=== PATIENT | female | born 2000 | race Caucasian/White ===

== ENCOUNTER 2022-12-25 21:41 | Emergency (ER) | payer OTHER, SELFPAY ==
[2022-12-25 21:44] VITALS: BP 160/92; PULSE 110; RESP 20; TEMP 36.8; O2SAT 97; BMI 42.8
--- NOTE | 2022-12-25 21:57 | XR_ITS ---
The [address] [address] Patient Name: DIONTE ESCAMILLA MRN: [id number] date: 2000 Sex: F Assigned Patient Location: ER Current Patient Location: Accession/Order Number: [id number] Exam Date: 12/25/2022 22:08 Report Date: 12/25/2022 23:05 At the request of: SO GIFFORD Procedure: XR foot LT min 3V EXAM: XR foot LT min 3V HISTORY: foot injury, foot pain COMPARISON: None. TECHNIQUE: 3 views of the left foot were obtained. FINDINGS: No definite acute fracture or dislocation is seen. There is a tiny ossific density at the medial aspect of the first metatarsophalangeal joint. The joint spaces are preserved. There is no significant left ankle joint effusion. IMPRESSION: 1. There is a tiny ossific density at the medial aspect of the left first metatarsophalangeal joint which could represent a small fracture fragment. Please correlate with point tenderness. Electronically authenticated by: Thao THAYER Date: 12/25/2022 23:05
--- NOTE | 2022-12-25 21:57 | ED.LOWEXI1 ---
HPI - Extremity Injury (Lower) General Chief Complaint: Extremity Injury, Lower Stated Complaint: LT FOOT INJURY Time Seen by Provider: 12/25/22 21:52 Source: patient Mode of arrival: Wheelchair Limitations: no limitations History of Present Illness HPI Narrative: the patient was walking along a sloped driveway and lost her balance, twisting the left foot as she fell. No other injuries - she only localizes pain along the distal and mid left foot. Nothing taken for pain [employer]. This occurred about an hour and a half ago. Related Data Home Medications Medication Instructions Recorded Confirmed No Known Home Medications 12/25/22 12/25/22 Allergies Allergy/AdvReac Type Severity Reaction Status Date / Time Sulfa (Sulfonamide Allergy Hives Verified 12/25/22 21:53 Antibiotics) Exam Narrative Exam Narrative: Nurses note and vital signs reviewed and patient is not hypoxic. afebrile General: The patient appears well and in no apparent distress. Patient is resting comfortably on cart. GCS = 15. Skin: Warm, dry, no pallor noted. Head: Normocephalic, atraumatic Eyes: PERRLA, EOMI ENT: no facial injury noted Cardiovascular: normal peripheral perfusion Respiratory: Patient is in no distress, no accessory muscle use Musculoskeletal: LEFT FOOT - Tenderness to the distal and mid foot along the dorsal surface. No heel or 5th metatarsal tenderness. Normal ROM toes left foot. No limitation to rom or deformity to left ankle. minimal left medial malleolus TTP. No additional sign of long bone fracture to the left LE - no distal tibia/fibular tenderness, no foot or ankle swelling. Neurological: A&O x4, no truncal ataxia, normal motor, normal sensory. Psychiatric: Cooperative Constitutional Vital Signs - 24 hr 12/25/22 21:44 Temperature 98.3 F Pulse Rate [Monitor] 110 H Respiratory Rate 20 Blood Pressure [Left Arm] 160/92 H Pulse Oximetry 97 Oxygen Delivery Method Room Air Course Vital Signs Vital signs: Vital Signs Temperature 98.3 F 12/25/22 21:44 Pulse Rate 110 H 12/25/22 21:44 Respiratory Rate 20 12/25/22 21:44 Blood Pressure 160/92 H 12/25/22 21:44 Pulse Oximetry 97 12/25/22 21:44 Oxygen Delivery Method Room Air 12/25/22 21:44 Temperature 98.3 F 12/25/22 21:44 Pulse Rate 110 H 06/25/23 21:44 Respiratory Rate 20 12/25/22 21:44 Blood Pressure 160/92 H 12/25/22 21:44 Pulse Oximetry 97 12/25/22 21:44 Oxygen Delivery Method Room Air 12/25/22 21:44 MDM - Extremity Injury (Lower) MDM Narrative Medical decision making narrative: patient given oral Motrin and sent for xrays of the left foot. No fracture identified. ED nurse applied an CARMELINA wrap to the patient's left foot - she was neurovascularly intact distally afterward. Patient discharged home with recommendation to take NSAIDs and/or tylenol and see Dr huggins for follow up if her pain persists. Imaging Data xr foot, left: Attestation: I personally reviewed and interpreted this imaging study as follows: My impression: no acute fracture or dislocation Discharge Plan Discharge Chief Complaint: Extremity Injury, Lower Clinical Impression: Sprain of foot, left Time of Disposition Decision: 22:30 Prescriptions / Home Meds: No Action No Known Home Medications Instructions: Foot Sprain (ED) Stand Alone Forms: Portal Instructions Referrals: Physician,Non-Staff, MD [Primary Care Provider] - 1 week
[2022-12-25] MEDS: IBUPROFEN 400 MG TABLET 800 MG PO (22:14)
== END 2022-12-25 22:40 | disposition home or self-care (01) ==
PROVIDERS: Emergency Provider Emergency Medicine
DX: S93.602A Unspecified sprain of left foot, initial encounter (principal); W01.0XXA Fall on same level from slipping, tripping and stumbling without subsequent striking against object, initial encounter
CPT/HCPCS: 73630; 99283

== ENCOUNTER 2023-11-12 02:49 | Emergency (ER) | payer OTHER, SELFPAY ==
[2023-11-12 02:54] VITALS: BP 148/102; PULSE 124; TEMP 37.1; O2SAT 96; BMI 50.5
--- NOTE | 2023-11-12 03:08 | ED.GENADUL1 ---
HPI HPI - General Adult General Chief complaint: Dental/Oral Stated complaint: Sore Throat, cough Time Seen by Provider: 11/12/23 02:56 Source: patient Mode of arrival: walk-in Limitations: no limitations History of Present Illness HPI narrative: presents with sore throat the past couple of days. able to swallow but hurts. Also coughing. Not short of breath. No definite fever. has chills Related Data Home Medications ?Medication ?Instructions ?Recorded ?Confirmed bupropion HCl 150 mg 24 hr tablet, 150 mg PO DAILY 11/12/23 11/12/23 extended release Allergies Allergy/AdvReac Type Severity Reaction Status Date / Time Sulfa (Sulfonamide Allergy Hives Verified 11/12/23 03:01 Antibiotics) Opioid HPI Opioid Management Most Recent Opioid Data: Last Pain Scale 8 11/12/23 03:06 Last ED Pain Assessment 11/12/23 03:06 Review of Systems ROS Status of ROS 10 or more systems reviewed and unremarkable except as noted in history and below Exam Constitutional Vital Signs, click to edit/add: Last Vital Signs Temp 98.7 F 11/12/23 02:54 Pulse 124 H 11/12/23 02:54 Resp 18 11/12/23 02:54 BP 148/102 H 11/12/23 02:54 Pulse Ox 96 11/12/23 02:54 O2 Del Method Room Air 11/12/23 02:54 Common normals: no apparent distress, oriented x3, alert and well nourished [facility] Common normals: normocephalic and head/scalp atraumatic Other: pharynx and tonsils erythematous with swelling Eye Common normals: PERRL, EOMs intact bilaterally and conjunctivae normal Respiratory Common normals: normal respiratory effort, no retractions, no use of accessory muscles and clear to auscultation bilaterally Cardio Common normals: regular rate, regular rhythm, S1 normal heart sound and S2 normal heart sound GI Common normals: Normal to inspection, nondistended, normoactive bowel sounds present Extremity Common normals: normal to inspection and full ROM Neuro Common normals: oriented x3, CN's II-XII intact bilaterally, moves all extremities and no focal motor deficits Psych Appearance: grossly normal Course Vital Signs Vital signs: Vital Signs Temperature 98.7 F 11/12/23 02:54 Pulse Rate 124 H 11/12/23 02:54 Respiratory Rate 18 11/12/23 02:54 Blood Pressure 148/102 H 11/12/23 02:54 Pulse Oximetry 96 11/12/23 02:54 Oxygen Delivery Method Room Air 11/12/23 02:54 Temperature 98.7 F 11/12/23 02:54 Pulse Rate 124 H 11/12/23 02:54 Respiratory Rate 18 11/12/23 02:54 Blood Pressure 148/102 H 11/12/23 02:54 Pulse Oximetry 96 11/12/23 02:54 Oxygen Delivery Method Room Air 11/12/23 02:54 Medical Decision Making MDM Narrative Medical decision making narrative: patient ill the past couple of days with dry cough and worsening sore throat. oral pharynx is erythematous and swollen. No asymmetry or exudate. Strep screen neg. cxray clear. patient treated as pharyngitis with clindamycin and discharged home to follow up with his family doctor Lab Data Labs: Lab Results 11/12/23 Range/Units 02:55 Streptococcus Screen Negative Imaging Data Chest x-ray: Radiologist's impression: ITS Impressions Chest X-Ray 11/12/23 03:17 IMPRESSION: 1. No acute cardiopulmonary abnormality. Electronically authenticated by: Thao THAYER Date: 11/12/2023 03:52 Discharge Plan Discharge Stand Alone Forms: Portal Instructions Chief Complaint: Dental/Oral Clinical Impression: Pharyngitis Patient Disposition: Home, Self-Care Prescriptions / Home Meds: No Action bupropion HCl 150 mg tablet extended release 24 hr 150 mg PO DAILY Print Language: Slovenian Instructions: Pharyngitis (ED) Additional Instructions: follow up with your doctor next week for recheck Referrals: PAOLO ORTIZ [Primary Care Provider] - 1 week
[2023-11-12 03:15] LABS: Internal Control Within Normal Limits; Strep A Antigen Screen Negative
--- NOTE | 2023-11-12 03:17 | XR_ITS ---
The [address] [address] Patient Name: DIONTE ESCAMILLA MRN: [id number] date: 2000 Sex: F Assigned Patient Location: ER Current Patient Location: ER Accession/Order Number: [id number] Exam Date: 11/12/2023 03:25 Report Date: 11/12/2023 03:52 At the request of: MANI FRANCES Procedure: XR chest 2V EXAM: XR chest 2V HISTORY: cough COMPARISON: None. TECHNIQUE: 2 views of the chest were obtained. FINDINGS: The cardiac silhouette is normal in size. The lungs are clear. There is no significant pneumothorax or pleural effusion. No acute osseous abnormality is seen. XR/XR chest 2V IMPRESSION: 1. No acute cardiopulmonary abnormality. Electronically authenticated by: Thao THAYER Date: 11/12/2023 03:52
[2023-11-12] MEDS: CLINDAMYCIN HCL 150 MG CAPSULE 300 MG PO (03:25)
[2023-11-12 04:40] VITALS: BP 137/107; PULSE 99; O2SAT 96
== END 2023-11-12 04:42 | disposition home or self-care (01) ==
PROVIDERS: Emergency Provider Internal Medicine; PCP Family Medicine
DX: J02.9 Acute pharyngitis, unspecified (principal); R05.9 Cough, unspecified
CPT/HCPCS: 71046; 87070; 87880; 99284

== ENCOUNTER 2023-12-26 02:37 | Emergency (ER) | payer OTHER, SELFPAY ==
[2023-12-26 02:42] VITALS: BP 146/103; PULSE 103; TEMP 37.1; O2SAT 98; BMI 48.4
--- OUTSIDE RECORDS SUMMARY | 2023-12-26 02:44 | XMS_ITS | CCD ---
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 Name Role Phone LIGIA, DR CHAD Roberts Primary Care Unavailable YANELIS, DR HOLLINS Attending Unavailable YANELIS, DR HOLLINS Consulting Unavailable YANELIS, DR HOLLINS Admitting Unavailable LIGIA, DR CHAD Roberts Primary Care Unavailable LIGIA, DR CHAD Roberts Admitting Unavailable LIGIA, DR CHAD Roberts Attending Unavailable LIGIA, DR CHAD Roberts Consulting Unavailable NONE, XXXX Primary Care Physician Unavailab Paolo Wilks Primary Care Physician Unavailable Primary Care Provider UnavailPaolo Villavicencio MD Primary Care Provider [phone] SANGEETA BURRELL Attending Unavailable HUY ESCOTO Attending Unavailable PAOLO ORTIZ Primary Care Unavailable SANGEETA BURRELL Referring Unavailable PAOLO ORTIZ Primary Care Unavailable SHERYL LÓPEZ Attending Unavailable PAOLO ORTIZ Primary Care Unavailable RICK CARPIO Attending Unavailable CRISTINO DIAZ Attending Unavailable CRISTINO DIAZ Attending Unavailable Paolo Ortiz Attending Unavailable Paolo Ortiz Attending Unavailable Paolo Ortiz Attending Unavailable Paolo Ortiz Attending Unavailable Dinesh Whatley Attending Unavailable CRISTINO DIAZ Attending Unavailable CRISTINO DIAZ Attending Unavailable CRISTINO DIAZ Attending Unavailable CRISTINO DIAZ Attending Unavailable CRISTINO DIAZ Attending Unavailable Allergies Allergy Classification Reported Allergen(s) Allergy Type Date of Onset Reaction(s) Facility (1 source) Sulfonamides (Antibiotic) Drug allergy (disorder) 07-12-2013 [facility] Repository (6 sources) Sulfacetamide; Translations: [sodium sulfacetamide ophthalmic] Drug Allergy Rash [facility] Medications Current Medications Medication Drug Class(es) Dates Sig (Normalized) Sig (Original) Albuterol (Eqv-ProAir HFA) 90 mcg/inh inhalation aerosol (4 sources) Start: 08-18-2023 Albuterol (Eqv-ProAir HFA) 90 mcg/inh inhalation aerosol See Instructions, 8.5 EA, Refill(s) 0, INHALE 2 PUFFS BY MOUTH EVERY 6 HOURS, [id number], 168, cm, 07/27/23 7:24:00 EST, Height/Length Dosing, 139.9, kg, 07/27/23 7:24:00 EST, Weight Dosing Start Date: 08/18/23 Status: Ordered 24 hr buPROPion hydrochloride 300 mg extended release oral tablet (4 sources) Aminoketone Start: 09-11-2023 take 1 tablet by mouth every twenty-four hours buPROPion 300 mg/24 hours ER Tab 300 mg = 1 tab(s), Oral, q24hr, # 90 tab(s), Refills(s) 1, Pharmacy: [facility]/pharmacy #[id number], 168, cm, 09/11/23 8:16:00 EDT, Height/Length Dosing, 142.5, kg, 09/11/23 8:16:00 EDT, Weight Dosing Start Date: 09/11/23 Status: Ordered Problems Active Problems Problem Classification Problem Date Documented Date Episodic/Chronic Anxiety disorders (4 sources) Anxiety 02-21-2023 Chronic Asthma (4 sources) Asthma 02-21-2023 Chronic Esophageal disorders (4 sources) Gastroesophageal reflux disease 02-21-2023 Chronic Headache; including migraine (4 sources) Migraine 02-21-2023 Chronic Malaise and fatigue (2 sources) Fatigue; Translations: [Other fatigue] Onset: 11-15-2023 10-30-2023 Episodic Mood disorders (11 sources) Depressive disorder; Translations: [Depression, unspecified] Onset: 10-12-2023 Chronic Other lower respiratory disease (1 source) Snoring; Translations: [Snoring] 10-30-2023 Episodic Other lower respiratory disease (1 source) Snoring; Translations: [Snoring] Onset: 11-15-2023 Episodic Other nutritional; endocrine; and metabolic disorders (4 sources) Calorie overload 09-11-2023 Chronic Other nutritional; endocrine; and metabolic disorders (1 source) Body mass index 40+ - severely obese; Translations: [Morbid (severe) obesity due to excess calories] 10-30-2023 Chronic Other nutritional; endocrine; and metabolic disorders (1 source) Severe obesity; Translations: [Morbid (severe) obesity due to excess calories] 11-01-2023 Chronic Other nutritional; endocrine; and metabolic disorders (1 source) Morbid (severe) obesity due to excess calories; Translations: [Morbid obesity with BMI of 50.0-59.9, adult (FORM[facility])] Onset: 11-15-2023 Chronic Other nutritional; endocrine; and metabolic disorders (1 source) Body mass index (BMI) 50.0-59.9, adult; Translations: [Morbid obesity with BMI of 50.0-59.9, adult ([facility])] Onset: 11-15-2023 Chronic Other screening for suspected conditions (not mental disorders or infectious disease) (4 sources) Encounter for screening for malignant neoplasm of cervix; Translations: [ENC SCREENING MALIG NEOPLASM CERV] Onset: 08-20-2021 Episodic Other upper respiratory disease (4 sources) Allergic rhinitis 02-21-2023 Chronic Other upper respiratory infections (4 sources) Acute upper respiratory infection 07-27-2023 Episodic Superficial injury; contusion (1 source) Contusion of foot; Translations: [Contusion of unspecified foot, initial encounter] Onset: 12-27-2022 Episodic Unclassified (3 sources) CONTACT W/AND (SUSP) EXPOS COVID-19; Translations: [CONTACT W/AND (SUSP) EXPOS COVID-19] Onset: 04-10-2021 Viral infection (4 sources) Infectious mononucleosis 02-21-2023 Episodic Past or Other Problems Problem Classification Problem Date Documented Da te Episodic/Chronic Unclassified (1 source) CONTACT W/AND (SUSP) EXPOS COVID-19; Translations: [CONTACT W/AND (SUSP) EXPOS COVID-19] Onset: 04-06-2021 Results Test Name Value Interpretation Reference Range Facil ity Video Visit - Telehealtho n 12-12-2023 Video Visit - Telehealth Start Time 4pm Stop Time 4:42pm Patient Reported Issues No qualifying data available. CSSRS Risk Assessment No qualifying data available. CSSRS Frequent Screener No qualifying data available. CSSRS Screen No qualifying data available. Mini Mental State Examination No qualifying data available. Diagnosis/Assessment /Treatment Plan 1. Unspecified mood [affective] disorder (F39: Unspecified mood [affective] disorder) Assessment and Plan No qualifying data available. Follow-up No qualifying data available Other Information Please Note: Portions of this chart may have been created with voice recognition software. Occasionally wrong word or sound alike substitutions may have occurred due to limitations of the voice recognition software. Please read the chart carefully and recognize, using context, where the substitutions have occurred. PARTICIPANT(S) IN THERAPY SESSION: Patient Only MSE: ATTITUDE ABOUT THERAPY: Cooperative MOOD: Expansive AFFECT: Full range , Congruent with topic., Labile THOUGHT CONTENT/PERCEPTIONS: Hallucinations: No hallucinations in any modality. Delusions: No delusions, paranoia. Compulsions: No obsessions, compulsions, or phobias. THOUGHT PROCESSES: Oriented to person and place and time. SUBSTANCE USE: None reported RISK ASSESSMENT: Suicidality: No suicidal ideation/intent or plans. Homicidality: No homicidal ideation/intent or plans. INTERVENTIONS TECHNIQUES USED: Review patient's progress since last session. 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 Patient remains uncomfortable with her current psychotropic medication, but her PCP recommended that she have a psychiatric evaluation. Patient has decided to undergo gastric bypass surgery, and needs to complete a sleep apnea test, blood work, and remain alcohol and nicotine free. 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 We began reviewing her Timeline of Significant Life Events. She talked about growing up with her mother who had significant drug issues (heroin and meth). Her mother currently has a warrant out for her arrest due to child support. 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 TREATMENT PLAN: GOAL: Patient will stabilize anxiety and/or depression while increasing ability to function on a daily basis. OBJECTIVES: Patient will: >Describe situations, thoughts, feelings, and actions associated with anxiety and/or depression . >Identify, challenge, and replace negative self-talk with positive, realistic, and empowering self-talk. > Actively participate in cognitive behavioral therapy for anxiety and/or depression. > Identify and discuss issues (past and present) that underlie anxious or depressive feelings. > Improve self-esteem and self-concept. THERAPEUTIC INTERVENTIONS: Therapist will: >Educate the patient about the cognitive, physiological, and behavioral components of anxiety/depression and its treatment. >Teach patient the principles of CBT/RET in order to better identify, challenge, and replace negative self-talk with positive, realistic, and empowering self-talk. > Motivate the patient to engage in activities that will increase self-esteem and help reduce anxiety and depressive symptoms. > Support the patient in following through with school, work, family, and social activities rather than escaping or avoiding them. >Help the patient to identify and articulate feelings and/or thoughts that contribute to anxiety and/or depression. HOMEWORK/ASSIGNMENT FOR NEXT SESSION: Timeline of Significant Life Events, Sentence Completion form RESPONSE TO INTERVENTION: Level of Trust/Counseling Relationship: Positive Level of Effort/Participation : Good Level of Overall Progress: No significant change Please Note: Portions of this chart may have been created with voice recognition software. Occasionally wrong word or sound alike substitutions may have occurred due to limitations of the voice recognition software. Please read the chart carefully and recognize, using context, where the substitutions have occurred. Problem List/Past Medical History Ongoing Acute URI Allergic rhinitis Anxiety Asthma Depression Excessive dietary caloric intake GERD (gastroesophageal reflux disease) Migraines Mononucleosis Unspecified mood [affective] disorder Historical No qualifying data Procedure/Surgical History Surgery. Medications Albuterol (Eqv-ProAir HFA) 90 mcg/inh inhalation aerosol, See Instructions buPROPion 300 mg/24 hours ER Tab, 300 mg= 1 tab(s), (more content not included)... Normal [facility] Comment on above: Result Comment: Elec tronically Signed By: [facility] Zimmerman\.gisel\Date and Time Signed: 12/12/23 12:42 EDT Guillermina 12-11-2023 GINNA Telephone (WIQ) DIONTE [id number]) 2000 F Date Time Provider Department 12/11/23 MADDIE DSOUZA WIQ During your visit today, we recorded the following information about you: Maddie Dsouza, [facility] 12/11/2023 8:08 AM Signed Smoking Cessation Navigation Outcome of contact: Left Message Comments: A voicemail has been left for this patient regarding Tobacco Cessation support options. If this patient has any further questions they can email us at or call us at [phone]. [employer] Commercial Title Examiner/Smoking Cessation Navigator: [facility] As of Date: 12/11/2023 (Not on File) Date Reviewed: 12/07/2023 Reviewed by: Huy Escoto PSYD - Fully Assessed Reason for Visit: Smoking Cessation [1387] Problem List As Of Date: 12/11/2023 (None) Encounter Status:Closed by JAYASHILACOLE RODMADDIE on 12/11/23 Normal [facility] ED Note-Physicianon 11-16-19 ED Note-Physician [id number]# 1.00TIFF Normal [facility] RAD - MISCon 11-16-2023 [facility] - MISC [id number] #1.00TIFF Normal [facility] Video Visit - Telehealtho n 11-06-2023 Video Visit - Telehealth Start Time 1:58pm Stop Time 3 PM Patient Reported Issues No qualifying data available. CSSRS Risk Assessment No qualifying data available. CSSRS Frequent Screener No qualifying data available. CSSRS Screen No qualifying data available. Mini Mental State Examination No qualifying data available. Diagnosis/Assessment /Treatment Plan 1. Unspecified mood [affective] disorder (F39: Unspecified mood [affective] disorder) Assessment and Plan No qualifying data available. Follow-up No qualifying data available Other Information Please Note: Portions of this chart may have been created with voice recognition software. Occasionally wrong word or sound alike substitutions may have occurred due to limitations of the voice recognition software. Please read the chart carefully and recognize, using context, where the substitutions have occurred. PARTICIPANT(S) IN THERAPY SESSION: Patient Only MSE: ATTITUDE ABOUT THERAPY: Cooperative MOOD: Stable AFFECT: Full range , Congruent with topic., Calm THOUGHT CONTENT/PERCEPTIONS: Hallucinations: No hallucinations in any modality. Delusions: No delusions, paranoia. Compulsions: No obsessions, compulsions, or phobias. THOUGHT PROCESSES: Clear and organized SUBSTANCE USE: None reported RISK ASSESSMENT: Suicidality: No suicidal ideation/intent or plans. Homicidality: No homicidal ideation/intent or plans. INTERVENTIONS TECHNIQUES USED: Review patient's progress since last session. 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 Patient did have a medical appointment about gastric bypass surgery, and she is considering her options. 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 Reviewed Fair Fighting Rules and out with the patient, but she expressed little hope that her boyfriend will change. Patient did fill out a Timeline of Significant Life Events and a Sentence Completion form. Patient was cooperative in reviewing some responses on a Sentence Completion form. Topics included: Safe spaces, losing her virginity at age 12, and people being untrustworthy. Patient talked about realizing that her mother is a worthless asshole when she was 5 years old. Her father was a drug addict and she was basically raised by her grandparents. Patient stated that, I feel ugly and insecure about myself. She described gaining over 100 pounds after her daughter was born. Patient has begun writing in a personal notebook. TREATMENT PLAN: GOAL: Patient will stabilize anxiety and/or depression while increasing ability to function on a daily basis. OBJECTIVES: Patient will: >Describe situations, thoughts, feelings, and actions associated with anxiety and/or depression . >Identify, challenge, and replace negative self-talk with positive, realistic, and empowering self-talk. > Actively participate in cognitive behavioral therapy for anxiety and/or depression. > Identify and discuss issues (past and present) that underlie anxious or depressive feelings. > Improve self-esteem and self-concept. THERAPEUTIC INTERVENTIONS: Therapist will: >Educate the patient about the cognitive, physiological, and behavioral components of anxiety/depression and its treatment. >Teach patient the principles of CBT/RET in order to better identify, challenge, and replace negative self-talk with positive, realistic, and empowering self-talk. > Motivate the patient to engage in activities that will increase self-esteem and help reduce anxiety and depressive symptoms. > Support the patient in following through with school, work, family, and social activities rather than escaping or avoiding them. >Help the patient to identify and articulate feelings and/or thoughts that contribute to anxiety and/or depression. HOMEWORK/ASSIGNMENT FOR NEXT SESSION: Timeline of Significant Life Events, Sentence Completion form RESPONSE TO INTERVENTION: Level of Trust/Counseling Relationship: Improving Level of Effort/Participation : Good Level of Overall Progress: No significant change Please Note: Portions of this chart may have been created with voice recognition software. Occasionally wrong word or sound alike substitutions may have occurred due to limitations of the voice recognition software. Please read the chart carefully and recognize, using context, where the substitutions have occurred. Problem List/Past Medical History Ongoing Acute URI Allergic rhinitis Anxiety Asthma Depression Excessive dietary caloric intake GERD (ga (more content not included)... Normal [facility] Comment on above: Result Comment: Elec tronically Signed By: [facility] Riddle\.gisel\Date and Time Signed: 11/06/23 15:03 EDT Video Visit - Telehealtho n 11-01-2023 Video Visit - Telehealth Start Time 8am Stop Time 8:54am Patient Reported Issues No qualifying data available. CSSRS Risk Assessment No qualifying data available. CSSRS Frequent Screener No qualifying data available. CSSRS Screen No qualifying data available. Mini Mental State Examination No qualifying data available. Diagnosis/Assessment /Treatment Plan 1. Unspecified mood [affective] disorder (F39: Unspecified mood [affective] disorder) Ordered: TELEHEALTH Psych Diagnostic Eval W/O Med Mgmt 10384 Assessment and Plan No qualifying data available. Follow-up No qualifying data available Other Information Please Note: Portions of this chart may have been created with voice recognition software. Occasionally wrong word or sound alike substitutions may have occurred due to limitations of the voice recognition software. Please read the chart carefully and recognize, using context, where the substitutions have occurred. PARTICIPANT(S) IN THERAPY SESSION: Patient Only MSE: ATTITUDE ABOUT THERAPY: Cooperative MOOD: Stable AFFECT: Full range , Congruent with topic., Positive THOUGHT CONTENT/PERCEPTIONS: Hallucinations: No hallucinations in any modality. Delusions: No delusions, paranoia. Compulsions: No obsessions, compulsions, or phobias. THOUGHT PROCESSES: Clear and organized SUBSTANCE USE: None reported RISK ASSESSMENT: Suicidality: No suicidal ideation/intent or plans. Homicidality: No homicidal ideation/intent or plans. INTERVENTIONS TECHNIQUES USED: Review patient's progress since last session. Develop Therapeutic Rapport Explore Family Dynamics Educate about Relationship Issues/Skills Plan treatment goals and objectives THEME OF SESSION/TOPIC/TREATM ENT GOALS: Exploration of Thoughts/Feelings Relationship Issues/Problems Work Issues/Problems Treatment goals and objectives NOTES/SUMMARY OF SESSION: Reviewed the patient's symptoms and behavior since the Diagnostic Assessment. She reported being uncomfortable with her current psychotropic medication and plans to meet with her PCP about possible changes. Patient also has a medical appointment about gastric bypass surgery. Worked to establish therapeutic rapport. 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 Reviewed relevant social history information. When asked about her current relationship, patient reported that they suck at communication. Patient also talked about her 14-year-old sister, Charmaine. Planned and created treatment goals and objectives. Patient agreed to fill out a Timeline of Significant Life Events and a Sentence Completion form. I will also send her a copy of Fair Fighting Rules to discuss in future sessions. TREATMENT PLAN: GOAL: Patient will stabilize anxiety and/or depression while increasing ability to function on a daily basis. OBJECTIVES: Patient will: >Describe situations, thoughts, feelings, and actions associated with anxiety and/or depression . >Identify, challenge, and replace negative self-talk with positive, realistic, and empowering self-talk. > Actively participate in cognitive behavioral therapy for anxiety and/or depression. > Identify and discuss issues (past and present) that underlie anxious or depressive feelings. > Improve self-esteem and self-concept. THERAPEUTIC INTERVENTIONS: Therapist will: >Educate the patient about the cognitive, physiological, and behavioral components of anxiety/depression and its treatment. >Teach patient the principles of CBT/RET in order to better identify, challenge, and replace negative self-talk with positive, realistic, and empowering self-talk. > Motivate the patient to engage in activities that will increase self-esteem and help reduce anxiety and depressive symptoms. > Support the patient in following through with school, work, family, and social activities rather than escaping or avoiding them. >Help the patient to identify and articulate feelings and/or thoughts that contribute to anxiety and/or depression. HOMEWORK/ASSIGNMENT FOR NEXT SESSION: Timeline of Significant Life Events, Sentence Completion form RESPONSE TO INTERVENTION: Level of Trust/Counseling Relationship: Improving Level of Effort/Participation : Good Level of Overall Progress: No significant change Please Note: Portions of this chart may have been created with voice recognition software. Occasionally wrong word or sound alike substitutions may have occurred due to limitations of the voice recognition software. Please read the chart carefully and recognize, using context, where the substitutions have occurred. Problem List/Past Medical History Ongoing Acute URI Allergic rhinitis Anxiety Asthma Depression Excessive dietary caloric intake GERD (gastroesophageal reflux disease) Migraines Mononucleosis Unspecified mood [affective] disorder Historical No qualifying data Procedure/Surgical History Surgery. Me (more content not included)... Normal [facility] Comment on above: Result Comment: Elec tronically Signed By: [facility] Zimmerman\.gisel\Date and Time Signed: 11/01/23 12:39 EDT Video Visit - Telehealtho n 10-26-2023 Video Visit - Telehealth Start Time 1pm Stop Time 1:50 PM General Information No qualifying data available. Communication Needs and Preferences No qualifying data available. Developmental History No qualifying data available. and History No qualifying data available. History Comments: Labor History Comments: Ed, , Employment History No qualifying data available. Strengths, Needs, Abilities, Preferences No qualifying data available. Therapeutic Survey Comments: Amish Needs No qualifying data available. Amish/Spiritual/ Cultural Comments: Financial Situation No qualifying data available. Living and Resources No qualifying data available. Legal Status and History No qualifying data available. Diagnosis/Assessment /Treatment Plan 1. Depression (F32.A: Depression, unspecified) Assessment and Plan No qualifying data available. Follow-up No qualifying data available Other Information This visit was conducted via 2-way video communications due to the restrictions of the COVID-19 pandemic. All issues, below, were discussed and addressed but no physical exam was conducted other than those areas of the body visible to telecommunications. If it is deemed that the patient should be evaluated in the clinic, the patient will be directed to the appropriate clinic or venue. The patient and/or their guardian verbally consented to this visit. Referred by: Paolo Ortiz MD Chief Complaint: Depression History of Present Illness: Patient is a 23 y/o female referred for mental health services by Paolo Ortiz MD due to depressive symptoms. At the patient's 09/11/2023 medical appointment, Paolo Ortiz MD reported: ...Dionte is a 23 year old female presenting for 6 week follow up anxiety...SOLOMON started welbutrin... Welbutrin not working. Got a job there a week didn't last a week, she started crying and just decided not to go back. Follow up for Mental Status: Medication adherence- Yes, takes medication as prescribed Medication refill needed: no not working Suicidal thoughts-Not at this time Most recent LORI: 13 Most recent PHQ: 6 phq9: 22 questions/concerns: wants help losing weight, has had a gym membership for 6 months now, cut down portion sizes nothing is working for her. History of Present Illness Here for follow up. - Pt states her depression is weight base. - She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 person's weight is composed of fat. BMI does not measure body fat directly. Rather, it is an alternative to procedures that directly measure body fat, which can be difficult and expensive. BMI can help identify people who may be at higher risk for certain medical problems. What are BMI measurements used for? BMI is used as a screening tool to identify possible weight problems. It helps determine whether a person is obese, overweight, a healthy weight, or underweight. BMI is useful for: ? Identifying a weight problem that may be related to a medical condition or may increase the risk for medical problems. ? Promoting changes, such as changes in diet and exercise, to help reach a healthy weight. BMI screening can be repeated to see if these changes are working. How is BMI calculated? BMI involves measuring your weight in relation to your height. Both height and weight are measured, and the BMI is calculated from those numbers. This can be done either in [place] ([place] or metric measurements. Note that charts and online BMI calculators are available to help you find your BMI quickly and easily without having to do these calculations yourself. To calculate your BMI in [place] ([place] measurements: 1. Measure your weight in pounds (lb). 2. Multiply the number of pounds by 703. ? For example, for a person who weighs 180 lb, multiply that number by 703, which equals 126,540. 3. Measure your height in inches. Then multiply that number by itself to get a measurement called inches squared. ? For example, for a person who is 70 inches tall, the inches squared measurement is 70 inches x 70 inches, which equals 4,900 inches squared. 4. Divide the total from step 2 (number of lb x 703) by the total from step 3 (inches squared): 126,540 ? 4,900 = 25.8. This is your BMI. To calculate your BMI in metric measurements: 1. Measure your weight in kilograms (kg). 2. Measure your height in meters (m). Then multiply that number by itself to get a measurement called meters squared. ? For example, for a person who is 1.75 m tall, the meters squared measurement is 1.75 m x 1.75 m, which is equal to 3.1 meters squared. 3. Divide the number of kilograms (your weight) by the meters squared number. In this example: 70 ? 3.1 = 22.6. This is your BMI. What do the results mean? BMI charts are used to identify whether you are underweight, normal weight, overweight, or obese. The following guidelines will be used: ? Underweight: BMI less than 18.5. ? Normal weight: BMI between 18.5 and 24.9. ? Overweight: BMI between 25 and 29.9. ? Obese: BMI of 30 or above. Keep these notes in mind: ? Weight includes both fat and muscle, so someone with a muscular build, such as an athlete, may have a BMI that is higher than 24.9. In cases like these, BMI is not an accurate measure of body fat. ? To determine if excess body fat is the cause of a BMI of 25 or higher, further assessments may need to be done by a health care provider. ? BMI is usually interpreted in the same way for men and women. Where to find more information For more information about BMI, including tools to quickly calculate your BMI, go to these websites: ? Centers for Disease Control and Prevention: www.cdc.gov ? [place] [employer]: www.heart.org ? National Heart, Lung, and Blood [place]: www.nhlbi.nih.gov Summary ? Body mass index (BMI) is a number that is calculated from a person's weight and height. ? BMI may help estimate how much of a person's weight is composed of fat. BMI can help identify those who may be at higher risk for certain medical problems. ? BMI can be measured using Armenian measurements or metric measurements. ? BMI charts are used to identify whether you are underweight, normal weight, overweight, or obese. This information is not intended to replace advice given to you by your health care provider. Make sure you discuss any questions you have with your health care provider. Document Revised: 03/11/2020 Document Reviewed: 01/17/2020 [employer] Patient Education ? 2022 [employer] Normal [facility] ED Note-Physicianon 02-23-20 23 ED Note-Physician [id number] #1.00CD:127 [facility] Discharge Instructionson Discharge Instructions [id number] 2#1.00CD:127 [facility] ED Clinical Summaryon 2022 ED Clinical Summary [place] [id number] ED Clinical Summary Person Information Name: DIONTE ESCAMILLA/[facility] Age: 22 Years : 2000 Sex: Female Language: Armenian PCP: NONE, XXXX Marital Status: Single Visit Id: Visit Reason: Foot pain-swelling; Ankle pain-swelling; LT FOOT PAIN Speciality: Acuity: 4 Enc Type: Emergency Med Service: Emergency Arrival: 12/26/2022 22:44:20 Discharge: 12/27/2022 00:38:10 LOS: 000 01:54 Checkin: 12/26/2022 22:44:20 Checkout: 12/27/2022 00:38:10 Dispo Type: Home (Routine DC) EVENTS: Event Name Event Status Request Date/Time Start Date/Time Complete Date/Time Arrive Complete 12/26/2022 22:44:20 12/26/2022 22:44:20 12/26/2022 22:44:20 Document Home Meds Request 12/26/2022 22:44:20 Triage Complete 12/26/2022 22:44:20 12/26/2022 22:53:51 12/26/2022 22:53:51 Dr Exam Complete 12/26/2022 22:46:45 12/26/2022 22:46:45 12/26/2022 22:46:45 Registration Complete 12/26/2022 22:46:45 12/26/2022 22:51:44 12/26/2022 22:51:44 Reg Complete Request 12/26/2022 22:51:44 Reg Bed Request Complete 12/26/2022 22:51:44 12/26/2022 22:51:44 12/26/2022 22:51:44 Dr Exam Complete 12/26/2022 22:53:38 12/26/2022 22:53:38 12/26/2022 22:53:38 Registration Start 12/26/2022 22:53:38 12/26/2022 22:55:35 Bed Assign Complete 12/26/2022 22:55:35 12/26/2022 22:55:35 12/26/2022 22:55:35 RN Exam Complete 12/26/2022 22:55:35 12/26/2022 23:26:16 12/26/2022 23:26:16 X-Ray Complete 12/26/2022 23:01:43 12/26/2022 23:45:56 12/26/2022 23:57:50 Wet Read Request 12/26/2022 23:57:50 Meds Admin Complete 12/27/2022 00:13:37 12/27/2022 00:36:44 Patient Care Complete 12/27/2022 00:13:37 12/27/2022 00:33:28 Discharge Complete 12/27/2022 00:14:17 12/27/2022 00:38:15 12/27/2022 00:38:15 Transfer Complete 12/27/2022 00:38:15 12/27/2022 00:38:15 12/27/2022 00:38:15 ADDRESS: [facility] [place] [id number] [facility] DOC NOTES: MEDICAL INFORMATION: Prescriptions Given: PATIENT EDUCATION INFORMATION: Instructions: Foot Contusion Follow up: With: Address: When: XXXX NONE , [place] In 3 days 12/30/2022 Comments: Call the office of your primary care doctor to arrange for follow-up within the above-stated timeframe. Follow-up with your primary care doctor about this ED visit. You should review your labs, imaging, and diagnoses from this ED visit with your primary care physician. If you were prescribed medications you should discuss possible side-effects and drug interactions with your pharmacist. Call 911 or go to the nearest Emergency Department if you develop any new or worsening symptoms. DIAGNOSIS: Foot contusion Normal [facility] ED Note-Physicianon 12-28-19 ED Note-Physician Basic Information Time Seen: Eric Rosenthal PA-C 12/26/2022 22:46 Chief Complaint complains of left foot and ankle pain. states twisted it yesterday. swelling to area. History of Present Illness 19-year-old female presents ED with complaint of left foot pain after falling yesterday. Patient reports that she slipped on a curtain and fell. Patient is uncertain if she rolled her ankle or struck her foot on anything, but has been having ongoing pain of the dorsal surface of her left foot as well as swelling and some bruising especially in the area of the first MTP joint. Patient is complaining of difficulty ambulating due to pain. Patient denies any lacerations or abrasions. Patient denies any pain of her left knee or of any other part of her body. Patient reports she did not strike her head when she fell. Patient Dors is purely mechanical fall. Patient reports being generally otherwise healthy, not any blood thinners or any other medications. Patient reports she is taken Tylenol today with some control of her pain. Patient is also been using an Parish wrap with some relief. Review of Systems Short ROS Physical Exam Vitals & Measurements T: 36.7 ?C(Oral) HR: 94(Peripheral) RR: 16 BP: 147/99 SpO2: 99% HT: 168 cm WT: 120 kg BMI: 42.52 General: Pt is in NAD, nontoxic appearing Skin: Pt skin is warm and dry, no rashes or lesions appreciated HEENT: Atraumatic, normocephalic. Pulmonary: Breathing normally, no respiratory distress Cardiovascular: Peripheral perfusion intact Musculoskeletal: Patient with edema and bruising of the dorsal surface of her left foot as well as pain on palpation. Patient with any pain on palpation of her left ankle or with ranging of the left ankle joint. Neurological: Pt is alert and oriented. Psychiatric: Pt is cooperative, communicative, appropriately reactive Medical Decision Making Number and Complexity of Problems Differential Diagnosis: [] [facility] Data External documents reviewed: Not applicable My EKG interpretation: Not applicable My CT interpretation: Not applicable My X-ray interpretation: No evidence of fracture or other acute osseous abnormality on x-ray of left foot My Ultrasound interpretation: Not applicable Decision rules/scores evaluated: Not applicable Discussed with: Not applicable Treatment and Disposition ED Course: Patient presents ED with complaint of left foot pain after a fall. No evidence of fracture on x-ray. Patient with signs symptoms history most consistent with a contusion of the left foot. Due to difficulty walking and pain, did give patient a surgical boot for her left foot as well as a dose of Toradol. Patient struck to follow-up with PCP with ongoing pain disability. Return precautions discussed. Patient questions answered. Patient discharged home. Shared decision making: As above Code status: Not addressed during this visit Assessment/Plan Foot contusion (S90.30XA: Contusion of unspecified foot, initial encounter) Orders: ketorolac, 60 mg = 2 mL, Injection, IntraMuscular, Once, Stop date 12/27/22 0:12:00 EDT, STAT, Start date 12/27/22 0:12:00 EDT, 12/27/22 0:12:00 EDT Surgical Boot XR Foot 3+ Views Left Disposition Plan Patient Discharge Condition Stable Discharge Disposition To home Discharge Prescription List Prescriptions No active prescription medications Follow-up With When Contact Information XXXX NONE In 3 days 12/30/2022 EDT [place] Additional Instructions: Call the office of your primary care doctor to arrange for follow-up within the above-stated timeframe. Follow-up with your primary care doctor about this ED visit. You should review your labs, imaging, and diagnoses from this ED visit with your primary care physician. If you were prescribed medications you should discuss possible side-effects and drug interactions with your pharmacist. Call 911 or go to the nearest Emergency Department if you develop any new or worsening symptoms. Patient Education Foot Contusion Attestation Patient seen and evaluated by the physician teaching assistant. Attending physician was present in the emergency department and supervised care. This visit was performed by both the physician and an APC. I performed all aspects of the MDM as documented. This report was transcribed using voice recognition software. Every effort was made to ensure accuracy, however, inadvertently computerized delineator mistakes may be present. Appropriate healthcare PPE was used in evaluating this patient. The patient was placed in a mask. The healthcare provider was wearing mask, gloves, and utilizing proper hand hygiene. All equipment was properly cleansed Problem List/Past Medical History Ongoing No qualifying data Historical No qualifying data Procedure/Surgical History None. Medications Inpatient ketorolac 60 mg/2 mL Injection, 60 mg= 2 mL, IntraMuscular, Once Home No active home medications Allergies Sulfacetamide Sodium (Rash) Social History Alco (more content not included)... [facility] Comment on above: Result Comment: Elec tronically Signed By: Eric Rosenthal PA-C\.br\Date and Time Signed: 12/27/22 00:30 EDT\.br\Electronically Co-Signed By: Dinesh Whatley DO\.br\Date and Time Co-Signed: 12/27/22 01:12 EDT ED Patient Education Noteon 12-27-2022 ED Patient Education Note Orthopedics Foot Contusion A foot contusion is a deep bruise to the foot. Contusions are the result of an injury to tissues and muscle fibers under the skin. The injury causes bleeding under the skin. The skin over the contusion may turn blue, purple, or yellow. Minor injuries will cause a painless contusion, but more severe contusions may stay painful and swollen for a few weeks. What are the causes? This condition is usually caused by a hard hit or direct force to your foot, such as having a heavy object fall on your foot. What are the signs or symptoms? Symptoms of this condition include: ? Swelling of the foot. ? Pain and tenderness of the foot. ? Discoloration of the foot. The area may have redness and then turn blue, purple, or yellow. How is this diagnosed? This condition may be diagnosed based on: ? Your medical history. ? A physical exam. In some cases, imaging tests may be done to check for other injuries. These may include: ? An X-ray to check for broken bones (fractures). ? CT scan or MRI to check for torn or injured ligaments. How is this treated? In general, the best treatment for a foot contusion is rest, ice, pressure (compression), and elevation. This is often called RICE therapy. An elastic wrap may be recommended to support your foot. Zzmj-lju-aivhqxn anti-inflammatory medicines may also be recommended for pain control. If your swelling or pain is severe, you may be given crutches. Follow these instructions at home: RICE therapy ? Rest the injured area. Try to avoid standing or walking while your foot is painful. ? If directed, put ice on the injured area. ? Put ice in a plastic bag. ? Place a towel between your skin and the bag. ? Leave the ice on for 20 minutes, 2?3 times a day. ? If directed, apply light compression to the injured area using an elastic wrap. Make sure the wrap is not too tight. Remove and reapply the wrap as told by your health care provider. If your toes become numb, cold, or blue, take the wrap off and reapply it more loosely. ? Raise (elevate) the injured area above the level of your heart while you are sitting or lying down. General instructions ? Take hrrg-ypf-ozgztmw and prescription medicines only as told by your health care provider. ? Use crutches as told by your health care provider, if this applies. Do not use the injured foot to support your body weight until your health care provider says that you can. ? Do not use any products that contain nicotine or tobacco, such as cigarettes, e-cigarettes, and chewing tobacco. These can delay healing. If you need help quitting, ask your health care provider. ? Keep all follow-up visits as told by your health care provider. This is important. Contact a health care provider if: ? Your symptoms do not improve after several days of treatment. ? You have redness, swelling, or pain in your foot or toes. ? You have difficulty moving the injured area. ? Your swelling or pain is not relieved with medicines. Get help right away if: ? You have severe pain. ? Your foot or toes become numb. ? Your foot or toes become pale or cold. ? You cannot move your foot or ankle. ? Your foot is warm to the touch. Summary ? A foot contusion is a deep bruise to the foot. ? This condition is usually caused by a hard hit or direct force to your foot. ? Symptoms include swelling, pain, and discoloration in the injured area. ? In general, the best treatment for a foot contusion is rest, ice, pressure (compression), and elevation. This information is not intended to replace advice given to you by your health care provider. Make sure you discuss any questions you have with your health care provider. Document Revised: 09/22/2021 Document Reviewed: 09/22/2021 [employer] Patient Education ? 2022 [employer] Normal [facility] ED Patient Summaryon 023 ED Patient Summary [place] [id number] Patient Discharge Instructions Person Information Name: DIONTE ESCAMILLA Age: 22 Years Arrival Date: 12/26/2022 22:44:20 Discharge Diagnosis: Foot contusion Primary Care Physician: NONE, XXXX Provider Information Primary Provider: Dinesh Whatley DO Advanced Director Of Sustainable Design:Eric Rosenthal PA-C The exam and treatment you received in the Emergency Department were for an urgent problem and are not intended as complete care. It is important that you follow up with a doctor, nurse practitioner, or physician?s teaching assistant for ongoing care. If your symptoms become worse or you do not improve as expected and you are unable to reach your usual health care provider, you should return to the Emergency Department. We are available 24 hours a day. DIONTE ESCAMILLA has been given the following list of patient education materials, prescriptions and follow-up instructions: Follow-up Instructions: With: Address: When: XXXX NONE , [place] In 3 days 12/30/2022 Comments: Call the office of your primary care doctor to arrange for follow-up within the above-stated timeframe. Follow-up with your primary care doctor about this ED visit. You should review your labs, imaging, and diagnoses from this ED visit with your primary care physician. If you were prescribed medications you should discuss possible side-effects and drug interactions with your pharmacist. Call 911 or go to the nearest Emergency Department if you develop any new or worsening symptoms. In the event that this physician does not participate in your insurance network, please consult with your insurance company to find a nearby participating provider. Patient Education Materials: Foot Contusion A MESSAGE TO ALL PATIENTS REGARDING OPIOIDS PRESCRIPTION OPIOIDS: WHAT YOU NEED TO KNOW Prescription opioids can be used to help relieve nmlmrmez-zw-qdapcy pain and are often prescribed following a surgery or injury, or for certain health conditions. These medications can be an important part of the treatment but also come with serious risks. It is important to work with your healthcare provider to make sure you are getting the safest, most effective care. WHAT ARE THE RISKS AND SIDE EFFECTS OF OPIOID USE? Prescription opioids carry serious risks of addiction and overdose, especially with prolonged use. An opioid overdose, often marked by slowed breathing, can cause sudden . The use of prescription opioids can have a number of side effects as well, even when taken as directed: ? Tolerance?meaning you might need to take more of the medication for the same pain relief ? Physical dependence?meaning you have symptoms of withdrawal when a medication is stopped ? Increased sensitivity to pain ? Constipation ? Nausea, vomiting, and dry mouth ? Sleepiness and dizziness ? Confusion ? Depression ? Low levels of testosterone that can result in lower sex drive, energy, and strength ? Itching and sweating RISKS ARE GREATER WITH: ? History of drug misuse, substance use disorder, or overdose ? Mental health conditions (such as depression or anxiety) ? Sleep apnea ? Older age (65 years and older) ? Avoid alcohol while taking prescription opioids. Also, unless specifically advised by your health care provider, medications to avoid include: ? Benzodiazepines (such as Xanax or Valium) ? Muscle relaxants (such as Soma or Flexeril) ? Hypnotics (such as Ambien or Lunesta) ? Other prescription opioids KNOW YOUR OPTIONS Talk to your health care provider about ways to manage your pain that don?t involve prescription opioids. Some of these options may actually work better and have fewer risks and side effects. Options may include: ? Pain relievers such as acetaminophen, ibuprofen, and naproxen ? Some medication that are also used for depression or seizures ? Physical therapy and exercise ? Cognitive behavioral therapy, a psychological, goal-directed approach, in which patients learn how to modify physical, behavioral, and emotional triggers of pain and stress. IF YOU ARE PRESCRIBED OPIOIDS FOR PAIN: ? Never take opioids in greater amounts or more often than prescribed. ? Follow up with your primary health care provider. o Work together to create a plan on how to manage your pain. o Talk about ways to help manage your pain that don?t involve prescription opioids. o Talk about any and all concerns and side effects. ? Help prevent misuse and abuse o Never sell or share prescription opioids. o Never use another person?s prescription opioids. ? Store prescription opioids in a secure place and out of reach of others (this may include visitors, children, friends, and family). ? Safely dispose of unused prescription opioids: Find your community drug take-back program or your pharmacy mail-back (more content not included)... [facility] XR Foot 3+ Views Lefton 12-02 XR Foot 3+ Views Left Exam Date/Time: 12/26/2022 23:57 EDT Reason for Exam: Pain, Traumatic Report IMPRESSION: NO DISPLACED FRACTURE OR SIGNIFICANT POSTTRAUMATIC COMPLICATION IDENTIFIED. EXAM: XR Foot 3+ Views Left DATE: 12/26/2022 CLINICAL HISTORY: Pain, Traumatic. COMPARISON: None available. TECHNIQUE: AP, lateral and oblique radiographs of the left foot were obtained. FINDINGS: There is no fracture, significant degenerative changes, dislocation, worrisome bone destruction, radiodense foreign bodies, or other posttraumatic complication identified. Ordering Provider: Eric Rosenthal FINAL REPORT Dictated: 12/27/2022 5:28 am Derrick Pressley MD Signed (Electronic Signature): 12/27/2022 5:28 am Signed by: Derrick Pressley MD Transcribed by: ISAAC Technologist: JANNA Technical Comments Radiation Dose: Ka,r in mGy = na DAP = na [facility] Consent for Treatmenton 12-02 Consent for Treatment [id number] #1.00CD:127 [facility] PAP ACOG PANEL 2: 20 to 28on 08-25-2021 . . Normal [facility] Comment on above: Performed By: #### [id number] #### [facility] [address] [address] [address] Mariah Garcia Age Gdln ACOG Testing - [facility] Comment on above: Performed By: #### [id number] #### [facility] [address] [place] [address] Dr. Mariah Garcia DIAGNOSIS: Comment Normal [facility] Comment on above: Result Comment: NEGA TIVE FOR INTRAEPITHELIAL LESION OR MALIGNANCY. Performed By: #### [id number] #### [facility] [address] [place] [address] Dr. Mariah Garcia Methodology: Comment Normal [facility] Comment on above: Result Comment: This liquid based ThinPrep(R) pap test was screened with the use of an image guided system. Performed By: #### [id number] #### [facility] [address] [place] [address] Dr. Mariah Garcia Note: Comment Normal [facility] Comment on above: Result Comment: The Pap smear is a screening test designed to aid in the detection of premalignant and malignant conditions of the uterine cervix. It is not a diagnostic procedure and should not be used as the sole means of detecting cervical cancer. Both false-positive and false-negative reports do occur. . Performed By: #### [id number] #### [facility] [address] [place] [address] Dr. Mariah Garcia Performed by: Comment Normal [facility] Comment on above: Result Comment: Jesse Burrell, Photographic Machine Operator (ASCP) Performed By: #### [id number] #### [facility] [address] [place] [address] Dr. Mariah Garcia Reflex Criteria: Comment Normal [facility] Comment on above: Result Comment: The HPV DNA reflex criteria were not met with this specimen result therefore, no HPV testing was performed. . Performed By: #### [id number] #### [facility] [address] [place] [address] Dr. Mariah Garcia Specimen adequacy: Comment Normal [facility] Comment on above: Result Comment: Sati sfactory for evaluation. Endocervical and/or squamous metaplastic cells (endocervical component) are present. Performed By: #### [id number] #### [facility] [address] [place] [address] Dr. Mariah Garcia CHLAMYDIA/GONOCOCCUS BIRGIT (SW AB/URINE/PAPon 08-23-2021 Chlamydia trachomatis, BIRGIT Negative Normal Negative [facility] Comment on above: Performed By: #### C T/NGNA #### [facility] [address] [place] [address] Dr. Mariah Garcia Neisseria gonorrhoeae, BIRGIT Negative Normal Negative [facility] Comment on above: Performed By: #### C T/NGNA #### [facility] [address] [place] [address] Dr. Mariah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 history of obesity related medical conditions. Review of systems was significant for: Difficulty swallowing / foods sticking in throat: No, Heartburn: 1x per month with tomatoes , Chest Pain: No, Filling up quickly at meals: No, Loss of appetite: No, Nausea: No, Vomiting: No, Abdominal pain: No, Bloody or black, bowel movements: No, Constipation: No, Diarrhea: No, Vomiting blood: No, Recent change in weight: No On examination today, They appear morbidly obese, euthyroid, and not cushingoid. Video exam. Visit Diagnoses: Class 3 severe obesity without serious comorbidity with body mass index (bmi) of 50.0 to 59.9 in adult, unspecified obesity type (hcc) (primary encounter diagnosis) In summary, Ms. Escamilla is a 23 year old female with Morbid Obesity with BMI 51, who I feel is a good candidate for metabolic and weight loss surgery. We have reviewed nutritional changes, post-operative recovery, and the potential for excess skin following surgery and subsequent weight loss. Risks of nicotine before and after bariatric surgery were also discussed with patient. Patient has received information regarding probable and potential postoperative complications, dietary, and medical postoperative limitations, and potential cosmetic sequelae. Expected outcomes and lifestyle changes of the different procedures have been reviewed as well. Based on their medical and surgical history, they are a candidate for sleeve gastrectomy, Jose en Y gastric bypass, duodenal switch. She want's to continue to learn more about RYGB and DS to decide on what way she want's to go. My weight loss goal prior to initiation of a liquid diet is to maintain. Patient will continue through the program and return to me prior to their planned surgery for preoperative teaching. Medical Decision Making: Problems: Low: Stable chronic illness Risk: Moderate: Decision on elective major surgery w/o risk factors Medical Decision Making Level: 3 - Low BMI Surgical Pathway Visit type: Bariatric Surgeon Visit RICK CARPIO MD documented in this encounter [facility] 11-01-2023 Note HNO ID: [id number] Author: RICK CARPIO MD Service: ? Author Type: Physician Type: Progress Notes Filed: 11/01/2023 12:54 Note Text: RICK CARPIO MD, [facility], [facility] CELL: [phone] OFFICE: [phone] FAX: [phone] NEW PATIENT VIRTUAL CONSULT VISIT Consultation requested by Dr. Paolo Ortiz for an opinion regarding obesity therpay. My final recommendations will be communicated back to the requesting physician by way of shared Medical record or letter to requesting physician via [place] mail. This is a virtual visit using FAZUA video visit. It required patient-provider interaction for the medical decision making as documented below. I have communicated my name and active licensure. The patient's identity and physical location were verified at the time of this visit. Either the patient or their legal outbound sales representative has been informed of the risks and benefits of -- and alternatives to -- treatment through a remote evaluation and consents to proceed with the evaluation remotely. Ms. Escamilla is a 23 year old female with a BMI of 51 who was seen today for surgical evaluation for obesity. Their goal weight is 200 lbs, or 31% TWL goal. Prior to the visit, they were inclined towards (unsure). They has no past surgical history on file. They has no past medical history on file. They have no history of anesthesia related complications. They have no history of venous thromboembolism. They are not on antiplatelet medications or on anticoagulant medications. They are not on non-steroidal anti-inflammatory medications. They are not on glucocorticoids or any other immunotherapies. They do not have a history of untreated hypothyroidism or glucocorticoid excess. Socially, they do not use tobacco and do not drink alcohol. There is no family history of anesthesia related complications, and none of venous thromboembolism. There is family history of obesity related medical conditions. Review of systems was significant for: Difficulty swallowing / foods sticking in throat: No, Heartburn: 1x per month with tomatoes , Chest Pain: No, Filling up quickly at meals: No, Loss of appetite: No, Nausea: No, Vomiting: No, Abdominal pain: No, Bloody or black, bowel movements: No, Constipation: No, Diarrhea: No, Vomiting blood: No, Recent change in weight: No On examination today, They appear morbidly obese, euthyroid, and not cushingoid. Video exam. Visit Diagnoses: Class 3 severe obesity without serious comorbidity with body mass index (bmi) of 50.0 to 59.9 in adult, unspecified obesity type (hcc) (primary encounter diagnosis) In summary, Ms. Escamilla is a 23 year old female with Morbid Obesity with BMI 51, who I feel is a good candidate for metabolic and weight loss surgery. We have reviewed nutritional changes, post-operative recovery, and the potential for excess skin following surgery and subsequent weight loss. Risks of nicotine before and after bariatric surgery were also discussed with patient. Patient has received information regarding probable and potential postoperative complications, dietary, and medical postoperative limitations, and potential cosmetic sequelae. Expected outcomes and lifestyle changes of the different procedures have been reviewed as well. Based on their medical and surgical history, they are a candidate for sleeve gastrectomy, Jose en Y gastric bypass, duodenal switch. She want's to continue to learn more about RYGB and DS to decide on what way she want's to go. My weight loss goal prior to initiation of a liquid diet is to maintain. Patient will continue through the program and return to me prior to their planned surgery for preoperative teaching. Medical Decision Making: Problems: Low: Stable chronic illness Risk: Moderate: Decision on elective major surgery w/o risk factors Medical Decision Making Level: 3 - Low BMI Surgical Pathway Visit type: Bariatric Surgeon Visit RICK CARPIO MD [facility] 10-30-2023 Instructions Sangeeta Burrell MD - 10/30/2023 11:01 AM EDT INSTRUCTIONS: 1) Please contact me (Dr. Burrell) if you have not heard about your test results within a few days after you had them done. Thank you: Contact information: [facility]/Attention: Dr. Burrell [address] [place] [address] 2) Please check with your insurance company regarding cost/coverage of any tests ordered prior to having them completed. Sher Escamilla , Thank you for completing your visit today and we welcome you to the surgical program. We are sure that you will still have some additional questions and encourage you to reach out to your care provider via [employer] OR your Patient Navigator. The contact information for each Navigator is listed below: Sharita Dudley and Marce: Sil Sharita Jimenez, Michelle, and Edy: Shona Drs Rene, Frank, and Nathan: Mary Sharita Tavera and Talat: Jennifer Sharita Marin and Carlos: Michelle Additionally, you may find many of the answers to your questions in our Guide To Surgery book. This book includes step by step instructions for completing your surgical path and resources for the surgical procedures, medical information, and nutrition/diet information. We would like you to review this book as your providers will refer to information contained in it. For now, please follow the link below to read online version of the book, but next time you have a FACE to FACE visit with one of your providers, please feel free to ask for a hard copy. [email or web address] Once you complete all of the requirements (testing, consultations, diet, etc) from each provider, please call [phone] and select option #5 to initiate insurance approval. Also, if you have any questions along the way, we encourage you to join our weekly Navigation webinar every Monday from 12:00 pm - 1:00 pm. This webinar will give you an opportunity to chat with your patient navigator and learn about your specific program requirements. The link for this webinar is below: [email or web address] Please note scheduling information It is important to keep track of your scheduled appointments to ensure successful completion of our surgical program. Any missed appointments can further delay your pre-surgical work-up. [facility] does offer an opt-in option for getting text message appointment reminders. Please follow the link below if you would like to opt into this service. [email or web address] As part of your surgical work up, SOME or ALL of the following tests may have been ordered. It will be your responsibility to schedule and complete these tests in order to proceed with your bariatric surgery. Please review the following instructions on how to get your testing scheduled. -EKG, Chest X-ray, Ultrasound- An appointment is needed for each of these tests. You may call your local [facility] to get an appointment. - Lab work- No appointment is needed for this, you may complete at any [facility]. These are usually fasting labs, please be sure to fast (only water permitted) for 10-12 hours prior to the test. -Sleep Study- Please call [phone] or [phone] to get this appointment set up. -Sleep Medicine Consult- (Only needed if sleep study confirms sleep apnea) Please call [phone] or [phone] to schedule an appointment. Any testing that is completed outside of [facility] will need faxed to [phone]. We look forward to working with you on this journey, Sangeeta Burrell MD documented in this encounter [facility] 10-30-2023 Note HNO ID: [id number] Author: SANGEETA BURRELL MD Service: ? Author Type: Physician Type: Progress Notes Filed: 10/30/2023 17:03 Note Text: I have communicated my name and active licensure. The patient's identity and physical location were verified at the time of this visit. Either the patient or their legal outbound sales representative has been informed of the risks and benefits of -- and alternatives to -- treatment through a remote evaluation and consents to proceed with the evaluation remotely. CC/HPI: 23 year old lady presents for medical evaluation prior to anticipated medical/surgical treatment of obesity. The patient is interested in surgical weight loss. Goal/motivation for weight loss? Improve health/QOL -has upcoming appointments with team, including with surgeon/Dr. Carpio 10/29 Weight gain history: Age of onset: since she had her daughter 2019 Inciting/contributing factors to weight gain: -since then harder to lose weight What gets in the way of your weight loss? Minimum weight: 178 lbs Maximum weight: current 317 lbs What is your weight loss goal? Previous weight loss attempts: has been prescribed a diet pill-actually gained while taking it; keto-didn't help; exercise 3 days a week; self-directed diets; lower carb Medications (prescription or non-prescription) for weight loss? What has worked the best so far for you in the past? History of Eating disorders? (bulimia, anorexia, binge eating?) Family history of obesity? 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 Can walk for work-see above -Climb 2 flights of stairs without symptoms? can walk up a flight-lives upstairs in an apartment building -heavy housework without symptoms? Previous stress testing/cardiac testing and why? No hasn't needed to Sleep apnea screen: *S-snore? yes *T-feel tired, fatigued, daytime sleepiness? yes O-observed patient stop breathing during sleep? P-does patient have, or being treated for high blood pressure? *B-is BMI >35? yes A-Age >50 N-Neck circumference >15.75 inches? G-Male gender? 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 No past medical history on file. No past surgical history on file. Review of patient's allergies indicates: Parish Inhibitors Cough Sulfa (Sulfonamide * Unknown Ultram (Tramadol Hc* Hives PHYSICAL EXAMINATION: Ht 167.6 cm (5' 6 ) Wt (!) 143.8 kg (317 lb) BMI 51.17 kg/m? General: alert and appropriate, in no distress, well-hydrated, well nourished, happy, smiling, interactive, and pleasant lady Skin: no rash noted Head: normocephalic, no abnormality or lesion noted Eyes: no injection and visual acuity is grossly normal Respiratory: breathing non-labored REVIEW OF SYSTEMS General: As per HPI; no recent fevers/chills/fatigue, or recent hospitalizations. Weight and appetite stable. No recent travel, medication or diet changes. Overall health generally stable. *overall stable HEENT: No history of, or new or out-of-the ordinary, vision, hearing or other ENT problems *no hearing or vision problems-has a astigmatism in her right eye CV: No history of CAD, CVA or other cardiovascular disease or conditions. No new or out of the ordinary chest pain/palpitations/PALOMA/orthopnea /PND/claudication/other cardiac, valvular or vascular issues *No h/o IN, CHF,IN;no cp/palpitations Respiratory: Denies any known h/o lung disease, disorders or conditions. No new or out of the ordinary SOB/cough/other respiratory disease *+asthma/ no cough/sob GI: Denies any known h/o stomach, liver, pancreas, intestinal or colonic disease, Disorders or conditions. No odyno/dysphagia/abdominal pain/N/V/diarrhea/constipation/ bloody stools or other GI issues *no liver/colon or intetesine disease; no h/o GB surgery : B)women: LMP?//rash/discharge/p elvic pain/menstrual problems C) either: No known h/o any chronic kidney; urinary or bladder disease, disorders or conditions; Denies any renal stones/dysuria/hematuria/urgenc y/polyuria/other issues/concerns *NO CKD or bladder issues Heme/onc: No known h/o any bleeding or clotting disorder, (more content not included)... [facility] 10-30-2023 History of Presen t illness Narrative I have communicated my name and active licensure. The patient's identity and physical location were verified at the time of this visit. Either the patient or their legal outbound sales representative has been informed of the risks and benefits of -- and alternatives to -- treatment through a remote evaluation and consents to proceed with the evaluation remotely. CC/HPI: 23 year old lady presents for medical evaluation prior to anticipated medical/surgical treatment of obesity. The patient is interested in surgical weight loss. Goal/motivation for weight loss? Improve health/QOL -has upcoming appointments with team, including with surgeon/Dr. Carpio 10/29 Weight gain history: Age of onset: since she had her daughter 2019 Inciting/contributing factors to weight gain: -since then harder to lose weight What gets in the way of your weight loss? Minimum weight: 178 lbs Maximum weight: current 317 lbs What is your weight loss goal? Previous weight loss attempts: has been prescribed a diet pill-actually gained while taking it; keto-didn't help; exercise 3 days a week; self-directed diets; lower carb Medications (prescription or non-prescription) for weight loss? What has worked the best so far for you in the past? History of Eating disorders? (bulimia, anorexia, binge eating?) Family history of obesity? 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 Can walk for work-see above -Climb 2 flights of stairs without symptoms? can walk up a flight-lives upstairs in an apartment building -heavy housework without symptoms? Previous stress testing/cardiac testing and why? No hasn't needed to Sleep apnea screen: *S-snore? yes *T-feel tired, fatigued, daytime sleepiness? yes O-observed patient stop breathing during sleep? P-does patient have, or being treated for high blood pressure? *B-is BMI >35? yes A-Age >50 N-Neck circumference >15.75 inches? G-Male gender? 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 No past medical history on file. No past surgical history on file. Review of patient's allergies indicates: Parish Inhibitors Cough Sulfa (Sulfonamide * Unknown Ultram (Tramadol Hc* Hives PHYSICAL EXAMINATION: Ht 167.6 cm (5' 6 ) Wt (!) 143.8 kg (317 lb) BMI 51.17 kg/m General: alert and appropriate, in no distress, well-hydrated, well nourished, happy, smiling, interactive, and pleasant lady Skin: no rash noted Head: normocephalic, no abnormality or lesion noted Eyes: no injection and visual acuity is grossly normal Respiratory: breathing non-labored REVIEW OF SYSTEMS General: As per HPI; no recent fevers/chills/fatigue, or recent hospitalizations. Weight and appetite stable. No recent travel, medication or diet changes. Overall health generally stable. *overall stable HEENT: No history of, or new or out-of-the ordinary, vision, hearing or other ENT problems *no hearing or vision problems-has a astigmatism in her right eye CV: No history of CAD, CVA or other cardiovascular disease or conditions. No new or out of the ordinary chest pain/palpitations/PALOMA/orthopnea /PND/claudication/other cardiac, valvular or vascular issues *No h/o IN, CHF,IN;no cp/palpitations Respiratory: Denies any known h/o lung disease, disorders or conditions. No new or out of the ordinary SOB/cough/other respiratory disease *+asthma/ no cough/sob GI: Denies any known h/o stomach, liver, pancreas, intestinal or colonic disease, Disorders or conditions. No odyno/dysphagia/abdominal pain/N/V/diarrhea/constipation/ bloody stools or other GI issues *no liver/colon or intetesine disease; no h/o GB surgery : B)women: LMP?//rash/discharge/p elvic pain/menstrual problems C) either: No known h/o any chronic kidney; urinary or bladder disease, disorders or conditions; Denies any renal stones/dysuria/hematuria/urgenc y/polyuria/other issues/concerns *NO CKD or bladder issues Heme/onc: No known h/o any bleeding or clotting disorder, PE/DVT/anemia, or other blood disorder or condition No h/o cancer/bleeding or clotting problems/unusual bruising or other hematologic/oncologic issues *no h/o cancer or PE/DVT; +anemia and iron deficiency during her Neuro: No new or unusual PASCAL/weakness/dizziness. No paresthesias/temperature sensation changes or disturbances/weakness/h/o CVA or seizures or other neurologic problems *no h/oCVA/sz or other neuro d/o Endo: No known thryoid or DM or other endocrine or metabolic disease, disorders or conditions *No h/o DM or thyroid or other endo issues Musk/Rheum: Denies any h/o disabling or chronic back or other pain; no h/o gout, SLE, RA or other types of arthritis. No new/unusual arthralgias, bone, muscle or joint problems, h/o autoimmune disease, gout or arthritis Autoimmune/Allergy: Skin: No rashes/pruritis/color changes. No other skin problems or issues. Psych: No h/o anxiety/depression or other psychiatric problems Other providers: -PCP -Ob-gyne -health care specialist occasionally (had her surgery on her foot 2014 or so) ASSESSMENT: Reviewed principles of energy metabolism, caloric intake and expenditure, and rationale for treatment program. Also reinforced need for reduced calorie, low fat diet and increased physical Activity. 1)Morbid obesity May be considered at acceptable risk to proceed with bariatric surgery if the following conditions met: baseline ECG normal, or stable/unchanged compared to previous examinations. No further noninvasive cardiac testing needed IF the patient has no intermediate clinical risk factors, (IDDM, renal failure, CHF, CAD, and CVA) and has a normal or adequate functional capacity, and depending on the results of tests, consults (and prior records/test results if requested) -check presurgical labs, CXR, EKG and abd us 2)Sleep disordered breathing: -check sleep study and refer to Sleep medicine Sangeeta Burrell MD I spent a total of 45 minutes on the date of the service which included preparing to see the patient, quat-jp-wbia patient care, completing clinical documentation, obtaining and/or reviewing separately obtained history, counseling and educating the patient/family/caregiver, ordering medications, tests, or procedures, and care coordination (not separately reported). documented in this encounter [facility] 12-27-2022 Evaluation + Plan note Extrac fletcher from: Title:ED Note Author:Ariadna VARGAS, Eric Mejía Lewis e:12/27/22 Foot contusion (S90.30XA: Co ntusion of unspecified foot, initial encounter) Orders: ketorolac, 60 mg = 2 mL, Injection, IntraMuscular, Once, Stop date 12/27/22 0:12:00 EDT, STAT, Start date 12/27/22 0:12:00 EDT, 12/27/22 0:12:00 EDT Surgical Boot XR Foot 3+ Views Left Future Appointments Appointment Date:03/02/2023 09:40:00 AM Scheduled Provider:Paolo Ortiz MD Location:[facility] Appointment Type: New Patient - Adult [facility]06-27[facility]23 Hospital Discharge instructions Patient Education 12/27/2022 00:14:24 Foot Contusion Foot Contusion A foot contusion is a deep bruise to the foot. Contusions are the result of an injury to tissues and muscle fibers under the skin. The injury causes bleeding under the skin. The skin over the contusion may turn blue, purple, or yellow. Minor injuries will cause a painless contusion, but more severecontusions may stay painful and swollen for a few weeks. What are the causes? This condition is usually caused by a hard hit or direct force to your foot, such as having a heavyobject fall on your foot. What are the signs or symptoms? Symptoms of this condition include: Swelling of the foot. Pain and tenderness of the foot. Discoloration of the foot. The area may have redness and then turn blue, purple, or yellow. How is this diagnosed? This condition may be diagnosed based on: Your medical history. A physical exam. In some cases, imaging tests may be done to check for other injuries. These may include: An X-ray to check for broken bones (fractures). CT scan or MRI to check for torn or injured ligaments. How is this treated? In general, the best treatment for a foot contusion is rest, ice, pressure (compression), and elevation. This is often called RICE therapy. An elastic wrap may be recommended to support your foot. Lvjv-gkw-pbrummm anti-inflammatory medicines may also be recommended for pain control. If your swelling or pain is severe, you may be given crutches. Follow these instructions at home: RICE therapy Rest the injured area. Try to avoid standing or walking while your foot is painful. If directed, put ice on the injured area. ?Put ice in a plastic bag. ?Place a towel between your skin and the bag. ?Leave the ice on for 20 minutes, 2 3 times a day. If directed, apply light compression to the injured area using an elastic wrap. Make sure the wrap is not too tight. Remove and reapply the wrap as told by your health care provider. If your toes become numb, cold, or blue, take the wrap off and reapply it more loosely. Raise (elevate) the injured area above the level of your heart while you are sitting or lying down. General instructions Take kiwp-enq-spzpiwx and prescription medicines only as told by your health care provider. Use crutches as told by your health care provider, if this applies. Do not use the injured foot to support your body weight until your health care provider says that you can. Do not use any products that contain nicotine or tobacco, such as cigarettes, e- cigarettes, and chewing tobacco. These can delay healing. If you need help quitting, ask your health care provider. Keep all follow-up visits as told by your health care provider. This is important. Contact a health care provider if: Your symptoms do not improve after several days of treatment. You have redness, swelling, or pain in your foot or toes. You have difficulty moving the injured area. Your swelling or pain is not relieved with medicines. Get help right away if: You have severe pain. Your foot or toes become numb. Your foot or toes become pale or cold. You cannot move your foot or ankle. Your foot is warm to the touch. Summary A foot contusion is a deep bruise to the foot. This condition is usually caused by a hard hit or direct force to your foot. Symptoms include swelling, pain, and discoloration in the injured area. In general, the best treatment for a foot contusion is rest, ice, pressure (compression), and elevation. This information is not intended to replace advice given to you by your health care provider. Make sure you discuss any questions you have with your health care provider. Document Revised: 09/22/2021 Document Reviewed: 09/22/2021 [employer] Patient Education 2022 [employer]. Follow Up Care 12/26/2022 22:46:10 With:XXXX NONE Address: [place] When:12/30/2022 Comments:Call the office of your primary care doctor to arrange for follow-up within the above-stated timeframe. Follow-up with your primary care doctor about this ED visit. You should review your labs, imaging, and diagnoses from this ED visit with your primary care physician. If you were prescribed medications you should discuss possible side-effects and drug interactions with your pharmacist. Call 911 or go to the nearest Emergency Department if you develop any new or worsening symptoms. [facility] Future Appointments Appointment Date:10/23/2023 09:30:00 AM Scheduled Provider:[facility] evaluation + Plan note Future Appointments Appointment Date:11/23/2023 01:00:00 PM Scheduled Provider:CRISTINO VARELA [place] Appointment Type: Video Visit Therapy 60 [facility] evaluation note* Diagnosis Preop testing- Primary Preoperative examination, unspecified Morbid obesity with BMI of 50.0-59.9, adult (HCC) Morbid obesity Snoring Other dyspnea and respiratory abnormality Fatigue, unspecified type [facility] Diagnosis Class 3 severe obesity without serious comorbidity with body mass index (BMI) of 50.0 to 59.9 in adult, unspecified obesity type (HCC)- Primary [facility] Narrative No data available for this section [facility] No data available for this section [facility] progress note No data available for this section [facility] (narrative)* Outpatient Procedure (Routine) - Pending Review Specialty Diagnoses / Procedures Referred By Terrance carter [facility] Diagnoses Preop testing Snoring Fatigue, unspecified type Morbid obesity with BMI of 50.0-59.9, adult (HCC) Procedures ECG COMPLETE ECG ROUTINE ECG W/LEAST 12 LDS W/I&R Sangeeta Burrell MD [address] [place] [address] [place] [address] Referral ID Status Reason Start Date Expiration Date Visits Requested Visits Authorized [id number] Pending Review Auto-Generat ed Referral 10/30/2023 10/29/2024 1 1 * Diagnostic Procedure Only (Routine) - Pending Review Specialty Diagnoses / Procedures Referred By Terrance carter Referred To Contact [facility] Diagnoses Preop testing Snoring Fatigue, unspecified type Morbid obesity with BMI of 50.0-59.9, adult (HCC) Procedures US ABD RIGHT UPPER QUADRANT US ABDOMINAL REAL TIME W/IMAGE LIMITED Sangeeta Burrell MD [address] [place] [address] [facility] [place] [address] Referral ID Status Reason Start Date Expiration Date Visits Requested Visits Authorized [id number] Pending Review Auto-Generat ed Referral 10/30/2023 11/28/2024 1 1 * Consult, Test, Treat (Routine) - Authorized Specialty Diagnoses / Procedures Referred By Contac t Referred To Contact Diagnoses Preop testing Snoring Fatigue, unspecified type Morbid obesity with BMI of 50.0-59.9, adult (HCC) Procedures CONSULT TO SLEEP MEDICINE - ADULT OFFICE/OUTPATIENT [facility] 60 MINUTES Sangeeta Burrell MD [address] [place] [id number] Referral ID Status Reason Start Date Expiration Date Visits Requested Visits Authorized [id number] Authorized PCP Requested Referral 10/30/2023 10/29/2024 1 1 * Diagnostic Procedure Only (Routine) - Pending Review Specialty Diagnoses / Procedures Referred By Terrance carter Referred [facility] Diagnoses Preop testing Snoring Fatigue, unspecified type Morbid obesity with BMI of 50.0-59.9, adult (HCC) Procedures HOME SLEEP APNEA TEST (HSAT) SLEEP STD AIRFLOW HRT RATE&O2 SAT EFFORT UNATT Sangeeta Burrell MD [address] [place] [address] [facility] [address] [place], [place] [id number] Referral ID Status Reason Start Date Expiration Date Visits Requested Visits Authorized [id number] Pending Review Auto-Generat ed Referral 10/30/2023 10/29/2024 1 1 [facility] Summary Purpose Family History No Family History Records FoundNo Family History Records Found No data available for this section No data available for this section No data available for this section No data available for this section No Family History Records FoundNo Family History Records Found Advance Directives No Advanced Directives Records FoundNo Advanced Directives Records FoundNo Advanced Directives Records FoundNo Advanced Directives Records Found Additional Source Comments INFORMATION SOURCE (unrecogn ized section and content) DATE CREATED AUTHOR 07/22/2021 [facility] DATE CREATED AUTHOR AUTHOR'S ORGANIZ ATION 08/26/2021 [facility] DATE CREATED AUTHOR AUTHOR'S ORGANIZ ATION 12/11/2023 [facility] DATE CREATED AUTHOR AUTHOR'S ORGANIZ ATION 12/12/2023 Logan Lelsie [facility] Patient Care team informatio n (unrecognized section and content) 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 Address: Address: [address] [place] [address]- Source Comments (unrecognize d section and content) In the event this informatio n is protected by the Federal Confidentiality of Alcohol and Drug Abuse Patient Records regulations: The Federal rules restrict any use of the information to criminally investigate or prosecute any alcohol or drug abuse patient.[facility] the event this information is protected by the Federal Confidentiality of Alcohol and Drug Abuse Patient Records regulations: The Federal rules restrict any use of the information to criminally investigate or prosecute any alcohol or drug abuse patient.[facility] Hospital[facility] the event this information is protected by the Federal Confidentiality of Alcohol and Drug Abuse Patient Records regulations: The Federal rules restrict any use of the information to criminally investigate or prosecute any alcohol or drug abuse patient.[facility] Reason for Visit (unrecogniz ed section and content) Reason Comments New Patient Reason Comments Obesity Reason Comments Smoking Cessation FOR RECORDS PERTAINING TO PATIENTS WHO ARE OR HAVE BEEN ENROLLED IN A CHEMICAL DEPENDENCY/SUBSTANCEABUSE PROGRAM, SOME INFORMATION MAY BE OMITTED. This clinical summary was aggregated from multiple sources. Caution should be exercised in using it in the provision of clinical care. This summary normalizes information from multiple sources, and as a consequence, information in this document may materially change the coding, format and clinical context of patient data. In addition, data may be omitted in some cases. CLINICAL DECISIONS SHOULD BE BASED ON THE PRIMARY CLINICAL RECORDS. [facility] [employer] provides no warranty or guarantee of the accuracy or completeness of information in this document.
--- NOTE | 2023-12-26 03:05 | XR_ITS ---
The [address] [address] Patient Name: DIONTE ESCAMILLA MRN: [id number] date: 2000 Sex: F Assigned Patient Location: ER Current Patient Location: Accession/Order Number: [id number] Exam Date: 12/26/2023 03:22 Report Date: 12/26/2023 04:58 At the request of: DAMIR MARKER Procedure: XR abdomen min 2V EXAM: XR abdomen min 2V HISTORY: Constipation. COMPARISON: None. TECHNIQUE: 3 AP supine views of the abdomen performed. FINDINGS: Nonobstructive bowel gas pattern with a large amount of stool within the ascending and transverse colon and a small amount of stool within the descending colon. There is no free air. There are no abnormal mass shadows or abnormal pathologic calcifications. The osseous structures are unremarkable. XR/XR abdomen min 2V IMPRESSION: Nonobstructive bowel gas pattern with a large amount of stool within the ascending and transverse colon and a small amount of stool within the descending colon. Electronically authenticated by: LISA BRADSHAW Date: 12/26/2023 04:58
--- NOTE | 2023-12-26 03:06 | ED.ABDPAIN1 ---
HPI - Abdominal Pain General Chief Complaint: GI Bleed Stated Complaint: blood in stool Time Seen by Provider: 12/26/23 02:44 Mode of arrival: walk-in History of Present Illness HPI narrative: This 23-year-old female presents for evaluation of rectal pain and the sensation that she is sitting on a large ball in her rectum. She states she feels constipated and has been intermittently constipated for the past 4 years. 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 Tonight she was trying to have a bowel movement was only able to pass a small amount of stool and there was some bright red blood on the toilet paper. She also has her menstrual period. She denies any abdominal pain. She has not had any nausea or vomiting. Related Data Home Medications ?Medication ?Instructions ?Recorded ?Confirmed bupropion HCl 150 mg 24 hr tablet, 150 mg PO DAILY 11/12/23 12/26/23 extended release Allergies Allergy/AdvReac Type Severity Reaction Status Date / Time Sulfa (Sulfonamide Allergy Hives Verified 12/26/23 02:54 Antibiotics) Review of Systems ROS Status of ROS 10 or more systems reviewed and unremarkable except as noted in history and below Exam Narrative Exam Narrative: Vital signs and Nursing Notes reviewed: She is afebrile, she is mildly tachycardic with a pulse of 103 and blood pressure is elevated at 146/103, she is not hypoxic with pulse ox of 98% on room air General: Obese female resting comfortably on the stretcher, she moves easily about the stretcher, no respiratory distress HEENT: Normocephalic atraumatic, mucous membranes are moist and pink, eyes are clear, normal conjunctiva, vision is grossly intact Neck: Supple, no meningeal signs, no anterior or posterior cervical lymphadenopathy Chest: Lungs are clear to auscultation with good air entry, there is no wheezing rhonchi or rales appreciated no accessory muscle use, patient is speaking in complete sentences-no chest wall tenderness to palpation CVS: Regular rate and rhythm S1-S2, no murmurs rubs or gallops, pulses are brisk and equal bilaterally ABD: Obese, soft, nondistended, nontender, rectal exam was performed after verbal consent was given by the patient. There is no notable hemorrhoids or rectal fissures, there is moderate amount of hard stool in the rectal vault, no blood appreciated Extremities: Moving all extremities, no lower extremity tenderness or swelling noted, negative Homans' sign, pulses are brisk and equal bilaterally Skin: Normal in appearance without rash,pallor, petechiae or purpura Neuro: No focal deficits Constitutional Vital Signs, click to edit/add: Last Vital Signs Temp 98.7 F 12/26/23 02:42 Pulse 103 H 12/26/23 02:42 Resp 18 12/26/23 02:42 BP 146/103 H 12/26/23 02:42 Pulse Ox 98 12/26/23 02:42 O2 Del Method Room Air 12/26/23 02:42 Course Vital Signs Vital signs: Vital Signs Temperature 98.7 F 12/26/23 02:42 Pulse Rate 103 H 12/26/23 02:42 Respiratory Rate 18 12/26/23 02:42 Blood Pressure 146/103 H 12/26/23 02:42 Pulse Oximetry 98 12/26/23 02:42 Oxygen Delivery Method Room Air 12/26/23 02:42 Temperature 98.7 F 12/26/23 02:42 Pulse Rate 103 H 12/26/23 02:42 Respiratory Rate 18 12/26/23 02:42 Blood Pressure 146/103 H 12/26/23 02:42 Pulse Oximetry 98 12/26/23 02:42 Oxygen Delivery Method Room Air 12/26/23 02:42 MDM - Abdominal Pain MDM Narrative Medical decision making narrative: This 23-year-old female presents for evaluation of pain in her rectum and feels like she is sitting on a hard ball as well as bleeding after having a bowel movement. She has no abdominal pain. She uses fiber bars as supplements due to a history of constipation for the past 4 years. The patient's physical exam is benign. Her abdomen is soft. There is a small amount of hard stool in her rectum. I did not appreciate any fissures or hemorrhoids on her exam and there was no blood on my finger. She was medicated with a Fleet enema and had a bowel movement again with a small amount of bright red blood on the toilet paper. She states she is feeling better but states she still feels like she has to have a larger bowel movement. X-ray of the abdomen was ordered and shows a large amount of stool without any obstructive signs. She requests a note for work will be discharged home with prescription for Dulcolax suppositories and Colace to use as needed for ongoing constipation. Discharge Plan Discharge Stand Alone Forms: Portal Instructions Chief Complaint: GI Bleed Clinical Impression: Constipation, Rectal bleeding Patient Disposition: Home, Self-Care Time of Disposition Decision: 04:03 Condition: Good Prescriptions / Home Meds: No Action bupropion HCl 150 mg tablet extended release 24 hr 150 mg PO DAILY Print Language: Guamanian Instructions: Constipation (ED), Rectal Bleeding (ED), Fleet Enema (ED) Referrals: PAOLO ORTIZ [Primary Care Provider] - 1 week Discharge Date/Time: 12/26/23 04:15
--- NOTE | 2023-12-26 03:21 | PC.NURSE ---
patient states she believes shes constipated. she has been having a hard time passing bowel movements. tonight when she wiped she saw blood on toilet paper, this was after straining to have a bowel movement. states its uncomfortable to sit upright due to it feeling like shes sitting on something and rectal pressure. denies abdominal pains
== END 2023-12-26 04:15 | disposition home or self-care (01) ==
PROVIDERS: Emergency Provider Emergency Medicine; PCP Family Medicine
DX: K62.5 Hemorrhage of anus and rectum (principal); K59.00 Constipation, unspecified; E66.9 Obesity, unspecified; Z68.42 Body mass index [BMI] 45.0-49.9, adult
CPT/HCPCS: 74019; 99283

== ENCOUNTER 2024-06-05 15:37 | Emergency (ER) | payer OTHER, SELFPAY ==
[2024-06-05 15:49] VITALS: BP 156/110; PULSE 83; TEMP 36.7; O2SAT 97; BMI 53.3
[2024-06-05 16:11] LABS: Internal Control Within Normal Limits; Strep A Antigen Screen Negative
[2024-06-05 16:17] LABS: Influenza Virus A Antigen Negative; Influenza Virus B Antigen Negative; Internal Control Within Normal Limits; SARS-CoV-2 Ag NEGATIVE (NEGATIVE)
--- NOTE | 2024-06-05 16:35 | ED.URI1 ---
HPI - URI/Sore Throat General Chief Complaint: Upper Respiratory Infection Stated Complaint: Upper Respiratory Infection Time Seen by Provider: 06/05/24 16:08 Source: patient Limitations: no limitations History of Present Illness HPI Narrative: The patient is a 24-year-old female who presents to the emergency department secondary to a cough and sore throat. Her symptoms have been going on for 8 days. Patient states that she has a sore throat and lost her voice and she actually just got it back for couple days and now it is getting bad again. She also has a cough with productive green phlegm. Patient states that she has not had any fever or chills. No known sick contacts or recent travel. She states that overall I just feel like garbage . Patient has been taken DayQuil and NyQuil. She has been using rapid Tylenol for her throat discomfort. Patient states that nothing is really helping her symptoms and she feels like she is getting much worse. Patient is denying any nausea or vomiting. No diarrhea or constipation. No abdominal pain. No rashes. Unknown what makes her symptoms worse. Nothing makes it better. The patient's discomfort overall is moderate in sensation swallowing and coughing makes it worse. Nothing makes it better. Patient symptoms have been so severe she has actually missed work. Associated symptoms: Reports denies other symptoms Related Data Home Medications ?Medication ?Instructions ?Recorded ?Confirmed bupropion HCl 150 mg 24 hr tablet, 150 mg PO DAILY 11/12/23 12/26/23 extended release Previous Rx's ?Medication ?Instructions ?Recorded benzonatate 200 mg capsule 200 mg PO TID PRN cough #10 caps 06/05/24 methylprednisolone 4 mg tablets in 4 mg PO DAILY #21 ea 06/05/24 a dose pack (Medrol (Anish)) Allergies Allergy/AdvReac Type Severity Reaction Status Date / Time Sulfa (Sulfonamide Allergy Hives Verified 06/05/24 15:53 Antibiotics) Review of Systems ROS Narrative 10 Systems were reviewed, and unless noted in the HPI, all other systems are reviewed, unremarkable, or noncontributory. [facility] Social History Little interest or pleasure in doing things: not at all Feeling down, depressed, or hopeless: not at all Exam Narrative Exam Narrative: Prior to examining the patient, I have washed with hospital approved and provided Antiseptic Hand [employer] Manager and have also applied gloves.? Prior to touching the patient, I asked for consent to examine the patient.? General: Alert and oriented, well nourished, mild distress. Increased BMI Eye: PERRL, EOMI, normal conjunctiva. HENT: Normocephalic, normal hearing, moist oral mucosa, no scleral icterus, no sinus tenderness. Patient does not have any posterior oropharyngeal edema, erythema, or exudate. Tympanic membranes are not red, dull, bulging. Neck: Supple, non-tender, no carotid bruits, no JVD, no lymphadenopathy. No evidence of meningeal signs. Lungs: Clear to auscultation and percussion, non-labored respiration. Heart: Normal rate, regular rhythm, no murmur, gallop or edema. Abdomen: Soft, non-tender, non-distended, normal bowel sounds, no masses. Obese Musculoskeletal: Normal range of motion and strength, no tenderness or swelling. Skin: Skin is warm, dry and pink, no rashes or lesions. Neurologic: Awake, alert, and oriented X3, CN II-XII intact. Psychiatric: Cooperative, appropriate mood and affect.? Following the conclusion of the examination, I have washed my hands thoroughly after removing examination gloves. Constitutional Vital Signs, click to edit/add: Last Vital Signs Temp 98.1 F 06/05/24 15:49 Pulse 83 06/05/24 15:49 Resp 18 06/05/24 15:49 BP 156/110 H 06/05/24 15:49 Pulse Ox 97 06/05/24 15:49 O2 Del Method Room Air 06/05/24 15:49 Course Course Hospital Course: I had an opportunity to see the patient. After an unremarkable physical exam and negative viral swabs the patient likely has a typical viral syndrome. The patient can peanut picker her prescription at the pharmacy. The patient is nontoxic and in no acute distress and does not require any urgent intervention in the emergency department at this time. Vital Signs Vital signs: Vital Signs Temperature 98.1 F 06/05/24 15:49 Pulse Rate 83 06/05/24 15:49 Respiratory Rate 18 06/05/24 15:49 Blood Pressure 156/110 H 06/05/24 15:49 Pulse Oximetry 97 06/05/24 15:49 Oxygen Delivery Method Room Air 06/05/24 15:49 Temperature 98.1 F 06/05/24 15:49 Pulse Rate 83 06/05/24 15:49 Respiratory Rate 18 06/05/24 15:49 Blood Pressure 156/110 H 06/05/24 15:49 Pulse Oximetry 97 06/05/24 15:49 Oxygen Delivery Method Room Air 06/05/24 15:49 MDM - URI/Sore Throat Differential Diagnosis Differential diagnosis: Likely upper respiratory infection, croup, otitis media, sinusitis, viral infection, bronchitis, influenza and pharyngitis Medical Records Attestation: I reviewed the patient's medical records. Lab Data Attestation: I reviewed the patient's lab results. Labs: Lab Results 06/05/24 Range/Units 16:00 Influenza Type A Ag Negative Influenza Type B Ag Negative SARS-CoV-2 Ag (CV2AG) Negative (NEGATIVE) Streptococcus Screen Negative Discharge Plan Discharge Chief Complaint: Upper Respiratory Infection Clinical Impression: Acute upper respiratory infection Patient Disposition: Home, Self-Care Time of Disposition Decision: 16:42 Condition: Good Prescriptions / Home Meds: New methylprednisolone [Medrol (Anish)] 4 mg tablets,dose pack 4 mg PO DAILY Qty: 21 0RF benzonatate 200 mg capsule 200 mg PO TID PRN (Reason: cough) Qty: 10 0RF No Action bupropion HCl 150 mg tablet extended release 24 hr 150 mg PO DAILY Print Language: Ethiopian Instructions: Upper Respiratory Infection (ED) Referrals: PAOLO ORTIZ [Primary Care Provider] - 1 week
== END 2024-06-05 17:28 | disposition home or self-care (01) ==
PROVIDERS: Emergency Medicine; Emergency Provider Emergency Medicine; PCP Family Medicine
DX: J06.9 Acute upper respiratory infection, unspecified (principal); Z20.822 Contact with and (suspected) exposure to COVID-19
CPT/HCPCS: 87070; 87804; 87811; 87880; 99285

== ENCOUNTER 2024-06-14 17:55 | Emergency (ER) | payer OTHER, SELFPAY ==
[2024-06-14 17:58] VITALS: BP 150/100; PULSE 70; TEMP 36.6; O2SAT 96; BMI 53.3
--- OUTSIDE RECORDS SUMMARY | 2024-06-14 18:01 | XMS_ITS | CCD ---
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 Name Role Phone DR CHAD STRONG Primary Care Unavailable YANELIS, DR HOLLINS Attending Unavailable YANELIS, DR HOLLINS Consulting Unavailable YANELIS, DR HOLLINS Admitting Unavailable LIGIA, DR CHAD Roberts Primary Care Unavailable LIGIA, DR CHAD Roberts Admitting Unavailable LIGIA, DR CHAD Roberts Attending Unavailable LIGIA, DR CHAD Roberts Consulting Unavailable NONE, XXXX Primary Care Physician UnavailPaolo Ash Primary Care Physician Unavailable Primary Care Provider UnavailPaolo Villavicencio MD Primary Care Provider SANGEETA BURRELL Attending Unavailable HUY ESCOTO Attending Unavailable PAOLO ORTIZ Primary Care Unavailable SANGEETA BURRELL Referring Unavailable PAOLO ORTIZ Primary Care Unavailable SHERYL LÓPEZ Attending Unavailable PAOLO ORTIZ Primary Care Unavailable RICK CARPIO Attending Unavailable Paolo Ortiz Attending Unavailable Paolo Ortiz Attending Unavailable Paolo Ortiz Attending Unavailable Paolo Ortiz Attending Unavailable CRISTINO DIAZ Attending Unavailable CRISTINO DIAZ Attending Unavailable CRISTINO DIAZ Attending Unavailable CRISTINO DIAZ Attending Unavailable CRISTINO DIAZ Attending Unavailable CRISTINO DIAZ Attending Unavailable CRISTINO DIAZ Attending Unavailable Paolo Ortiz Attending Unavailable Paolo Ortiz Attending Unavailable Yolanda Luna Attending Unavailable Yolanda Luna Attending Unavailable Paolo Ortiz Attending Unavailable Paolo Ortiz Attending Unavailable Allergies Allergy Classification Reported Allergen(s) Allergy Type Date of Onset Reaction(s) Facility (1 source) Sulfonamides (Antibiotic) Drug allergy (disorder) 07-12-2013 [facility] Repository (6 sources) Sulfacetamide; Translations: [sodium sulfacetamide ophthalmic] Drug Allergy Rash [facility] Medications Current Medications Medication Drug Class(es) Dates Sig (Normalized) Sig (Original) Albuterol (Eqv-ProAir HFA) 90 mcg/inh inhalation aerosol (4 sources) Start: 08-18-2023 Albuterol (Eqv-ProAir HFA) 90 mcg/inh inhalation aerosol See Instructions, 8.5 EA, Refill(s) 0, INHALE 2 PUFFS BY MOUTH EVERY 6 HOURS, [facility], 168, cm, 07/27/23 7:24:00 EST, Height/Length Dosing, 139.9, kg, 07/27/23 7:24:00 EST, Weight Dosing Start Date: 08/18/23 Status: Ordered 24 hr buPROPion hydrochloride 300 mg extended release oral tablet (4 sources) Aminoketone Start: 09-11-2023 take 1 tablet by mouth every twenty-four hours buPROPion 300 mg/24 hours ER Tab 300 mg = 1 tab(s), Oral, q24hr, # 90 tab(s), Refills(s) 1, Pharmacy: [id number], 168, cm, 09/11/23 8:16:00 EDT, Height/Length [...] [Morbid obesity with BMI of 50.0-59.9, adult ([facility])] Onset: 11-15-2023 Chronic Other nutritional; endocrine; and metabolic disorders (1 source) Body mass index (BMI) 50.0-59.9, adult; Translations: [Morbid obesity with BMI of 50.0-59.9, adult (HCC)] Onset: 11-15-2023 Chronic Other screening for suspected [...] Name Value Interpretation Reference Range Facil ity Ambulatory Visit Summaryon 1 08-04-2023 Ambulatory Visit Summary Ambulatory Visit Summary DIONTE ESCAMILLA :2000 Visit Date:06/03/2024 Ambulatory Visit Instructions Your Diagnosis Anxiety Depression Body mass index [BMI] 50.0-59.9, adult, Body mass index [BMI] 50.0-59.9, adult Morbid obesity with BMI of 50.0-59.9, adult Former smoker Your Care Team Attending Physician - Paolo Ortiz MD Primary Care Physician - Paolo Ortiz MD This Is Your Medications List albuterol (Albuterol (Eqv-ProAir HFA) 90 mcg/inh inhalation aerosol) escitalopram (Lexapro 20 mg Tab) Procedures Performed Surgery. Discharge Vitals Temperature (Temporal Artery) 36.4 ???C Heart Rate (Peripheral) 74 Respiratory Rate 16 Blood Pressure 134/80 Height 168 cm Height 66 in Weight 150.0 kg Weight 330.693 lb BMI 53.15 What to do next Scheduled Follow-Up Appointments Monday 5:15 PM EST With: Paolo Ortiz MD Where: [place] [id number]- Medications What How Much When Instructions Unchanged albuterol (Albuterol (Eqv-ProAir HFA) 90 mcg/ inh inhalation aerosol) See instructions INHALE 2 PUFFS BY MOUTH EVERY 6 HOURS Unchanged escitalopram (Lexapro 20 mg Tab) 1 Tablets By Mouth Every day Allergies Sulfacetamide Sodium (Rash) Problems Ongoing - Any problem that you are currently receiving treatment for. Acute URI Allergic rhinitis Anxiety Asthma Depression Excessive dietary caloric intake GERD (gastroesophageal reflux disease) Migraines Patient Survey You may receive a survey via text or e-mail asking about your office visit. Please share your experience with us by completing your survey. We appreciate your feedback and thank you for choosing us for your care. Normal [facility] Medicine Office/Clini c Noteon 06-03-2024 Family Medicine Office/Clinic Note Family Medicine Office/Clinic Note HPI Staff Dionte is a 24 year old female presenting for one month follow up mood Follow up for Mental Status: Medication adherence- Yes, takes medication as prescribed Medication refill needed: _ Suicidal thoughts-Not at this time Most recent LORI: 11 Most recent PHQ9: 15 questions/concerns: needs her lexapro and albuterol inhaler refilled Just got over being sick, just got her voice back History of Present Illness As above. Please see assessment and plan for more history. Review of Systems PHQ Score Initial Depression Screen Score: 5 SCORE Detailed Depression Screen Score: 9 Total Depression Screen Score: 14 Physical Exam Vitals & Measurements T: 36.4 ???C(Temporal Artery) HR: 74(Peripheral) RR: 16 BP: 134/80 SpO2: 99% HT: 66 in HT: 168 cm WT: 150.0 kg WT: 330.693 lb BMI: 53.15 General: alert, no acute distress ENMT: oral mucosa moist, Cardiovascular: normal peripheral perfusion Respiratory: respirations non labored Extremities: no deformity, no trauma Neurological: oriented x 4, LOC appropriate for age, CN II-XII intact, motor strength equal & normal bilaterally, speech normal Assessment/Plan Taking this all in I believe the patient may need a mixture of antidepressants to help get her to a better score. At this time this is probably more than I can do. Patient understands. Gave the number to industrial organizational psychologist that may be able to help with this. Patient states that she is doing better despite having the panic attack and losing her job. But still I am concerned that she is not optimized. 1. Anxiety (F41.9: Anxiety disorder, unspecified) Pt states despite her scores she is feeling better. She did have a panic attack which cost her her job. But she is seeing bariatric for possible surgery to help. Ordered: Body Mass Index (BMI) documented 3008F Current tobacco non-user 1036F Depression Screening Positive 3354F Most recent diastolic blood pressure 80-89 mm Hg 3079F Systolic BP 130-139 mm Hg (Most Recent) 3075F 2. Depression (F32.A: Depression, unspecified) As above Ordered: Body Mass Index (BMI) documented 3008F Current tobacco non-user 1036F Depression Screening Positive 3354F Most recent diastolic blood pressure 80-89 mm Hg 3079F Systolic BP 130-139 mm Hg (Most Recent) 3075F 3. Excessive dietary caloric intake (R63.2: Polyphagia) Seeing bariatric surgery. 4. Body mass index [BMI] 50.0-59.9, adult, (Z68.43: Body mass index [BMI] 50.0-59.9, adult)Body mass index [BMI] 50.0-59.9, adult BMI education added. Ordered: Body Mass Index (BMI) documented 3008F Current tobacco non-user 1036F Depression Screening Positive 3354F Most recent diastolic blood pressure 80-89 mm Hg 3079F Systolic BP 130-139 mm Hg (Most Recent) 3075F 5. Morbid obesity with BMI of 50.0-59.9, adult (E66.01: Morbid (severe) obesity due to excess calories) Ordered: Body Mass Index (BMI) documented 3008F Current tobacco non-user 1036F Depression Screening Positive 3354F Most recent diastolic blood pressure 80-89 mm Hg 3079F Systolic BP 130-139 mm Hg (Most Recent) 3075F 6. Former smoker (Z87.891: Personal history of nicotine dependence) Ordered: Body Mass Index (BMI) documented 3008F Current tobacco non-user 1036F Depression Screening Positive 3354F Most recent diastolic blood pressure 80-89 mm Hg 3079F Systolic BP 130-139 mm Hg (Most Recent) 3075F Follow-up No qualifying data available Patient Education BMI for Adults Problem List/Past Medical History Ongoing Acute URI Allergic rhinitis Anxiety Asthma Depression Excessive dietary caloric intake GERD (gastroesophageal reflux disease) Migraines Historical No qualifying data Procedure/Surgical History Surgery. Medications Albuterol (Eqv-ProAir HFA) 90 mcg/inh inhalation aerosol, See Instructions Lexapro 20 mg Tab, 20 mg= 1 tab(s), Oral, Daily Allergies Sulfacetamide Sodium (Rash) Social History Alcohol - Denies Alcohol Use, 12/26/2022 Current. Beer. 1-2 times per year., 05/06/2024 Substance Abuse - Denies Substance Abuse, 12/26/2022 Never., 05/06/2024 Tobacco - Denies Tobacco Use, 12/26/2022 Former smoker, quit more than 30 days ago Tobacco Use:., 06/03/2024 Family History Diabetes mellitus type 1: Grandparent. Primary malignant neoplasm of female breast: Grandparent. Normal [facility] Comment on above: Result Comment: Elec tronically Signed By: Derik PRADHAN, Paolo Macario.br\Date and Time Signed: 06/03/24 16:05 EST Family Medicine Office/Clini c Noteon 05-06-2024 Family Medicine Office/Clinic Note Family Medicine Office/Clinic Note Chief Complaint Difficulty with social interactions and increased anxiety after recent move. HPI Staff Dionte is a 24 year old female presenting for 6 week follow up mood SOLOMON added lexapro 10mg, referred back to bariatric surgeon, started with this and missed some appts when she went to call back no answer and couldn't get any calls back so she doesn't know how to get back on track Follow up for Mental Status: Medication adherence- Yes, takes medication as prescribed Medication refill needed: yes Suicidal thoughts-Not at this time Most recent LORI: 5 Most recent PHQ9: 14 questions/concerns: will need lexapro refilled but wants to discuss with you as it hasn't done much and she feels the same History of Present Illness The patient is a 24-year-old female presenting with anxiety and associated social difficulties. The patient reports a longstanding history of anxiety, exacerbated by social situations, which leads to feelings of panic and an inability to communicate effectively with others. Difficulties in social environments began prior to the visit and have persisted despite medication, particularly affecting her ability to interact in work settings. The patient mentions difficulties since starting a job, noting no improvement with Lexapro, except for increased motivation in domestic tasks. Additionally, she reports increased anxiety following a residential change a month ago, with a decrease in engagement and comfort since the move. The history of depression and previous attempts to manage it, including the use of Lexapro, is notable, with the patient indicating no significant alleviation of depressive symptoms. The patient discusses her inactivity socially and possible isolative behavior, particularly following the move. Previous history includes morbid obesity and poor dietary intake, which could contribute to both physical and psychological health challenges. Review of Systems PHQ Score Initial Depression Screen Score: 3 SCORE Detailed Depression Screen Score: 11 Total Depression Screen Score: 14 - Psychological: Reports anxiety and social withdrawal. Denies effective social interaction outside personal environments. - Behavior/Activities: Reports increased solace in video games for stress management. Physical Exam Vitals & Measurements T: 36.9 ???C(Oral) HR: 72(Peripheral) RR: 18 BP: 132/80 SpO2: 98% HT: 66 in HT: 168 cm WT: 150.3 kg WT: 330.66 lb BMI: 53.25 General: alert, no acute distress ENMT: oral mucosa moist Cardiovascular: Regular rate and rhythm, normal peripheral perfusion Respiratory: Lungs clear to auscultation, respirations non labored Extremities: no deformity, no trauma Neurological: oriented x 4, level of consciousness appropriate for age, CN II-XII intact, motor strength equal & normal bilaterally, speech normal Abdomen: Soft, Non-tender, Non-distended, + Bowel sounds Assessment/Plan 1. Anxiety (F41.9: Anxiety disorder, unspecified) The patient???s anxiety is a primary concern, particularly in social situations. Lexapro dosage is considered for adjustment to address symptoms effectively, with a focus on achieving consistent therapeutic levels for mood stabilization. Emphasize non-pharmacological therapies such as behavioral activation through social interactions in supportive, low-pressure environments. Encouraged gradual exposure and practicing social interactions in virtual settings or group activities related to personal interests, which can facilitate social skills development. Ordered: Body Mass Index (BMI) documented 3008F Current tobacco non-user 1036F Depression Screening Positive 3354F Most recent diastolic blood pressure 80-89 mm Hg 3079F Systolic BP 130-139 mm Hg (Most Recent) 3075F 2. Depression (F32.A: Depression, unspecified) The manifest difficulties with social functions and involvement are indicative of ongoing depressive symptoms. Adjust Lexapro dosage and consider additional or alternative SSRIs or cognitive behavioral therapy to bolster emotional resilience. Monitor depressive indicators closely, especially after the recent move, and reinforce strategies for emotional regulation and community or counseling-supported interaction opportunities. Ordered: Body Mass Index (BMI) documented 3008F Current tobacco non-user 1036F Depression Screening Positive 3354F Most recent diastolic blood pressure 80-89 mm Hg 3079F Systolic BP 130-139 mm Hg (Most Recent) 3075F 3. Excessive dietary caloric intake (R63.2: Polyphagia) Address the significant dietary intake's physical and psychosocial health impacts. Recommendation of nutritional assessment and close monitoring, with potential referral for specialized dietary management. Reinforce the transition to health-promoting caloric balance by integrating physical activity routines into daily life to positively impact weight and emotional well-being. Ordered: Body Mass Index (BMI) documented 300 (more content not included)... Normal [facility] Comment on above: Result Comment: Elec tronically Signed By: Derik PRADHAN, Paolo Betlran\.br\Date and Time Signed: 05/06/24 16:59 EST Family Medicine Office/Clini c Noteon 03-18-2024 Family Medicine Office/Clinic Note Family Medicine Office/Clinic Note HPI Staff Corinne is a 24 year old female presenting for paperwork update for straddle buggy operator animal Dr Strong was the last to fill this out, she's had her emotional support animal for a while Forgot the paperwork at home will need to drop off LORI: 11 phq9: 9 History of Present Illness Patient is here for follow-up. Patient has not been taking her medication. Patient wants to try something else. Patient has had a straddle buggy operator animal for years and needs paperwork for this again. Patient also wants to get bariatric surgery and needs a further referral. Review of Systems PHQ Score Initial Depression Screen Score: 2 SCORE Physical Exam Vitals & Measurements T: 36.6 ?C(Temporal Artery) HR: 78(Peripheral) RR: 16 BP: 136/82 SpO2: 99% HT: 66 in HT: 168 cm WT: 149.7 kg WT: 329.34 lb BMI: 53.04 General: alert, no acute distress ENMT: oral mucosa moist, Cardiovascular: regular rate and rhythm, normal peripheral perfusion Respiratory: Lungs CTA, respirations non labored Extremities: no deformity, no trauma Neurological: oriented x 4, LOC appropriate for age, CN II-XII intact, motor strength equal & normal bilaterally, speech normal Abdomen: Soft, Nontender, Non-distended, + BS Assessment/Plan 1. Depression (F32.A: Depression, unspecified) Will try Lexapro 10. Will have the patient follow-up in 6 weeks. Ordered: [facility] External Ambulatory Referral 2. Anxiety (F41.9: Anxiety disorder, unspecified) As above Ordered: [facility] External Ambulatory Referral 3. Excessive dietary caloric intake (R63.2: Polyphagia) Will refer back to bariatric surgery. Ordered: [facility] External Ambulatory Referral 4. BMI 50.0-59.9, adult (Z68.43: Body mass index [BMI] 50.0-59.9, adult) BMI education added Ordered: Body Mass Index (BMI) documented 3008F Current tobacco smoker 1034F Depression Screening Negative 3352F [facility] External Ambulatory Referral Most recent diastolic blood pressure 80-89 mm Hg 3079F Systolic BP 130-139 mm Hg (Most Recent) 3075F 5. 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) Please stop vaping Ordered: Body Mass Index (BMI) documented 3008F Current tobacco smoker 1034F Depression Screening Negative 3352F Most recent diastolic blood pressure 80-89 mm Hg 3079F Systolic BP 130-139 mm Hg (Most Recent) 3075F Orders: buPROPion, 300 mg = 1 tab(s), Oral, q24hr, # 90 tab(s), Refills(s) 1, [id number], 168, cm, 09/11/23 8:16:00 EDT, Height/Length Dosing, 142.5, kg, 09/11/23 8:16:00 EDT, Weight Dosing escitalopram, 10 mg = 1 tab(s), Oral, Daily, # 90 tab(s), Refills(s) 0, Pharmacy: [facility][id number], 168, cm, 03/18/24 17:33:00 EDT, Height/Length Dosing, 149.7, kg, 03/18/24 17:33:00 EDT, Weight Dosing Follow-up No qualifying data available Patient Education BMI for Adults Problem List/Past Medical History Ongoing Acute URI Allergic rhinitis Anxiety Asthma Depression Excessive dietary caloric intake GERD (gastroesophageal reflux disease) Migraines Historical No qualifying data Procedure/Surgical History Surgery. Medications Albuterol (Eqv-ProAir HFA) 90 mcg/inh inhalation aerosol, See Instructions Lexapro 10 mg Tab, 10 mg= 1 tab(s), Oral, Daily Allergies Sulfacetamide Sodium (Rash) Social History Alcohol - Denies Alcohol Use, 12/26/2022 Substance Abuse - Denies Substance Abuse, 12/26/2022 Tobacco - Denies Tobacco Use, 12/26/2022 Former smoker, quit more than 30 days ago Tobacco Use:. Never, Current vaping or e-cigarette use Smokeless Tobacco Use:. Vaping, 03/18/2024 Family History Diabetes mellitus type 1: Grandparent. Primary malignant neoplasm of female breast: Grandparent. 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 Patient remains uncomfortable with her current psychotropic medication, but her PCP recommended that she have a psychiatric evaluation. Patient has decided to undergo gastric bypass surgery, and needs to complete a sleep apnea test, blood work, and remain alcohol and nicotine free. 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 We began reviewing her Timeline of Significant Life Events. She talked about growing up with her mother who had significant drug issues (heroin and meth). Her mother currently has a warrant out for her arrest due to child support. 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 TREATMENT PLAN: GOAL: Patient [...] 1 tab(s), (more content not included)... Normal [facility] Comment on above: Result Comment: Elec tronically Signed By: EMILY [facility]lsie, CRISTINO\.gisel\Date and Time Signed: 12/12/23 12:42 EDT CNPNon 12-11-2023 CNPN Telephone (WIQ) DIONTE ESCAMILLA ([id number]) 2000 F Date Time Provider Department 12/11/23 MADDIE DSOUZA WIQ During your visit today, we recorded the following information about you: [facility] 12/11/2023 8:08 AM Signed Smoking Cessation Navigation Outcome of contact: Left Message Comments: A voicemail has been left for this patient regarding Tobacco Cessation support options. If this patient has any further questions they can email us at [email or web address] or call us at [phone]. eHealth Clinical Informatics Specialist/Smoking Cessation Navigator: [facility] Allergies As of Date: 12/11/2023 (Not on File) Date Reviewed: 12/07/2023 Reviewed by: Huy Escoto PSYD - Fully Assessed Reason for Visit: Smoking Cessation [1387] Problem List As Of Date: 12/11/2023 (None) Encounter Status:Closed by MADDIE DSOUZA on 12/11/23 Normal [facility] ED Note-Physicianon 11-16-19 ED Note-Physician [id number]# 1.00TIFF Normal [facility] RAD - MISCon 11-16-2023 RAD - MISC [id number] #1.00TIFF [facility] Video Visit - Telehealtho n 11-06-2023 Video [...] Thoughts/Feelings Relationship Issues/Problems Work Issues/Problems Health issues carbon grinder experiences NOTES/SUMMARY OF SESSION: Patient remains uncomfortable with her current psychotropic medication, but has not yet met with her PCP about possible changes. Patient did have a medical appointment about gastric bypass surgery, and she is considering her options. 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 Reviewed Fair Fighting Rules and out with [...] GERD (ga (more content not included)... Normal [facility] Comment on above: Result Comment: Elec tronically Signed By: EMILY [facility], CRISTINO\.br\Date and Time Signed: 11/06/23 15:03 EDT Video [...] TELEHEALTH Psych Diagnostic Eval W/O Med Mgmt 61136 Assessment and Plan No qualifying data available. 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 Reviewed relevant social history information. When asked [...] Surgery. Me (more content not included)... Normal [facility] Comment on above: Result Comment: Elec tronically Signed By: EMILY GALVAN, CRISTINO\.gisel\Date and Time Signed: 11/01/23 12:39 EDT Video [...] No qualifying data available. Therapeutic Survey Comments: Judaism Needs No qualifying data available. Judaism/Spiritual/ Cultural Comments: Financial Situation No qualifying data [...] of Anxiety: (Most responses were Sometimes/Often) 1. [place] concerned about things other people consider unimportant. 2. Have difficulty controlling worries. 3. Feel restless or on-edge. 4. Feel irritable, most of the time. 5. Feel extremely tense or unable to relax. 8. [place] fearful of things, or situations (animals, heights, storms, insects, etc.). 12. Make unusual movements for no apparent reason (blinking, head jerking, etc.) 13. Make unusual sounds/noises (coughing, throat clearing, sniffling, grunting, etc.) 14. Try to avoid contact with strangers; abnormally shy. 15. Feel excessively shy in social situations. 16. When put in uncomfortable social situations, I fr (more content not included)... Normal [facility] Comment on above: Result Comment: Elec [...] AM EDT With: Paolo Ortiz MD Where: [facility] [place] Normal [facility] Ambulatory Visit Summaryon 0 09-11-2023 Ambulatory [...] Follow-Up Appointments Monday 9:30 AM EDT With: Derik PRADHAN, Paolo Beltran Where: [facility] Medicine [place] Invalid Interpretation Code Class 3 obesity [facility] Office/Clini c Noteon 09-11-2023 Family Medicine Office/Clinic [...] refer to Bariatric surgery for consult. Ordered: [facility] External Ambulatory Referral [facility] Internal Ambulatory Referral 2. Depression (F32.A: Depression, unspecified) - Will increase the wellbutrin. - Will send to counseling. - Follow up in 6 weeks. 3. BMI 50.0-59.9, adult (Z68.43: Body mass index [BMI] 50.0-59.9, adult) Discussed BMI and the needs for bariatric surgery at this BMI level. Ordered: Body Mass Index (BMI) documented 3008F Current tobacco smoker 1034F Depression Screening Positive 3354F [facility] External Ambulatory Referral [facility] Internal Ambulatory Referral Influenza immunization status assessed 1030F Most recent diastolic blood pressure 80-89 mm Hg 3079F Systolic BP 130-139 mm Hg (Most Recent) 3075F 4. Class 3 obesity (E66.01: Morbid (severe) obesity due to excess calories) Diet and exercise advised. Ordered: Body Mass Index (BMI) documented 3008F Current tobacco smoker 1034F Depression Screening Positive 3354F [facility] External Ambulatory Referral [facility] Internal Ambulatory Referral Influenza immunization status assessed 1030F Most recent diastolic blood pressure 80-89 mm Hg 3079F Systolic BP 130-139 mm Hg (Most Recent) 3075F 5. Vaping-related disorder (U07.0: Vaping-related disorder) Please stop vaping. Ordered: Body Mass Index (BMI) documented 3008F Current tobacco smoker 1034F Depression Screening Positive 3354F [facility] External Ambulatory Referral [facility] Internal Ambulatory Referral Influenza immunization status assessed 1030F Most recent diastolic blood pressure 80-89 mm Hg 3079F Systolic BP 130-139 mm Hg (Most Recent) 3075F Orders: buPROPion, 300 mg = 1 tab(s), Oral, q24hr, # 90 tab(s), Refills(s) 1, Pharmacy: [facility]/pharmacy #[id number], 168, cm, 09/11/23 8:16:00 EDT, Height/Length [...] malignant neoplasm of female breast: Grandparent. Normal [facility] Comment on above: Result Comment: Elec tronically Signed By: Derik PRADHAN, Paolo eBltran\.br\Date and Time Signed: 09/11/23 08:39 EDT Patient [...] numbers. This can be done either in [place]ian ([place] or metric measurements. Note that charts and online BMI calculators are available to help you find your BMI quickly and easily without having to do these calculations yourself. To calculate your BMI in [place]ian ([place].S.) measurements: 1. Measure your weight in [...] for Disease Control and Prevention: www.cdc.gov ? [place] Heart Association: www.heart.org ? National Heart, Lung, and Blood Bradford: www.nhlbi.nih.gov Summary ? Body mass index (BMI) is a number that is calculated from a person's weight and height. ? BMI may help estimate how much of a person's weight is composed of fat. BMI can help identify those who may be at higher risk for certain medical problems. ? BMI can be measured using Colombian measurements or metric measurements. ? BMI charts are used to identify whether you are underweight, normal weight, overweight, or obese. This information is not intended to replace advice given to you by your health care provider. Make sure you discuss any questions you have with your health care provider. Document Revised: 03/11/2020 Document Reviewed: 01/17/2020 ElseIndeed Patient Education ? 2022 [employer]. [facility] Physician Referralon 024 Physician Referral [id number] #[email or web address] [facility] Ambulatory Visit Summaryon 0 07-27-2023 Ambulatory [...] AM EST With: Paolo Ortiz MD Where: [facility] [place] Normal [address] [place] [phone] \.br\ Allergies\.br\ Sulfacetamide Sodium (Rash)\.br\ Problems\.br\ Ongoing [...] numbers. This can be done either in [place] ([place] or metric measurements. Note that charts and online BMI calculators are available to help you find your BMI quickly and easily without having to do these calculations yourself.\.br\ To calculate your BMI in [place]ian ([place].S[place] measurements:\.br \ \.br\ 1. \.br\ Measure [...] Disease Control and Prevention: www.cdc.gov\.br\ ? \.br\ [place] Heart Association: www.heart.org\.br \ ? \.br\ National Heart, Lung, and Blood Bradford: www.nhlbi.nih.gov \.br\ Summary\.br\ ? \.br\ Body mass index (BMI) is a number that is calculated from a person's weight and height.\.br\ ? \.br\ BMI may help estimate how much of a person's weight is composed of fat. BMI can help identify those who may be at higher risk for certain medical problems.\.br\ ? \.br\ BMI can be measured using [place]ian measurements or metric measurements.\.br \ ? \.br\ BMI charts are used to identify whether you are underweight, normal weight, overweight, or obese.\.br\ This information is not intended to replace advice given to you by your health care provider. Make sure you discuss any questions you have with your health care provider.\.br\ Document Revised: 03/11/2020 Document Reviewed: 01/17/2020 [employer] Patient Education ? 2022 [employer].\.br\ \.br\ [facility] Family Medicine Office/Clini c Noteon 07-27-2023 Family Medicine Office/Clinic Note HPI Staff Dionte is a 23 year old female presenting to establish care Establish Care: History: anxiety,depression asthma, gerd, [...] History of Present Illness Pt presents to establish care - Please see staff HPI for the [...] q24hr, # 90 tab(s), Refills(s) 0, Pharmacy: [facility] #[id number], 168, cm, 07/27/23 7:24:00 EST, Height/Length Dosing, 139.9, kg, 07/27/23 7:24:00 EST, Weight Dosing methylPREDNISolone, = 1 packet(s), Oral, As Directed, as directed on package labeling, X 6 day(s), # 21 tab(s), Refills(s) 0, Pharmacy: [facility]/pharmacy #[id number], 168, cm, 07/27/23 7:24:00 EST, Height/Length Dosing, 139.9, kg, 07/27/23 7:24:00 EST, Weight Dosing 2. GERD (gastroesophageal reflux disease) (K21.9: Gastro-esophageal reflux disease without esophagitis) - Will do OTC meds - Follow up PRN Ordered: buPROPion, 150 mg = 1 tab(s), Oral, q24hr, # 90 tab(s), Refills(s) 0, [id number], 168, cm, 07/27/23 7:24:00 EST, Height/Length Dosing, 139.9, kg, 07/27/23 7:24:00 EST, Weight Dosing methylPREDNISolone, = 1 packet(s), Oral, As Directed, as directed on package labeling, X 6 day(s), # 21 tab(s), Refills(s) 0, [id number], 168, cm, 07/27/23 7:24:00 EST, Height/Length Dosing, 139.9, kg, 07/27/23 7:24:00 EST, Weight Dosing 3. Asthma (J45.909: Unspecified asthma, uncomplicated) - Use albuterol PRN - Will add Ordered: buPROPion, 150 mg = 1 tab(s), Oral, q24hr, # 90 tab(s), Refills(s) 0, [id number], 168, cm, 07/27/23 7:24:00 EST, Height/Length Dosing, 139.9, kg, 07/27/23 7:24:00 EST, Weight Dosing methylPREDNISolone, = 1 packet(s), Oral, As Directed, as directed on package labeling, X 6 day(s), # 21 tab(s), Refills(s) 0, Pharmacy: [facility] #[id number], 168, cm, 07/27/23 7:24:00 EST, Height/Length Dosing, 139.9, kg, 07/27/23 7:24:00 EST, Weight Dosing 4. Anxiety (F41.9: Anxiety disorder, unspecified) - Will start Welburtin - Follow up in 6 weeks Ordered: buPROPion, 150 mg = 1 tab(s), Oral, q24hr, # 90 tab(s), Refills(s) 0, [id number], 168, cm, 07/27/23 7:24:00 EST, Height/Length Dosing, 139.9, kg, 07/27/23 7:24:00 EST, Weight Dosing methylPREDNISolone, = 1 packet(s), Oral, As Directed, as directed on package labeling, X 6 day(s), # 21 tab(s), Refills(s) 0, [id number], 168, cm, 07/27/23 7:24:00 EST, Height/Length Dosing, 139.9, kg, 07/27/23 7:24:00 EST, Weight Dosing 5. BMI 45.0-49.9, adult (Z68.42: Body mass index [BMI] 45.0-49.9, adult) - BMI education uploaded Ordered: buPROPion, 150 mg = 1 tab(s), Oral, q24hr, # 90 tab(s), Refills(s) 0, [id number], 168, cm, 07/27/23 7:24:00 EST, Height/Length Dosing, 139.9, kg, 07/27/23 7:24:00 EST, Weight Dosing methylPREDNISolone, = 1 packet(s), Oral, As Directed, as directed on package labeling, X 6 day(s), # 21 tab(s), Refills(s) 0, [id number], 168, cm, 07/27/23 7:24:00 EST, Height/Length Dosing, 139.9, kg, 07/27/23 7:24:00 EST, Weight Dosing Body Mass Index (BMI) documented 3008F Current tobacco smoker 1034F Depression Screening Positive 3354F Influe (more content not included)... Normal [facility] Comment on above: Result Comment: Elec tronically Signed By: Derik PRADHAN, Paolo Beltran\.br\Date and Time Signed: 07/27/23 08:12 EST Patient [...] numbers. This can be done either in [place]ian (U.[place] or metric measurements. Note that charts and online BMI calculators are available to help you find your BMI quickly and easily without having to do these calculations yourself. To calculate your BMI in [place]ian ([place].S.) measurements: 1. Measure your weight in [...] for Disease Control and Prevention: www.cdc.gov ? [place] Heart Association: www.heart.org ? National Heart, Lung, and Blood Bradford: www.nhlbi.nih.gov Summary ? Body mass index (BMI) is a number that is calculated from a person's weight and height. ? BMI may help estimate how much of a person's weight is composed of fat. BMI can help identify those who may be at higher risk for certain medical problems. ? BMI can be measured using Colombian measurements or metric measurements. ? BMI charts are used to identify whether you are underweight, normal weight, overweight, or obese. This information is not intended to replace advice given to you by your health care provider. Make sure you discuss any questions you have with your health care provider. Document Revised: 03/11/2020 Document Reviewed: 01/17/2020 [employer] Patient Education ? 2022 [employer] Inc[employer] Normal [facility] PAP ACOG PANEL 2: 21 to 29on 08-25-2021 . . [facility] Comment on above: Performed By: #### 4 [id number] #### [facility] [address] [address] [address] Mariah Garcia Age Gdln ACOG Testing 21-[address] [facility] Comment on above: Performed By: #### 4 [id number] #### [facility] [address] [address] [address] Mariah Garcia DIAGNOSIS: Comment [facility] Comment on above: Result Comment: NEGA TIVE FOR INTRAEPITHELIAL LESION OR MALIGNANCY. Performed By: #### 4 [id number] #### [facility] [address] [address] [address] Mariah Garcia Methodology: Comment [facility] Comment on above: Result Comment: This liquid based ThinPrep(R) pap test was screened with the use of an image guided system. Performed By: #### 4 [id number] #### [facility] [address] [place] [address] Dr. Mariah Garcia Note: Comment Normal [facility] Comment on above: Result Comment: The Pap smear is a screening test designed to aid in the detection of premalignant and malignant conditions of the uterine cervix. It is not a diagnostic procedure and should not be used as the sole means of detecting cervical cancer. Both false-positive and false-negative reports do occur. . Performed By: #### 4 [id number] #### [facility] [address] [place] [address] Dr. Mariah Garcia Performed by: Comment Normal [facility] Comment on above: Result Comment: Jesse Burrell, Turnaround Engineer (ASCP) Performed By: #### 4 [id number] #### [facility] [address] [place] [address] Dr. Mariah Garcia Reflex Criteria: Comment Normal [facility] Comment on above: Result Comment: The HPV DNA reflex criteria were not met with this specimen result therefore, no HPV testing was performed. . Performed By: #### 4 [id number] #### [facility] [address] [place] [address] Dr. Mariah Garcia Specimen adequacy: Comment Normal [facility] Comment on above: Result Comment: Sati sfactory for evaluation. Endocervical and/or squamous metaplastic cells (endocervical component) are present. Performed By: #### 4 [id number] #### [facility] [address] [place] [address] Dr. Mariah Garcia CHLAMYDIA/GONOCOCCUS BIRGIT (SW AB/URINE/PAPon 08-23-2021 Chlamydia trachomatis, BIRGIT Negative Normal Negative [facility] Comment on above: Performed By: #### C T/NGNA #### [facility] [address] [place] [address] Dr. Mariah Garcia Neisseria gonorrhoeae, BIRGIT Negative Normal Negative [facility] Comment on above: Performed By: #### C T/NGNA #### [facility] [address] [place] [address] Dr. Mariah Garcia VAGINITIS/VAGINOSIS DNA PROB Bin 08-22-2021 Emily species Negative Normal Negative [facility] Comment on above: Performed By: #### V AGINT #### [facility] [address] [place] [address] Dr. Mariah Garcia Gardnerella vaginalis Negative Normal Negative [facility] Comment on above: Performed By: #### V AGINT #### [facility] [address] [place] [address] Dr. Mariah Garcia Trichomonas vaginalis Negative Normal Negative [facility] Comment on above: Performed By: #### V AGINT #### [facility] [address] [place] [address] Dr. Mariah Garcia Covid-19 PCR (CVDTB)on SARS-CoV-2 (COVID-19) RNA BIRGIT+probe Ql (Unsp spec) Not detected Normal NOT DETECTED [facility] Comment on above: Result Comment: This test is not yet approved or cleared by the [place] FDA. When there are no FDA-approved or cleared tests available, and other criteria are met, FDA can make tests available under an emergency access mechanism called an Emergency Use Authorization (EUA). The EUA for this test is supported by the [employer]idential [employer] Sales Consultant of Health and Human Service's (HHS's) declaration [...] consistent with SARS-CoV-2. Performed By: #### C VDTBH #### [facility] [address] [place] [address] Dr. Mariah Garcia XR ankle LT min 3V*on 2020 XR ankle LT min 3V* [facility] [place] [address] XRay Report Signed Patient: Dionte Escamilla MR#: [id number] 8 : 2000 Acct:[id number] Age/Sex: 20 / F ADM Date: 12/10/20 Loc: ER Room: Type: [facility] ER Attending Dr: Ordering Provider: Shon Terrell Jr, MD Date of Service: 12/10/20 XR/XR ankle LT min 3V*: Extremity Injury, Lower Copies to: Shon Terrell Jr, MD 3views LEFTankle COMPARISON:None HISTORY: LEFT ankle injury No fracture, dislocation or focal soft tissue abnormality seen. XR/XR ankle LT min 3V* IMPRESSION: No acute findings. Impression dictated by: Jj Kennedy M.D.12/10/2020 8:58 AM Dictation Location: [place] [address] Transcribed By: [facility] 12/10/20 0858 Dictated By: Jj Kennedy DO 12/10/20 0857 Signed By: 12/10/20 0858 Normal [facility] Vital Signs Date Time Vital Sign Value Performing Clinician Facility 10-30-2023 10:43-0400 Body height 167.6 cm Sangeeta Burrell MD Work Phone: [facility] 10-30-2023 10:43-0400 Body mass index (BMI) [Ratio] 51.17 kg/m2 Sangeeta Burrell MD Work Phone: [facility] 10-30-2023 10:43-0400 Body weight 143.79 kg Sangeeta Burrell MD Work Phone: [facility] 12-26-2022 22:50-0400 Body temperature 98.06 [degF] Dinesh Whatley [facility] 12-26-2022 22:50-0400 Diastolic blood pressure 99 mm[Hg] Dinesh Whatley [facility] 12-26-2022 22:50-0400 Heart rate 94 /min Dinesh Whatley [facility] 12-26-2022 22:50-0400 Respiratory rate 16 /min Dinesh Whatley [facility] 12-26-2022 22:50-0400 SaO2% (BldA) [Mass fraction] 99 % Dinesh Whatley [facility] 12-26-2022 22:50-0400 Systolic blood pressure 147 mm[Hg[facility] Encounters Encounter Date Encounter Type Care Provider Facility Start: 08-05-2024 ambulatory Paolo Ortiz Facility :[facility] [place] Start: 06-03-2024 End: 06-03-2024 ambulatory Paolo Ortiz Facility:[facility] [place] Start: 05-06-2024 End: 05-06-2024 ambulatory Paolo Ortiz Facility:[facility] [place] Start: 04-29-2024 End: 04-29-2024 ambulatory Paolo Ortiz Facility:[facility] [place] Start: 03-18-2024 End: 03-18-2024 ambulatory Paolo Ortiz Facility:[facility] [place] Start: 02-13-2024 End: 02-13-2024 ambulatory Yolanda Luna Facility:[facility] [place] Start: 02-12-2024 End: 02-12-2024 ambulatory Yolanda Almanzar Jeremy Facility:[facility] [place] Start: 01-05-2024 ambulatory CRISTINO DIAZ [facility] Start: 12-11-2023 [facility] Comment on above: Smoking Cessation Start: 12-07-2023 End: 12-07-2023 ambulatory CRISTINO DIAZ Facility:[facility] Start: 12-07-2023 End: 12-07-2023 Patient encounter procedure CRISTINO DIAZ [facility] Start: 12-06-2023 End: 12-06-2023 ambulatory HUY Maloney NIKO Facility:[facility] Start: 11-15-2023 End: 11-16-2023 ambulatory SANGEETA BURRELL Facility:[facility] Start: 11-15-2023 Encounter for other preprocedural examination SANGEETA BURRELL [facility] Start: 11-13-2023 End: 11-13-2023 ambulatory SHERYL LÓPEZ Facility:[facility] Start: 11-06-2023 End: 11-06-2023 ambulatory CRISTINO DIAZ Facility:[facility] Start: 11-06-2023 End: 11-06-2023 Patient encounter procedure CRISTINO DIAZ [facility] Start: 11-01-2023 End: 11-01-2023 Admission to same day surgery center Rick Carpio MD Work Phone: General Surgery Comment on above: Class 3 severe obesi ty without serious comorbidity with body mass index (BMI) of 50.0 to 59.9 in adult, unspecified obesity type (HCC) (Primary Dx) Start: 11-01-2023 End: 11-01-2023 ambulatory RICK CARPIO Facility:[facility] Start: 11-01-2023 End: 11-01-2023 Telemedicine consultation with patient Rick Carpio MD Work Phone: General Surgery Start: 10-30-2023 End: 10-30-2023 ambulatory SANGEETA BURRELL Facility:[facility] Start: 10-30-2023 End: 10-30-2023 Patient encounter procedure Sangeeta Burrell MD Work Phone: Endocrinology BMI Comment on above: Preop testing (Prima ry Dx); Morbid obesity with BMI of 50.0-59.9, adult (HCC); Snoring; Fatigue, unspecified type Start: 10-30-2023 End: 10-30-2023 Patient encounter status Sangeeta Burrell MD Work Phone: [facility] Work Phone: Start: 10-30-2023 End: 10-30-2023 Telemedicine consultation with patient Sangeeta Burrell MD Work Phone: Endocrinology BMI Start: 10-27-2023 End: 10-27-2023 ambulatory CRISTINO DIAZ Facility:[facility] Start: 10-27-2023 End: 10-27-2023 Patient encounter procedure CRISTINO DIAZ [facility] Start: 10-23-2023 End: 10-23-2023 ambulatory Paolo Ortiz Facility:[facility] [place] [facility] Start: 10-12-2023 End: 10-12-2023 ambulatory CRISTINO DIAZ Facility:[facility] Start: 10-12-2023 End: 10-12-2023 Patient encounter procedure CRISTINO DIAZ [facility] Start: 09-29-2023 ambulatory CRISTINO DIAZ Facility [facility] Start: 09-19-2023 ambulatory [facility]olo Ortiz [facility] Start: 09-11-2023 End: 09-11-2023 ambulatory Paolo Ortiz Facility:[facility] [place] [facility] Start: 07-27-2023 End: 07-27-2023 ambulatory Paolo Ortiz Facility:[facility] [place] [facility] Start: 12-26-2022 End: 12-27-2022 Emergency department patient visit Dinesh Whatley [facility] Start: 08-20-2021 End: 08-20-[address] CHAD STRONG Facility:[facility] Start: 04-06-2021 End: 04-06-[address] CHAD STRONG Facility:[facility] Procedures Date Procedure Procedure Detail Performing Clinician None (qualifier value) Yamilka [facility] Surgery (qualifier value) ROXANA DIAZ Comment on above: left foot Plan of Treatment Date Care Activity Detail Author Start: 03-03-2024 Influenza vaccination Influenz a Vaccine (Season Ended) [facility] Start: 01-22-2024 End: 01-22-2024 Admission to same day surgery center 01/22/2024 8:00 AM EDT [facility] [address] [place] [address] [place] [address] [facility]6mon[facility] General Surgery Comment on above: Red/Gutnick/6mon/Buc keye Start: 01-17-2024 End: 01-17-2024 ambulatory 01/17/2024 3:00 PM EDT [facility] [address] [place] [address] Britt Villalobos MD [address] [place] [address] Preop testing [Z01.818] Neurology Comment on above: Preop testing [Z01.8 18] Start: 12-29-2023 End: 12-29-2023 Patient encounter procedure Radiology Comment on above: Preop testing [Z01.8 18] no spl, chkd jmg Pre op testing [Z01.818] Start: 12-26-2023 End: 12-26-2023 Nursing evaluation of patient and report 12/26/2023 10:00 AM EDT Nurse Visit Cardiology [address] [place] [address] Ana, Nurse Card [facility] [address] [place] [address] Preop testing [Z01.818] Cardiology Comment on above: Preop testing [Z01.8 18] Start: 12-13-2023 End: 12-13-2023 Admission to same day surgery center 12/13/2023 9:30 AM EDT [facility] [address] [place] [address] Eloisa Fam, CORNELIA [facility] [address] [place] [address] [facility]/6mon/[facility] General Surgery Comment on above: Red/Gutnick/6mon/Buc keye Start: 11-30-2023 End: 11-30-2023 Patient encounter procedure 11/30/2023 12:30 PM EDT [facility] Endocrinology BMI [address] [place] [address] Domen[address] Dent, CORNELIA [address] [place] [address] [facility]/6mon/[facility] Endocrinology BMI Comment on above: Red/Gutnick/6mon/Buc keye Start: 11-16-2023 End: 11-16-2023 Patient encounter procedure 11/16/2023 10:00 AM EDT Office Visit Neurology [address] [place] [address] Preop testing [Z01.818] Neurology Comment on above: Preop testing [Z01.8 18] Start: 11-03-2023 End: 11-03-2023 ambulatory 11/03/2023 11:30 AM EDT Results Only [facility] [address] [place] [address] [place] [address] [facility] Start: 11-01-2023 End: 11-01-2023 Admission to same day surgery center 11/01/2023 12:40 PM EDT [facility] [address] [place] [address] [place] [address] [place] [address] Red/Gutnick/6mon/Buc[facility] e General Surgery Comment on above: Red/Gutnick/6mon/Buc keye Start: 10-30-2023 End: 10-29-2024 25-hydroxyvitamin D3 [Mass/volume] in Serum or Plasma VITAMIN D 25 HYDROXY Lab Routine Preop testing Snoring Fatigue, unspecified type Morbid obesity with BMI of 50.0-59.9, adult (HCC) Expected: 10/30/2023, Expires: 10/29/2024 [facility] Comment on above: Expected: 10/30/2023 , Expires: 10/29/2024 Start: 10-30-2023 End: 10-29-2024 CBC panel - Blood by Automated count COMPLETE BLOOD COUNT Lab Routine Preop testing Snoring Fatigue, unspecified type Morbid obesity with BMI of 50.0-59.9, adult (HCC) Expected: 10/30/2023, Expires: 10/29/2024 [facility] Comment on above: Expected: 10/30/2023 , Expires: 10/29/2024 Start: 10-30-2023 End: 10-29-2024 Cobalamin (Vitamin B12) [Mass/volume] in Serum or Plasma VITAMIN B12 Lab Routine Preop testing Snoring Fatigue, unspecified type Morbid obesity with BMI of 50.0-59.9, adult (HCC) Expected: 10/30/2023, Expires: 10/29/2024 [facility] Comment on above: Expected: 10/30/2023 , Expires: 10/29/2024 Start: 10-30-2023 End: 10-29-2024 Comprehensive metabolic 2000 panel - Serum or Plasma COMPREHENSIVE METABOLIC PANEL Lab Routine Preop testing Snoring Fatigue, unspecified type Morbid obesity with BMI of 50.0-59.9, adult (HCC) Expected: 10/30/2023, Expires: 10/29/2024 [facility] Comment on above: Expected: 10/30/2023 , Expires: 10/29/2024 Start: 10-30-2023 End: 10-29-2024 Folate [Mass/volume] in Serum or Plasma FOLATE, SERUM Lab Routine Preop testing Snoring Fatigue, unspecified type Morbid obesity with BMI of 50.0-59.9, adult (HCC) Expected: 10/30/2023, Expires: 10/29/2024 [facility] Comment on above: Expected: 10/30/2023 , Expires: 10/29/2024 Start: 10-30-2023 End: 10-29-2024 Hemoglobin A1c in Blood HEMOGLOBIN A1C Lab Routine Preop testing Snoring Fatigue, unspecified type Morbid obesity with BMI of 50.0-59.9, adult (HCC) Expected: 10/30/2023, Expires: 10/29/2024 [facility] Comment on above: Expected: 10/30/2023 , Expires: 10/29/2024 Start: 10-30-2023 End: 10-29-2024 Iron and Iron binding capacity panel - Serum or Plasma IRON AND TIBC Lab Routine Preop testing Snoring Fatigue, unspecified type Morbid obesity with BMI of 50.0-59.9, adult (HCC) Expected: 10/30/2023, Expires: 10/29/2024 [facility] Comment on above: Expected: 10/30/2023 , Expires: 10/29/2024 Start: 10-30-2023 End: 10-29-2024 Lipid 1996 panel - Serum or Plasma LIPID PANEL BASIC Lab Routine Preop testing Snoring Fatigue, unspecified type Morbid obesity with BMI of 50.0-59.9, adult (HCC) Expected: 10/30/2023, Expires: 10/29/2024 [facility] Comment on above: Expected: 10/30/2023 , Expires: 10/29/2024 Start: 10-30-2023 End: 10-29-2024 Parathyrin.intact [Mass/volume] in Serum or Plasma PTH INTACT Lab Routine Preop testing Snoring Fatigue, unspecified type Morbid obesity with BMI of 50.0-59.9, adult (HCC) Expected: 10/30/2023, Expires: 10/29/2024 [facility] Comment on above: Expected: 10/30/2023 , Expires: 10/29/2024 Start: 10-30-2023 End: 10-29-2024 Thyrotropin [Units/volume] in Serum or Plasma THYROID STIMULATING HORMONE Lab Routine Preop testing Snoring Fatigue, unspecified type Morbid obesity with BMI of 50.0-59.9, adult (HCC) Expected: 10/30/2023, Expires: 10/29/2024 [facility] Comment on above: Expected: 10/30/2023 , Expires: 10/29/2024 Start: 10-30-2023 End: 01-29-2024 VITAMIN B1 (THIAMINE), WHOLE BLOOD VITAMIN B1 (THIAMINE), WHOLE BLOOD Lab Routine Preop testing Snoring Fatigue, unspecified type Morbid obesity with BMI of 50.0-59.9, adult (HCC) Expected: 10/30/2023, Expires: 01/29/2024 [facility] Comment on above: Expected: 10/30/2023 , Expires: 01/29/2024 Start: 07-03-2023 Behavioral Health Screening Behavioral Health Screening [facility] Start: 03-03-2023 Covid-19 Vaccine ( season) Covid-19 Vaccine ( season) [facility] Start: 04-14-2021 Urine microalbumin profile DTaP,Tdap,Td Vaccine (7 - Td or Tdap) [facility] Start: 02-19-2020 Screening for malign ant neoplasm of cervix [facility] Start: 2017 Hepatitis C screening Hepatitis C Sc reening [facility] Start: 2017 HIV screening HIV Screening [facility] Start: 2013 Peds To Adult Transition Annual Assessment Peds To Adult Transition Annual Assessment [facility] Start: 2011 Peds To Adult Transition Initial Discussion Peds To Adult Transition Initial Discussion [facility] End: 10-29-2024 ECG COMPLETE ECG COMPLETE ECG Routine Preop testing Snoring Fatigue, unspecified type Morbid obesity with BMI of 50.0-59.9, adult (HCC) 1 Occurrences starting 10/30/2023 until 10/29/2024 [facility] Comment on above: 1 Occurrences starti ng 10/30/2023 until 10/29/2024 End: 10-29-2024 HOME SLEEP APNEA TEST (HSAT) HOME SLEEP APNEA TEST (HSAT) Procedures Routine Preop testing Snoring Fatigue, unspecified type Morbid obesity with BMI of 50.0-59.9, adult (HCC) 1 Occurrences starting 10/30/2023 until 10/29/2024 [facility] Work Phone: Comment on above: 1 Occurrences starti ng 10/30/2023 until 10/29/2024 End: 11-28-2024 US Abdomen RUQ US ABD RIGHT UPPER QUADRANT Radiology Routine Preop testing Snoring Fatigue, unspecified type Morbid obesity with BMI of 50.0-59.9, adult (HCC) 1 Occurrences starting 10/30/2023 until 11/28/2024 [facility] Comment on above: 1 Occurrences starti ng 10/30/2023 until 11/28/2024 End: 11-28-2024 XR Chest PA and Lateral XR CHEST 2V FRONTAL/LAT Radiology Routine Preop testing Snoring Fatigue, unspecified type Morbid obesity with BMI of 50.0-59.9, adult (HCC) 1 Occurrences starting 10/30/2023 until 11/28/2024 [facility] Comment on above: 1 Occurrences starti ng 10/30/2023 until 11/28/2024 Immunizations Immunization Date Immunization Notes Care Provider Paulino garcía 06-02-2015 influenza virus vacc ine, unspecified formulation Sangeeta Burrell MD Work Phone: [facility] Payers Date Payer Category Payer Medicaid [id number] 1999 Unknown [id number] 2.16.84 [id number] 1999 Unknown [id number] 2.16.84 [id number] 1999 Unknown [id number] 2.16.8 40.1.569818.3.579.2.727 1999 Unknown [id number] 2.16.8 40.1.274634.3.579.2.727 1999 Unknown [id number] 2.16.8 40.1.084429.3.579.2.727 1999 Unknown [id number] 2.16.8 40.1.908257.3.579.2.727 1999 Unknown [id number] 2.16.8 40.1.015909.3.579.2.727 1999 Unknown [id number] 2.16.8 40.1.513718.3.579.2.727 1999 Unknown [id number] 2.16.8 40.1.776324.3.579.2.727 1999 Unknown [id number] 2.16.8 40.1.957598.3.579.2.727 1999 Unknown [id number] 2.16.8 40.1.963638.3.579.2.727 1999 Unknown [id number] 2.16.8 40.1.989074.3.579.2.727 1999 Unknown [id number] 2.16.8 40.1.597148.3.579.2.727 1999 Unknown [id number] 2.16.8 40.1.559513.3.579.2.727 1999 Unknown [id number] 2.16.8 40.1.348714.3.579.2.727 1999 Unknown [id number] 2.16.8 40.1.658712.3.579.2.727 1999 Unknown [id number] 2.16.8 40.1.342454.3.579.2.727 1999 Unknown [id number] 2.16.8 40.1.873114.3.579.2.727 1999 Unknown [id number] 2.16.8 40.1.157379.3.579.2.727 1959 Unknown [id number] Social History Date Type Detail Facility Tobacco smoking status No Smokin g Status Entered [facility] Start: 10-24-2023 End: 12-05-2023 Sex Assigned At Female [facility] Start: 09-11-2023 Tobacco smoking status Ex-smoker (fi nding) [facility] Tobacco smoking status Never [facility] Tobacco smoking stat [facility] Tobacco smoking consumption unknown [facility] Start: 10-24-2023 End: 12-05-2023 History of Social function [facility] Start: 2000 Sex Assigned At Female [facility] Start: 10-23-2023 Gender identity Identifies as female gender (finding) [facility] Start: 10-23-2023 Sexual orientation Bisexual (finding ) [facility] Functional Status Date Assessment Result Facility 12-26-2022 Functional Status N/A [facility] Clinical Notes 12-27-2022 to 06-03-2024 Telephone Encounter - Maddie Dsouza [facility] ED - 12/11/2023 8:08 AM EDTTelephone Encounter - Maddie Dsouza [facility] ED - 12/11/2023 8:08 AM EDTPatient Instructions Note Date & Type Note Facility 06-03-2024 Note Patient Education Nutrition BMI for Adults Body mass index (BMI) is a number found using a person's weight and height. BMI can help tell how much of a person's weight is made up of fat. BMI does not measure body fat directly. It is used instead of tests that directly measure body fat, which can be difficult and expensive. What are BMI measurements used for? BMI is useful to: ??? Find out if your weight puts you at higher risk for medical problems. ??? Help recommend changes, such as in diet and exercise. This can help you reach a healthy weight. BMI screening can be done again to see if these changes are working. How is BMI calculated? Your height and weight are measured. The BMI is found from those numbers. This can be done with U.S. or metric measurements. Note that charts and online BMI calculators are available to help you find your BMI quickly and easily without doing these calculations. To calculate your BMI in U.S. measurements: 1. Measure your weight in pounds (lb). 2. Multiply the number of pounds by 703. ??? So, for an adult who weighs 150 lb, multiply that number by 703: 150 x 703, which equals 105,450. 3. Measure your height in inches. Then multiply that number by itself to get a measurement called inches squared. ??? So, for an adult who is 70 inches tall, the inches squared measurement is 70 inches x 70 inches, which equals 4,900 inches squared. 4. Divide the total from step 2 (number of lb x 703) by the total from step 3 (inches squared): 105,450 ? 4,900 = 21.5. This is your BMI. To calculate your BMI in metric measurements: 1. Measure your weight in kilograms (kg). ??? For this example, the weight is 70 kg. 2. Measure your height in meters (m). Then multiply that number by itself to get a measurement called meters squared. ??? So, for an adult who is 1.75 m tall, the meters squared measurement is 1.75 m x 1.75 m, which equals 3.1 meters squared. 3. Divide the number of kilograms (your weight) by the meters squared number. In this example: 70 ? 3.1 = 22.6. This is your BMI. What do the results mean? BMI charts are used to see if you are underweight, normal weight, overweight, or obese. The following guidelines will be used: ??? Underweight: BMI less than 18.5. ??? Normal weight: BMI between 18.5 and 24.9. ??? Overweight: BMI between 25 and 29.9. ??? Obese: BMI of 30 or above. BMI is a tool and cannot diagnose a condition. Talk with your health care provider about what your BMI means for you. Keep these notes in mind: ??? Weight includes fat and muscle. Someone with a muscular build, such as an athlete, may have a BMI that is higher than 24.9. In cases like these, BMI is not a correct measure of body fat. ??? If you have a BMI of 25 or higher, your provider may need to do more testing to find out if excess body fat is the cause. ??? BMI is measured the same way for males and females. Females usually have more body fat than males of the same height and weight. Where to find more information For more information about BMI, including tools to quickly find your BMI, go to: ??? Centers for Disease Control and Prevention: cdc.gov ??? [place] Heart Association: heart.org ??? National Heart, Lung, and Blood [place]: nhlbi.nih.gov This information is not intended to replace advice given to you by your health care provider. Make sure you discuss any questions you have with your health care provider. Document Revised: 03/09/2023 Document Reviewed: 03/02/2023 [employer] Patient Education ? 2023 [email or web address] [facility] 05-06-2024 Note Patient Education Nutrition BMI for Adults Body mass index (BMI) is a number found using a person's weight and height. BMI can help tell how much of a person's weight is made up of fat. BMI does not measure body fat directly. It is used instead of tests that directly measure body fat, which can be difficult and expensive. What are BMI measurements used for? BMI is useful to: ??? Find out if your weight puts you at higher risk for medical problems. ??? Help recommend changes, such as in diet and exercise. This can help you reach a healthy weight. BMI screening can be done again to see if these changes are working. How is BMI calculated? Your height and weight are measured. The BMI is found from those numbers. This can be done with U.S. or metric measurements. Note that charts and online BMI calculators are available to help you find your BMI quickly and easily without doing these calculations. To calculate your BMI in U.S. measurements: 1. Measure your weight in pounds (lb). 2. Multiply the number of pounds by 703. ??? So, for an adult who weighs 150 lb, multiply that number by 703: 150 x 703, which equals 105,450. 3. Measure your height in inches. Then multiply that number by itself to get a measurement called inches squared. ??? So, for an adult who is 70 inches tall, the inches squared measurement is 70 inches x 70 inches, which equals 4,900 inches squared. 4. Divide the total from step 2 (number of lb x 703) by the total from step 3 (inches squared): 105,450 ? 4,900 = 21.5. This is your BMI. To calculate your BMI in metric measurements: 1. Measure your weight in kilograms (kg). ??? For this example, the weight is 70 kg. 2. Measure your height in meters (m). Then multiply that number by itself to get a measurement called meters squared. ??? So, for an adult who is 1.75 m tall, the meters squared measurement is 1.75 m x 1.75 m, which equals 3.1 meters squared. 3. Divide the number of kilograms (your weight) by the meters squared number. In this example: 70 ? 3.1 = 22.6. This is your BMI. What do the results mean? BMI charts are used to see if you are underweight, normal weight, overweight, or obese. The following guidelines will be used: ??? Underweight: BMI less than 18.5. ??? Normal weight: BMI between 18.5 and 24.9. ??? Overweight: BMI between 25 and 29.9. ??? Obese: BMI of 30 or above. BMI is a tool and cannot diagnose a condition. Talk with your health care provider about what your BMI means for you. Keep these notes in mind: ??? Weight includes fat and muscle. Someone with a muscular build, such as an athlete, may have a BMI that is higher than 24.9. In cases like these, BMI is not a correct measure of body fat. ??? If you have a BMI of 25 or higher, your provider may need to do more testing to find out if excess body fat is the cause. ??? BMI is measured the same way for males and females. Females usually have more body fat than males of the same height and weight. Where to find more information For more information about BMI, including tools to quickly find your BMI, go to: ??? Centers for Disease Control and Prevention: cdc.gov ??? [place] Heart Association: heart.org ??? National Heart, Lung, and Blood [place]: nhlbi.nih.gov This information is not intended to replace advice given to you by your health care provider. Make sure you discuss any questions you have with your health care provider. Document Revised: 03/09/2023 Document Reviewed: 03/02/2023 [email or web address] Patient Education ? 2023 [employer] [facility] 03-18-2024 Note Patient Education Nutrition BMI for Adults Body mass index (BMI) is a number found using a person's weight and height. BMI can help tell how much of a person's weight is made up of fat. BMI does not measure body fat directly. It is used instead of tests that directly measure body fat, which can be difficult and expensive. What are BMI measurements used for? BMI is useful to: ? Find out if your weight puts you at higher risk for medical problems. ? Help recommend changes, such as in diet and exercise. This can help you reach a healthy weight. BMI screening can be done again to see if these changes are working. How is BMI calculated? Your height and weight are measured. The BMI is found from those numbers. This can be done with U.S. or metric measurements. Note that charts and online BMI calculators are available to help you find your BMI quickly and easily without doing these calculations. To calculate your BMI in U.S. measurements: 1. Measure your weight in pounds (lb). 2. Multiply the number of pounds by 703. ? So, for an adult who weighs 150 lb, multiply that number by 703: 150 x 703, which equals 105,450. 3. Measure your height in inches. Then multiply that number by itself to get a measurement called inches squared. ? So, for an adult who is 70 inches tall, the inches squared measurement is 70 inches x 70 inches, which equals 4,900 inches squared. 4. Divide the total from step 2 (number of lb x 703) by the total from step 3 (inches squared): 105,450 ? 4,900 = 21.5. This is your BMI. To calculate your BMI in metric measurements: 1. Measure your weight in kilograms (kg). ? For this example, the weight is 70 kg. 2. Measure your height in meters (m). Then multiply that number by itself to get a measurement called meters squared. ? So, for an adult who is 1.75 m tall, the meters squared measurement is 1.75 m x 1.75 m, which equals 3.1 meters squared. 3. Divide the number of kilograms (your weight) by the meters squared number. In this example: 70 ? 3.1 = 22.6. This is your BMI. What do the results mean? BMI charts are used to see if you are underweight, normal weight, overweight, or obese. The following guidelines will be used: ? Underweight: BMI less than 18.5. ? Normal weight: BMI between 18.5 and 24.9. ? Overweight: BMI between 25 and 29.9. ? Obese: BMI of 30 or above. BMI is a tool and cannot diagnose a condition. Talk with your health care provider about what your BMI means for you. Keep these notes in mind: ? Weight includes fat and muscle. Someone with a muscular build, such as an athlete, may have a BMI that is higher than 24.9. In cases like these, BMI is not a correct measure of body fat. ? If you have a BMI of 25 or higher, your provider may need to do more testing to find out if excess body fat is the cause. ? BMI is measured the same way for males and females. Females usually have more body fat than males of the same height and weight. Where to find more information For more information about BMI, including tools to quickly find your BMI, go to: ? Centers for Disease Control and Prevention: cdc.gov ? [place] Heart Association: heart.org ? National Heart, Lung, and Blood [place]: nhlbi.nih.gov This information is not intended to replace advice given to you by your health care provider. Make sure you discuss any questions you have with your health care provider. Document Revised: 03/09/2023 Document Reviewed: 03/02/2023 [employer] Patient Education ? 2023 [employer] [facility] 12-11-2023 Telephone encounter Note Smoking Cessation Navigation Outcome of contact: Left Message Comments: A voicemail has been left for this patient regarding Tobacco Cessation support options. If this patient has any further questions they can email us at [email or web address] or call us at [phone]. [employer] Clinical Informatics Specialist/Smoking Cessation Navigator: Maddie Rebrittnee [facility] 12-11-2023 Miscellaneous Notes Smoking Cessation Navigation Outcome of contact: Left Message Comments: A voicemail has been left for this patient regarding Tobacco Cessation support options. If this patient has any further questions they can email us at [email or web address] or call us at [phone]. eHealth Clinical Informatics Specialist/Smoking Cessation Navigator: [facility]e Rock [facility] documented in this encounter [facility] 12-06-2023 Note HNO ID: [id number] Author: HUY ESCOTO PSYD Service: ? Author Type: Psychologist Type: Progress Notes Filed: 12/07/2023 09:53 Note Text: [facility] BARIATRIC SURGERY BEHAVIORAL HEALTH EVALUATION DATE OF SERVICE: 12/06/2023 TIME OF SERVICE: 3:00PM to 4:20PM COST CENTER: [facility] CPT CODE: - 48419 Brief Emotional/Behavioral Assessment with scoring/documentation [id number] Virtual Psych Diagnostic Eval BILLING CODE: ENDO PSYL MAIN Fink BMI Surgical Pathway Visit type: Psychology Visit SESSION #: 1 The patient signed the Informed Consent for Psychological Evaluation AND Care Form via [employer] (see consent dated 12/05/23), and the behavioral health care insurance benefits, fees for service, emergency procedures, and the limits of confidentiality that may pertain with any given case were discussed with the patient. The patient was given a copy of the consent form via [employer] I have communicated my name and active licensure. The patient's identity and physical location were verified at the time of this visit. Either the patient or their legal counter sales representative has been informed of the [...] technology to benefit from virtual format. Platform: [employer] Address of Patient During Time of Virtual Visit: Pt home at [address] [place] [address] Emergency Contact: Cari Escamilla (Grandparent) at IDENTIFYING [...] with any previou (more content not included)... [facility] 11-13-2023 Note HNO ID: [id number] Author: SHERYL LÓPEZ, PhD Service: ? Author Type: Psychologist Type: Progress Notes Filed: 11/13/2023 15:38 Note Text: [facility] Bariatric Behavioral Services Progress Note November 13, 2023 Patient did not check in for scheduled appointment. This visit will be marked as a no-show. Sheryl López, Ph.D. Clinical Psychologist [facility] 11-01-2023 History of Presen t illness Narrative RICK CARPIO MD, FACS, [facility] CELL: [phone] OFFICE: [phone] FAX: [phone] NEW PATIENT VIRTUAL CONSULT VISIT Consultation requested by Dr. Paolo Ortiz for an opinion regarding obesity therpay. My final recommendations will be communicated back to the requesting physician by way of shared Medical record or letter to requesting physician via [place] mail. This is a virtual visit using [employer] video visit. It required patient-provider interaction for the medical decision making as documented below. I have communicated my name and active licensure. The patient's identity and physical location were verified at the time of this visit. Either the patient or their legal counter sales representative has been informed of the [...] RICK CARPIO MD documented in this encounter [facility] 11-01-2023 Note HNO ID: [id number] Author: RICK CARPIO MD Service: ? Author Type: Physician Type: Progress Notes Filed: 11/01/2023 12:54 Note Text: RICK CARPIO MD, [facility], [facility] CELL: [phone] OFFICE: [phone] FAX: [phone] NEW PATIENT VIRTUAL CONSULT VISIT Consultation requested by Dr. Paolo Ortiz for an opinion regarding obesity therpay. My final recommendations will be communicated back to the requesting physician by way of shared Medical record or letter to requesting physician via [place] mail. This is a virtual visit using [employer] video visit. It required patient-provider interaction for the medical decision making as documented below. I have communicated my name and active licensure. The patient's identity and physical location were verified at the time of this visit. Either the patient or their legal counter sales representative has been informed of the [...] type: Bariatric Surgeon Visit RICK CARPIO MD [facility] 10-30-2023 Instructions Sangeeta Burrell MD - 10/30/2023 11:01 AM EDT INSTRUCTIONS: 1) Please contact me (Dr. Burrell) if you have not heard about your test results within a few days after you had them done. Thank you: Contact information: [facility] [place] M61/Attention: Dr. Burrell [address] [place] [address] 2) Please check with your insurance company regarding cost/coverage of any tests ordered prior to having them completed. Sher Escamilla , Thank you for completing your visit today and we welcome you to the surgical program. We are sure that you will still have some additional questions and encourage you to reach out to your care provider via [employer] OR your Patient Navigator. The contact information for each Navigator is listed below: Sharita Dudley and Marce: Sil Sharita Jimenez, Michelle, and Edy: Shona Sharita López, Frank, and Nathan: Mary Shraita Tavera and Talat: Jennifer Sharita Marin and [...] free to ask for a hard copy. [email or web address] Once you complete all of the requirements (testing, consultations, diet, etc) from each provider, please call [phone] and select option #5 to initiate insurance approval. Also, if you have any questions along the way, we encourage you to join our weekly Navigation webinar every Monday from 12:00 pm - 1:00 pm. This webinar will give you an opportunity to chat with your patient navigator and learn about your specific program requirements. The link for this webinar is below: [email or web address] Please note scheduling information It is important to keep track of your scheduled appointments to ensure successful completion of our surgical program. Any missed appointments can further delay your pre-surgical work-up. [facility] does offer an opt-in option for getting text message appointment reminders. Please follow the link below if you would like to opt into this service. [email or web address] As part of your [...] these tests. You may call your local [facility] to get an appointment. - Lab work- No appointment is needed for this, you may complete at any [facility]. These are usually fasting labs, please be sure to fast (only water permitted) for 10-12 hours prior to the test. -Sleep Study- Please call [phone] or [phone] to get this appointment set up. -Sleep Medicine Consult- (Only needed if sleep study confirms sleep apnea) Please call [phone] or [phone] to schedule an appointment. Any testing that is completed outside of [facility] will need faxed to [phone]. We look forward to working with you on this journey, Sangeeta Burrell MD documented in this encounter [facility] 10-30-2023 Note HNO ID: [id number] Author: SANGEETA BURRELL MD Service: ? Author Type: Physician Type: Progress Notes Filed: 10/30/2023 17:03 Note Text: I have communicated my name and active licensure. The patient's identity and physical location were verified at the time of this visit. 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 [facility] 10-30-2023 History of Presen t illness Narrative I have communicated my name and active licensure. The patient's identity and physical location were verified at the time of this visit. 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 -tobacco use: vape-has been talking her doctor; ALL: See [facility] LABS: IMAGING: PROC: CARDIAC: MEDS: See Epic [...] cardiac, valvular or vascular issues *No h/o NH, CHF,NH;no cp/palpitations Respiratory: Denies any known h/o lung [...] other psychiatric problems Other providers: -PCP -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 documented in this encounter [facility] 12-27-2022 Evaluation + Plan note Extrac fletcher from: Title:ED Note Author:Eric Rosenthal PA-C e:12/27/22 Foot contusion (S90.30XA: Co ntusion of unspecified foot, initial encounter) Orders: ketorolac, 60 mg = 2 mL, Injection, IntraMuscular, Once, Stop date 12/27/22 0:12:00 EDT, STAT, Start date 12/27/22 0:12:00 EDT, 12/27/22 0:12:00 EDT Surgical Boot XR Foot 3+ Views Left Future Appointments Appointment Date:03/02/2023 09:40:00 AM Scheduled Provider:Paolo Ortiz MD Location:[facility] Appointment Type: New Patient - Adult [facility]06-27-2023 Hospital Discharge instructions Patient Education 12/27/2022 00:14:24 [...] may be recommended to support your foot. Vzyz-pzv-xlzzttz anti-inflammatory medicines may also be recommended for [...] sitting or lying down. General instructions Take gdyd-fsg-keopxgm and prescription medicines only as told by [...] provider. Document Revised: 09/22/2021 Document Reviewed: 09/22/2021 [employer] Patient Education 2022 [employer]. Follow Up Care 12/26/2022 22:46:10 With:XXXX NONE Address: [place] When:12/30/2022 Comments:Call the office of your primary [...] you develop any new or worsening symptoms. [facility] Future App[facility]ments Appointment Date:10/23/2023 09:30:00 AM Scheduled Provider:Paolo Ortiz MD [facility]oint[facility] Type:[facility] evaluation + Plan note Future Appointments Appointment Date:11/23/2023 01:00:00 PM Scheduled Provider:CRISTINO VARELA Location:[facility] Appointment Type: Video Visit Therapy 60 [facility] evaluation note* Diagnosis Preop testing- Primary Preoperative examination, unspecified Morbid obesity with BMI of 50.0-59.9, adult (HCC) Morbid obesity Snoring Other dyspnea and respiratory abnormality Fatigue, unspecified type documented in this encounter [facility] note* Diagnosis Class 3 severe obesity without serious comorbidity with body mass index (BMI) of 50.0 to 59.9 in adult, unspecified obesity type (HCC)- [facility] Narrative No data available for this section [facility] No data available for this section [facility] progress note No data available for this section [facility] Outpatient Procedure (Routine) - Pending Review Specialty Diagnoses / Procedures Referred By Terrance t Referred To [facility] Diagnoses Preop testing Snoring Fatigue, unspecified type Morbid obesity with BMI of 50.0-59.9, adult (HCC) Procedures ECG COMPLETE ECG ROUTINE ECG W/LEAST 12 LDS W/I&R Sangeeta Burrell MD [address] [id number] [facility] [address] [place] [address] Referral ID Status Reason Start Date Expiration Date Visits Requested Visits Authorized [id number] Pending Review Auto-Generat ed Referral 10/30/2023 10/29/2024 1 1 * Diagnostic Procedure Only (Routine) - Pending Review Specialty Diagnoses / Procedures Referred By Terrance t Referred To Contact [facility] Diagnoses Preop testing Snoring Fatigue, unspecified type Morbid obesity with BMI of 50.0-59.9, adult (HCC) Procedures US ABD RIGHT UPPER QUADRANT US ABDOMINAL REAL TIME W/IMAGE LIMITED Sangeeta Burrell MD [address] [id number] [facility] [place] [address] Referral ID Status Reason Start Date Expiration Date Visits Requested Visits Authorized [id number] Pending Review Auto-Generat ed Referral 10/30/2023 11/28/2024 1 1 * Consult, Test, Treat (Routine) - Authorized Specialty Diagnoses / Procedures Referred By Terrance carter Referred To Contact Diagnoses Preop testing Snoring Fatigue, unspecified type Morbid obesity with BMI of 50.0-59.9, adult (HCC) Procedures CONSULT TO SLEEP MEDICINE - ADULT OFFICE/OUTPATIENT [facility] 60 MINUTES Sangeeta Burrell MD [address] [id number] Referral ID Status Reason Start Date Expiration Date Visits Requested Visits Authorized [id number] Authorized PCP Requested Referral 10/30/2023 10/29/2024 1 1 * Diagnostic Procedure Only (Routine) - Pending Review Specialty Diagnoses / Procedures Referred By Terrance carter Referred To [facility] Diagnoses Preop testing Snoring Fatigue, unspecified type Morbid obesity with BMI of 50.0-59.9, adult (HCC) Procedures HOME SLEEP APNEA TEST (HSAT) SLEEP STD AIRFLOW HRT RATE&O2 SAT EFFORT UNATT Sangeeta Burrell MD [address] [place] [address] [facility] [address] [phone] Referral ID Status Reason Start Date Expiration Date Visits Requested Visits Authorized [id number] Pending Review Auto-Generat ed Referral 10/30/2023 10/29/2024 1 1 [facility] Summary Purpose Family History No Family [...] section and content) DATE CREATED AUTHOR 07/22/2021 [facility] DATE CREATED AUTHOR AUTHOR'S ORGANIZ ATION 08/26/2021 [facility] DATE CREATED AUTHOR AUTHOR'S ORGANIZ ATION 12/11/2023 [facility] DATE CREATED AUTHOR AUTHOR'S ORGANIZ ATION 06/05/2024 [facility] Patient Care team informatio n (unrecognized section and 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) 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 Specialty Start Date End Date Paolo Ortiz MD [address] [place], [place] [address] [address] PCP - General Family Medicine 11/01/23 Personnel Name: Paolo Ortiz MD Address: Address: [facility] [address]- Source Comments (unrecognize d section and content) In the event this informatio n is protected by the Federal Confidentiality of Alcohol and Drug Abuse Patient Records regulations: The Federal rules restrict any use of the information to criminally investigate or prosecute any alcohol or drug abuse patient.[facility] the event this information is protected by the Federal Confidentiality of Alcohol and Drug Abuse Patient Records regulations: The Federal rules restrict any use of the information to criminally investigate or prosecute any alcohol or drug abuse patient.[facility] the event this information is protected by the Federal Confidentiality of Alcohol and Drug Abuse Patient Records regulations: The Federal rules restrict any use of the information to criminally investigate or prosecute any alcohol or drug abuse patient.[facility] Reason for Visit (unrecogniz ed section [...] BE BASED ON THE PRIMARY CLINICAL RECORDS. [facility] [employer] [facility]. provides no warranty or guarantee of the accuracy or completeness of information in this document.
--- NOTE | 2024-06-14 18:20 | ED.GENADUL1 ---
HPI HPI - General Adult General Chief complaint: Upper Respiratory Infection Stated complaint: sore throat Time Seen by Provider: 06/14/24 17:56 Source: patient Mode of arrival: walk-in History of Present Illness HPI narrative: Patient is a 24-year-old female who returns to the emergency department for continued flulike illness. She reports she was in this emergency department 9 days ago, she had testing for sore throat and cough that was negative and she was discharged home on a Medrol Dosepak with Tesellen Baird for cough. She states she is finished these medications about 5 to 6 days ago and she felt better only briefly. She states now she is feeling worse, all of her symptoms have returned and she feels they are worse than previous. She has not had any objective fevers. She reports vomiting and moderate diarrhea. She states she is most concerned about her sore throat and the diarrhea. She states she has had light green sputum with coughing. She has had nasal congestion. No difficulty swallowing. Related Data Home Medications ?Medication ?Instructions ?Recorded ?Confirmed bupropion HCl 150 mg 24 hr tablet, 150 mg PO DAILY 11/12/23 12/26/23 extended release albuterol sulfate 90 mcg/actuation 2 puff inhalation Q6H PRN 06/14/24 06/14/24 aerosol inhaler shortness of breath or wheezing escitalopram oxalate 20 mg tablet 20 mg PO DAILY 06/14/24 06/14/24 Previous Rx's ?Medication ?Instructions ?Recorded benzonatate 200 mg capsule 200 mg PO TID PRN cough #10 caps 06/05/24 methylprednisolone 4 mg tablets in 4 mg PO DAILY #21 ea 06/05/24 a dose pack (Medrol (Anish)) amoxicillin 500 mg capsule 500 mg PO TID 10 days #30 caps 06/14/24 kemrqkwlhmaxphc-hrcxjgkmrelhhin-PZ 10 ml PO Q6H PRN cold symptoms 06/14/24 2 mg-30 mg-10 mg/5 mL oral syrup #200 mL (Bromfed DM) dexamethasone 4 mg tablet 4 mg PO BID 5 days #10 tabs 06/14/24 ondansetron 4 mg disintegrating 4 mg PO Q6H PRN nausea and 06/14/24 tablet vomiting #12 tabs Allergies Allergy/AdvReac Type Severity Reaction Status Date / Time Sulfa (Sulfonamide Allergy Hives Verified 06/05/24 15:53 Antibiotics) Opioid HPI Opioid Management Most Recent Opioid Data: Last Pain Scale 8 11/12/23 03:06 11/12/23 Review of Systems ROS Constitutional Denies: fever or chills Ears, nose, mouth, and throat Reports: throat pain and nasal congestion Cardiovascular Denies: chest pain Respiratory Reports: cough; Denies: shortness of breath Gastrointestinal Reports: nausea, vomiting and diarrhea Musculoskeletal Denies: back pain Integumentary/Breast Denies: rash Neurological Denies: numbness in extremities or weakness in extremities Hematologic/Lymphatic Denies: easy bruising or easy bleeding PFSH [facility] Social History Little interest or pleasure in doing things: not at all Feeling down, depressed, or hopeless: not at all Exam Narrative Exam Narrative: Gen.: Awake, alert, in no distress Head: Normocephalic, atraumatic ENT: Moist mucous membranes bilateral TMs are bulging, fluid-filled; uvula is midline, no pharyngeal erythema or tonsillar edema. Airway widely open and patent with clear speech. No hoarse or muffled voice. No redness or swelling under the tongue. Respiratory: No respiratory distress, lungs clear bilaterally, no wheezing or rhonchi Cardio: Regular rate and rhythm Gastrointestinal: Abdomen is soft, nondistended and nontender to palpation Extremities: Moves extremities equally, no injuries noted Psych: Normal mood and affect Neuro: No focal neuro deficit Skin: Warm, dry, intact Constitutional Vital Signs, click to edit/add: Last Vital Signs Temp 97.9 F 06/14/24 17:58 Pulse 70 06/14/24 17:58 Resp 18 06/14/24 17:58 BP 150/100 H 06/14/24 17:58 Pulse Ox 96 06/14/24 17:58 O2 Del Method Room Air 06/14/24 17:58 Course Vital Signs Vital signs: Vital Signs Temperature 97.9 F 06/14/24 17:58 Pulse Rate 70 06/14/24 17:58 Respiratory Rate 18 06/14/24 17:58 Blood Pressure 150/100 H 06/14/24 17:58 Pulse Oximetry 96 06/14/24 17:58 Oxygen Delivery Method Room Air 06/14/24 17:58 Temperature 97.9 F 06/14/24 17:58 Pulse Rate 70 06/14/24 17:58 Respiratory Rate 18 06/14/24 17:58 Blood Pressure 150/100 H 06/14/24 17:58 Pulse Oximetry 96 06/14/24 17:58 Oxygen Delivery Method Room Air 06/14/24 17:58 Medical Decision Making MDM Narrative Medical decision making narrative: Lab studies, monoscreen, test are negative. Chest x-ray is unremarkable. Patient with stable vital signs in the ER. She will be treated for pharyngitis based on the duration of her symptoms with any antibiotic, although she appears well-hydrated and nontoxic. Bromfed DM, Decadron, Zofran given for home for symptoms. Follow-up with primary care and return to the ER if symptoms change or worsen. SUPERVISED APC VISIT, PHYSICIAN ATTESTATION: Based on the medical record the care appears appropriate. ? Medical Records Medical records reviewed: Yes I reviewed the patient's medical records Lab Data Lab results reviewed: Yes I reviewed the patient's lab results Labs: Lab Results 06/14/24 Range/Units 18:39 WBC 10.9 (4.0-11.0) 10^3/uL RBC 4.75 (4.20-5.40) 10^6/uL Hgb 14.1 (12.0-16.0) g/dL Hct 42.7 (36.0-48.0) % MCV 89.9 (81.0-99.0) fL MCH 29.7 (26.7-34.0) pg MCHC 33.0 (29.9-35.2) g/dL RDW 14.3 (11.0-15.0) % Plt Count 378 (150-450) 10^3/uL MPV 10.1 (9.5-13.5) fL Neut % (Auto) 61.5 (43.0-75.0) % Lymph % (Auto) 27.8 (20.5-60.0) % Edwards % (Auto) 7.6 (1.7-12.0) % Eos % (Auto) 1.6 (0.9-7.0) % Baso % (Auto) 1.2 (0.2-2.0) % Neut # (Auto) 6.7 H (1.4-6.5) 10^3/uL Lymph # (Auto) 3.0 (1.2-3.8) 10^3/uL Edwards # (Auto) 0.8 (0.3-0.8) 10^3/uL Eos # (Auto) 0.2 (0.0-0.7) 10^3/uL Baso # (Auto) 0.1 (0.0-0.1) 10^3/uL Abs Immat Gran (auto) 0.03 (0.00-0.03) 10^3/uL Imm/Tot Granulo (auto) 0.3 (0.0-0.5) % Sodium 138 (136-145) mmol/L Potassium 4.1 (3.5-5.1) mmol/L Chloride 104 (98-107) mmol/L Carbon Dioxide 27.3 (21.0-32.0) mmol/L Anion Gap 10.8 BUN 6.0 L (7.0-18.0) mg/dL Creatinine 0.87 (0.55-1.02) mg/dL Est GFR ( Amer) >60 (>=60 mL/min/1.73m^2) Est GFR (Non-Af Amer) >60 (>=60 mL/min/1.73m^2) BUN/Creatinine Ratio 6.9 Glucose 105 (74-106) mg/dL Calcium 9.1 (8.5-10.1) mg/dL Serum HCG, Qual Negative (NEGATIVE) Monoscreen Negative (NEGATIVE) Imaging Data Chest x-ray: Attestation: I have reviewed the pertinent imaging results. Discharge Plan Discharge Chief Complaint: Upper Respiratory Infection Clinical Impression: Acute upper respiratory infection, Pharyngitis Patient Disposition: Home, Self-Care Time of Disposition Decision: 19:14 Condition: Good Prescriptions / Home Meds: New amoxicillin 500 mg capsule 500 mg PO TID 10 Days Qty: 30 0RF dexamethasone 4 mg tablet 4 mg PO BID 5 Days Qty: 10 0RF mcmwqgjobnkcrkq-avuyinrip-SE [Bromfed DM] 2-30-10 mg/5 mL syrup 10 ml PO Q6H PRN (Reason: cold symptoms) Qty: 200 0RF ondansetron 4 mg tablet,disintegrating 4 mg PO Q6H PRN (Reason: nausea and vomiting) Qty: 12 0RF No Action methylprednisolone [Medrol (Anish)] 4 mg tablets,dose pack 4 mg PO DAILY Qty: 21 0RF benzonatate 200 mg capsule 200 mg PO TID PRN (Reason: cough) Qty: 10 0RF escitalopram oxalate 20 mg tablet 20 mg PO DAILY albuterol sulfate 90 mcg/actuation HFA aerosol inhaler 2 puff INHALATION Q6H PRN (Reason: shortness of breath or wheezing) bupropion HCl 150 mg tablet extended release 24 hr 150 mg PO DAILY Print Language: Nicaraguan Instructions: Pharyngitis (ED), Upper Respiratory Infection (ED) Referrals: PAOLO ORTIZ [Primary Care Provider] - 1 week
--- NOTE | 2024-06-14 18:27 | XR_ITS ---
The [address] [address] Patient Name: DIONTE ESCAMILLA MRN: [id number] date: 2000 Sex: F Assigned Patient Location: ER Current Patient Location: Accession/Order Number: [id number] Exam Date: 06/14/2024 18:42 Report Date: 06/14/2024 20:56 At the request of: VENECIA DOBSON Procedure: XR chest 1V SINGLE VIEW CHEST: 06/14/2024 6:42 PM EST CLINICAL HISTORY:Cough COMPARISONS: None. TECHNIQUE: Single frontal view of the chest, utilizing portable technique. Portable radiography should be considered a technically compromised study. Strongly consider dedicated PA and lateral chest radiographs, as clinically indicated. FINDINGS: LINES AND TUBES: None appreciated. CARDIAC SILHOUETTE: Within normal limits. MEDIASTINAL AND HILAR CONTOUR: Within normal limits. PULMONARY PARENCHYMA AND PLEURA: No consolidation, edema, effusion, or pneumothorax. OSSEOUS STRUCTURES:Nothing significant. OTHER COMMENTS:None. XR/XR chest 1V IMPRESSION: No acute process. This report was generated with voice recognition software. Effort has been made to ensure accuracy of this report, however, occasional wording errors may persist. Please contact our office with any questions. Electronically authenticated by: JUSTIN VAIL Date: 06/14/2024 20:56
[2024-06-14 18:51] LABS: Basophils Absolute Auto 0.1 10^3/uL (0.0-0.1); Basophils Percent Auto 1.2 % (0.2-2.0); Eosinophils Absolute Auto 0.2 10^3/uL (0.0-0.7); Eosinophils Percent Auto 1.6 % (0.9-7.0); Hematocrit 42.7 % (36.0-48.0); Hemoglobin 14.1 g/dL (12.0-16.0); Immature Granulocytes Abs Auto 0.03 10^3/uL (0.00-0.03); Immature Granulocytes Pct Auto 0.3 % (0.0-0.5); Lymphocytes Percent Auto 27.8 % (20.5-60.0); Mean Corpuscular Hemoglobin 29.7 pg (26.7-34.0); Mean Corpuscular Volume 89.9 fL (81.0-99.0); Mean Platelet Volume 10.1 fL (9.5-13.5); Monocytes Absolute Auto 0.8 10^3/uL (0.3-0.8); Monocytes Percent Auto 7.6 % (1.7-12.0); Neutrophils Absolute Auto 6.7 10^3/uL (1.4-6.5); Neutrophils Percent Auto 61.5 % (43.0-75.0); Platelet Count 378 10^3/uL (150-450); Red Blood Count 4.75 10^6/uL (4.20-5.40); Red Cell Distribution Width 14.3 % (11.0-15.0); White Blood Count 10.9 10^3/uL (4.0-11.0)
[2024-06-14] MEDS: ONDANSETRON 4 MG RAPDIS TABLET SL (18:55)
[2024-06-14] MEDS: DEXAMETHASONE SOD PHOS 10 MG/ML VIAL PO (18:56)
[2024-06-14 18:59] LABS: Anion Gap 10.8; BUN Creatinine Ratio 6.9; Calcium 9.1 mg/dL (8.5-10.1); Carbon Dioxide 27.3 mmol/L (21.0-32.0); Chloride 104 mmol/L (98-107); Estimated GFR (African America >60 (>=60 mL/min/1.73m^2); Estimated GFR (Non-African Ame >60 (>=60 mL/min/1.73m^2); Glucose 105 mg/dL (74-106); Potassium 4.1 mmol/L (3.5-5.1); Sodium 138 mmol/L (136-145)
[2024-06-14 19:02] LABS: HCG Qualitative NEGATIVE (NEGATIVE); Internal Control Within Normal Limits; Mono Screen NEGATIVE (NEGATIVE)
== END 2024-06-14 19:36 | disposition home or self-care (01) ==
PROVIDERS: Physician Assistant; Emergency Provider Emergency Medicine; PCP Family Medicine
DX: J02.9 Acute pharyngitis, unspecified (principal); J06.9 Acute upper respiratory infection, unspecified
CPT/HCPCS: 36415; 71045; 80048; 84703; 85025; 86308; 99284; J1100; Q0162

== ENCOUNTER 2024-09-12 20:35 | Emergency (ER) | payer OTHER, SELFPAY ==
[2024-09-12 20:37] VITALS: BP 158/106; PULSE 91; TEMP 36.7; O2SAT 99; BMI 49.9
--- OUTSIDE RECORDS SUMMARY | 2024-09-12 20:44 | XMS_ITS | CCD ---
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 Name Role Phone LOS, DR CHAD Roberts Primary Care Unavailable YANELIS, DR HOLLINS Attending Unavailable YANELIS, DR HOLLINS Consulting Unavailable YANELIS, DR HOLLINS Admitting Unavailable LOS, DR CHAD Roberts Primary Care Unavailable LOS, DR CHAD Roberts Admitting Unavailable LOS, DR CHAD Roberts Attending Unavailable LOS, DR CHAD Roberts Consulting Unavailable NONE, XXXX Primary Care Physician Unavailab Paolo Wilks Primary Care Physician Unavailable Primary Care Provider UnavailPaolo Villavicencio MD Primary Care Provider [phone] SANGEETA BURRELL Attending Unavailable HUY ESCOTO Attending Unavailable PAOLO ORTIZ Primary Care Unavailable SANGEETA BURRELL Referring Unavailable PAOLO ORTIZ Primary Care Unavailable SHERYL LÓPEZ Attending Unavailable PAOLO ORTIZ Primary Care Unavailable RICK CARPOI Attending Unavailable MD Paolo Ortiz Attending Unavailable MD Paolo Ortiz Attending Unavailable MD Paolo Ortiz Attending Unavailable MD Paolo Ortiz Attending Unavailable MD Paolo Ortiz Attending Unavailable CRISTINO DIAZ Attending Unavailable CRISTINO DIAZ Attending Unavailable CRISTINO DIAZ Attending Unavailable CRISTINO DIAZ Attending Unavailable CRISTINO DIAZ Attending Unavailable CRISTINO DIAZ Attending Unavailable CRISTINO DIAZ Attending Unavailable MD Paolo Ortiz Attending Unavailable Yolanda Luna Attending Unavailable Yolanda Luna Attending Unavailable MD Paolo Ortiz Attending Unavailable Allergies Allergy Classification Reported Allergen(s) Allergy Type Date of Onset Reaction(s) Facility (1 source) Sulfonamides (Antibiotic) Drug allergy (disorder) 07-12-2013 [facility] Repository (6 sources) Sulfacetamide; Translations: [sodium sulfacetamide ophthalmic] Drug Allergy Rash [facility] Medications Current Medications Medication Drug Class(es) Dates Sig (Normalized) Sig (Original) Albuterol (Eqv-ProAir HFA) 90 mcg/inh inhalation aerosol (4 sources) Start: 08-18-2023 Albuterol (Eqv-ProAir HFA) 90 mcg/inh inhalation aerosol See Instructions, 8.5 EA, Refill(s) 0, INHALE 2 PUFFS BY MOUTH EVERY 6 HOURS, [facility], 168, cm, 07/27/23 7:24:00 EST, Height/Length Dosing, 139.9, kg, 07/27/23 7:24:00 EST, Weight Dosing Start Date: 08/18/23 Status: Ordered 24 hr buPROPion hydrochloride 300 mg extended release oral tablet (4 sources) Aminoketone Start: 09-11-2023 take 1 tablet by mouth every twenty-four hours buPROPion 300 mg/24 hours ER Tab 300 mg = 1 tab(s), Oral, q24hr, # 90 tab(s), Refills(s) 1, Pharmacy: [facility]/pharmacy #[id number], 168, cm, 09/11/23 8:16:00 EDT, Height/Length [...] 50.0-59.9, adult (HCC)] Onset: 11-15-2023 Chronic Other nutritional; endocrine; and [...] Results Test Name Value Interpretation Reference Range Facility Ambulatory Visit Summaryon 1 08-04-2023 Ambulatory Visit [...] PM EST With: Paolo Ortiz MD Where: [place] [id number]- Medications What How Much When Instructions Unchanged [...] for choosing us for your care. Normal [facility] Medicine Office/Clini c Noteon 06-03-2024 Family Medicine [...] do. Patient understands. Gave the number to psychologist research assistant that may be able to help with [...] malignant neoplasm of female breast: Grandparent. Normal [facility] Comment on above: Result Comment: [...] documented 300 (more content not included)... 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 Patient has not been taking her medication. Patient wants to try something else. 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 Ordered: [facility] External Ambulatory Referral 2. Anxiety (F41.9: Anxiety disorder, unspecified) As above Ordered: [facility] External Ambulatory Referral 3. Excessive dietary caloric intake (R63.2: Polyphagia) Will refer back to bariatric surgery. Ordered: [facility] External Ambulatory Referral 4. BMI 50.0-59.9, adult (Z68.43: Body mass index [BMI] 50.0-59.9, adult) BMI education added Ordered: Body Mass Index (BMI) documented 3008F Current tobacco smoker 1034F Depression Screening Negative 3352F [facility] External Ambulatory Referral Most recent diastolic blood [...] tobacco smoker 1034F Depression Screening Negative 3352F [facility] External Ambulatory Referral Most recent diastolic blood [...] q24hr, # 90 tab(s), Refills(s) 1, Pharmacy: [facility]/pharmacy #[id number], 168, cm, 09/11/23 8:16:00 EDT, Height/Length Dosing, 142.5, kg, 09/11/23 8:16:00 EDT, Weight Dosing escitalopram, 10 mg = 1 tab(s), Oral, Daily, # 90 tab(s), Refills(s) 0, Pharmacy: [facility]/pharmacy #[id number], 168, cm, 03/18/24 17:33:00 EDT, Height/Length [...] malignant neoplasm of female breast: Grandparent. Normal [facility] Comment on above: Result Comment: Elec tronically Signed By: Derik PRADHAN, Paolo Macario.gisel\Date and Time Signed: 03/18/24 17:51 EDT ED Note-Physicianon 12-27-19 ED Note-Physician [id number] .00TIFF Normal [facility] Video Visit - Telehealtho n 12-12-2023 Video Visit - Telehealth Start Time 4pm Stop Time 4:42pm Patient Reported Issues No qualifying data available. CSSRS Risk Assessment No qualifying data available. CSSRS Frequent Screener No qualifying data available. CSSRS Screen No qualifying data available. Mini Mental State Examination No qualifying data available. Diagnosis/Assessment/ Treatment Plan 1. 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 Patient remains uncomfortable with her current psychotropic medication, but her PCP recommended that she have a psychiatric evaluation. Patient has decided to undergo gastric bypass surgery, and needs to complete a sleep apnea test, blood work, and remain alcohol and nicotine free. 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 We began reviewing her Timeline of Significant Life Events. She talked about growing up with her mother who had significant drug issues (heroin and meth). Her mother currently has a warrant out for her arrest due to child support. 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 TREATMENT PLAN: GOAL: Patient [...] Level of Trust/Counseling Relationship: Positive Level of Effort/Participation: Good Level of Overall Progress: No significant [...] 1 tab(s), (more content not included)... Normal [facility] Comment on above: Result Comment: Elec tronically Signed By: EMILY [facility] HOSPITALAlicia, CRISTINO\.gisel\Date and Time Signed: 12/12/23 12:42 EDT CNPNon 12-11-2023 CNPN Telephone (WIQ) DIONTE ESCAMILLA ([id number]) 2000 F Date Time Provider Department 12/11/23 MADDIE DSOUZA WIQ During your visit today, we recorded the following information about you: Maddie Dsouza, [facility] 12/11/2023 8:08 AM Signed Smoking Cessation Navigation Outcome of contact: Left Message Comments: A voicemail has been left for this patient regarding Tobacco Cessation support options. If this patient has any further questions they can email us at [email or web address] or call us at [phone]. [employer] [employer] Supervisor/Smoking Cessation Navigator: [facility] Allergies As of Date: 12/11/2023 (Not on File) Date Reviewed: 12/07/2023 Reviewed by: Huy Escoto PSYD - Fully Assessed Reason for Visit: Smoking Cessation [1387] Problem List As Of Date: 12/11/2023 (None) Encounter Status:Closed by MADDIE DSOUZA on 12/11/23 [facility] ED Note-Physicianon 11-16-19 ED Note-Physician [id number]. 00TIFF [facility] RAD - MISCon 11-16-2023 RAD - MISC [id number] .00TIFF Anastasiia [facility] Video Visit - Telehealtho n 11-06-2023 Video Visit - Telehealth Start Time 1:58pm Stop Time 3 PM Patient Reported Issues No qualifying data available. CSSRS Risk Assessment No qualifying data available. CSSRS Frequent Screener No qualifying data available. CSSRS Screen No qualifying data available. Mini Mental State Examination No qualifying data available. Diagnosis/Assessment/ Treatment Plan 1. 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 Patient did have a medical appointment about gastric bypass surgery, and she is considering her options. 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 Reviewed Fair Fighting Rules and out with [...] Level of Trust/Counseling Relationship: Improving Level of Effort/Participation: Good Level of Overall Progress: No significant [...] GERD (ga (more content not included)... Normal [facility] Comment on above: Result Comment: Elec tronically Signed By: EMILY [facility]\.gisel\Date and Time Signed: 11/06/23 15:03 EDT Video Visit - Telehealtho n 11-01-2023 Video Visit - Telehealth Start Time 8am Stop Time 8:54am Patient Reported Issues No qualifying data available. CSSRS Risk Assessment No qualifying data available. CSSRS Frequent Screener No qualifying data available. CSSRS Screen No qualifying data available. Mini Mental State Examination No qualifying data available. Diagnosis/Assessment/ Treatment Plan 1. Unspecified mood [affective] disorder (F39: Unspecified mood [affective] disorder) Ordered: TELEHEALTH Psych Diagnostic Eval W/O Med Mgmt 22898 Assessment and Plan No qualifying data available. 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 Reviewed relevant social history information. When asked [...] Level of Trust/Counseling Relationship: Improving Level of Effort/Participation: Good Level of Overall Progress: No significant [...] Historical No qualifying data Procedure/Surgical History Surgery. Nv (more content not included)... Normal [facility] Comment on above: Result Comment: [...] No qualifying data available. Therapeutic Survey Comments: [facility] Needs No qualifying data available. Methodist/Spiritual/C ultural Comments: Financial Situation No qualifying data available. Living and Resources No qualifying data available. Legal Status and History No qualifying data available. Diagnosis/Assessment/ Treatment Plan 1. Depression (F32.A: Depression, unspecified) Assessment [...] 09/11/2023 medical appointment, Paolo Ortiz MD reported: ..Concetta is a 23 year old female presenting [...] of Anxiety: (Most responses were Sometimes/Often) 1. [place] concerned about things other people consider unimportant. 2. Have difficulty controlling worries. 3. Feel restless or on-edge. 4. Feel irritable, most of the time. 5. Feel extremely tense or unable to relax. 8. [place] fearful of things, or situations (animals, heights, storms, insects, etc.). 12. Make unusual movements for no apparent reason (blinking, head jerking, etc.) 13. Make unusual sounds/noises (coughing, throat clearing, sniffling, grunting, etc.) 14. Try to avoid contact with strangers; abnormally shy. 15. Feel excessively shy in social situations. 16. When put in uncomfortable social situations, I fr (more content not included)... Normal [facility] Comment on above: Result Comment: Elec tronically Signed By: EMILY GALVAN, CRISTINO\.br\Date and Time Signed: 10/26/23 11:03 EDT Ambulatory Visit Summaryon 0 10-12-2023 Ambulatory Visit Summary ANDIDIONTE Cast :2000 Visit Date:10/12/2023 Ambulatory Visit Instructions Your Diagnosis Depression Your Care Team Attending Physician - CRISTINO VARELA Primary Care Physician - Paolo Ortiz MD This Is Your Medications List albuterol (Albuterol (Eqv-ProAir HFA) 90 mcg/inh inhalation aerosol) buPROPion (buPROPion 300 mg/24 hours ER Tab) Procedures Performed Surgery. What to do next Scheduled Follow-Up Appointments Monday 9:30 AM EDT With: Paolo Ortiz MD Where: [facility] [place] Normal [facility] Ambulatory Visit Summaryon 0 09-11-2023 [...] EDT With: Derik PRADHAN, Paolo Beltran Where: [facility] [place] Invalid Interpretation Code Class 3 obesity [facility] Medicine Office/Clini c Noteon 09-11-2023 Family Medicine [...] refer to Bariatric surgery for consult. Ordered: [facility] External Ambulatory Referral [facility] Internal Ambulatory Referral 2. Depression (F32.A: Depression, unspecified) - Will increase the wellbutrin. - Will send to counseling. - Follow up in 6 weeks. 3. BMI 50.0-59.9, adult (Z68.43: Body mass index [BMI] 50.0-59.9, adult) Discussed BMI and the needs for bariatric surgery at this BMI level. Ordered: Body Mass Index (BMI) documented 3008F Current tobacco smoker 1034F Depression Screening Positive 3354F [facility] External Ambulatory Referral [facility] Internal Ambulatory Referral Influenza immunization status assessed 1030F Most recent diastolic blood pressure 80-89 mm Hg 3079F Systolic BP 130-139 mm Hg (Most Recent) 3075F 4. Class 3 obesity (E66.01: Morbid (severe) obesity due to excess calories) Diet and exercise advised. Ordered: Body Mass Index (BMI) documented 3008F Current tobacco smoker 1034F Depression Screening Positive 3354F [facility] External Ambulatory Referral [facility] Internal Ambulatory Referral Influenza immunization status assessed 1030F Most recent diastolic blood pressure 80-89 mm Hg 3079F Systolic BP 130-139 mm Hg (Most Recent) 3075F 5. Vaping-related disorder (U07.0: Vaping-related disorder) Please stop vaping. Ordered: Body Mass Index (BMI) documented 3008F Current tobacco smoker 1034F Depression Screening Positive 3354F [facility] External Ambulatory Referral [facility] Internal Ambulatory Referral Influenza immunization status assessed 1030F Most recent diastolic blood pressure 80-89 mm Hg 3079F Systolic BP 130-139 mm Hg (Most Recent) 3075F Orders: buPROPion, 300 mg = 1 tab(s), Oral, q24hr, # 90 tab(s), Refills(s) 1, Pharmacy: [facility]/pharmacy #[id number], 168, cm, 09/11/23 8:16:00 EDT, Height/Length [...] malignant neoplasm of female breast: Grandparent. Normal [facility] Comment on above: Result Comment: [...] numbers. This can be done either in [place] ([place] or metric measurements. Note that charts and online BMI calculators are available to help you find your BMI quickly and easily without having to do these calculations yourself. To calculate your BMI in [place] ([place] measurements: 1. Measure your weight in [...] for Disease Control and Prevention: www.cdc.gov ? [place] Heart Association: www.heart.org ? National Heart, Lung, and Blood [place]: www.nhlbi.nih.gov Summary ? Body mass index (BMI) is a number that is calculated from a person's weight and height. ? BMI may help estimate how much of a person's weight is composed of fat. BMI can help identify those who may be at higher risk for certain medical problems. ? BMI can be measured using [place] measurements or metric measurements. ? BMI charts are used to identify whether you are underweight, normal weight, overweight, or obese. This information is not intended to replace advice given to you by your health care provider. Make sure you discuss any questions you have with your health care provider. Document Revised: 03/11/2020 Document Reviewed: 01/17/2020 [employer] Patient Education ? 2022 General Blood. Normal [facility] Physician Referralon 024 Physician Referral [id number] .00TIFF [facility] PAP ACOG PANEL 2: 20 to 29on 08-25-2021 . . [facility] Comment on above: Performed By: #### 4 [id number] #### [facility] [address] [place] [address] [address] Mariah Garcia Age Gdln ACOG Testing - [facility] Comment on above: Performed By: #### 4 [id number] #### [facility] [address] [place] [address] [address] Mariah Garcia DIAGNOSIS: Comment [facility] Comment on above: Result Comment: NEGA TIVE FOR INTRAEPITHELIAL LESION OR MALIGNANCY. Performed By: #### 4 [id number] #### [facility] [address] [place] [address] [address] Mariah Garcia Methodology: Comment [facility] Comment on above: Result Comment: This liquid based ThinPrep(R) pap test was screened with the use of an image guided system. Performed By: #### 4 [id number] #### [facility] [address] [place] [address] [address] Mariah Garcia Note: Comment [facility] Comment on above: Result Comment: The Pap smear is a screening test designed to aid in the detection of premalignant and malignant conditions of the uterine cervix. It is not a diagnostic procedure and should not be used as the sole means of detecting cervical cancer. Both false-positive and false-negative reports do occur. . Performed By: #### 4 [id number] #### [facility] [address] [place] [address] Dr. Mariah Garcia Performed by: Comment Normal [facility] Comment on above: Result Comment: Jesse Burrell, Nutrition Coordinator (ASCP) Performed By: #### 4 [id number] #### [facility] [address] [place] [address] Dr. Mariah Garcia Reflex Criteria: Comment Normal [facility] Comment on above: Result Comment: The HPV DNA reflex criteria were not met with this specimen result therefore, no HPV testing was performed. . Performed By: #### 4 [id number] #### [facility] [address] [place] [address] Dr. Mariah Garcia Specimen adequacy: Comment Normal [facility] Comment on above: Result Comment: Sati sfactory for evaluation. Endocervical and/or squamous metaplastic cells (endocervical component) are present. Performed By: #### 4 [id number] #### [facility] [address] [place] [address] Dr. Mariah Garcia CHLAMYDIA/GONOCOCCUS BIRGIT (SW AB/URINE/PAPon 08-23-2021 Chlamydia trachomatis, BIRGIT Negative Normal [facility] Comment on above: Performed By: #### C T/NGNA #### [facility] [address] [place] [address] Dr. Mariah Garcia Neisseria gonorrhoeae, BIRGIT Negative Normal Negative [facility] Comment on above: Performed By: #### C T/NGNA #### [facility] [address] [place] [address] Dr. Mariah Garcia VAGINITIS/VAGINOSIS DNA PROB Bin 08-22-2021 Emily species Negative Normal Negative [facility] Comment on above: Performed By: #### V AGINT #### [facility] [address] [place] [address] Dr. Mariah Garcia Gardnerella vaginalis Negative Normal Negative [facility] Comment on above: Performed By: #### V AGINT #### [facility] [address] [place] [address] Dr. Mariah Garcia Trichomonas vaginalis Negative Normal Negative [facility] Comment on above: Performed By: #### V AGINT #### [facility] [address] [address] [address] Mariah Garcia Covid-19 PCR (CVDTB)on SARS-CoV-2 (COVID-19) RNA BIRGIT+probe Ql (Unsp spec) Not detected Normal NOT DETECTED [facility] Comment on above: Result Comment: This test is not yet approved or cleared by the [place] FDA. When there are no FDA-approved or cleared tests available, and other criteria are met, FDA can make tests available under an emergency access mechanism called an Emergency Use Authorization (EUA). The EUA for this test is supported by the [place] of Health and Human Service's (HHS's) declaration [...] SARS-CoV-2. Performed By: #### C VDTBH #### [facility] [address] [place], [place] [address] Dr. Mariah Garcia XR ankle LT min 3V*on 2020 XR ankle LT min 3V* [facility] [place] [address] XRay Report Signed Patient: Dionte Escamilla MR#: [id number] 8 : 2000 Acct:[id number] Age/Sex: 20 / F ADM Date: 12/10/20 Loc: ER Room: Type: [facility] ER Attending Dr: Ordering Provider: [...] Jj Kennedy M.D.12/10/2020 8:58 AM Dictation Location: [place] [address] Transcribed By: [facility] 12/10/20 0858 Dictated By: Jj Kennedy DO 12/10/20 0857 Signed By: 12/10/2058 [facility] Vital Signs Date Time Vital Sign Value Performing Clinician Facility 10-30-2023 10:43-0400 Body height 167.6 cm Sangeeta Burrell MD Work Phone: [facility] 10-30-2023 10:43-0400 Body mass index (BMI) [Ratio] 51.17 kg/m2 Sangeeta Burrell MD Work Phone: [facility] 10-30-2023 10:43-0400 Body weight 143.79 kg Sangeeta Burrell MD Work Phone: [facility] 12-26-2022 22:50-0400 Body temperature 98.06 [degF] Kaylinn Dokken [facility] 12-26-2022 22:50-0400 Diastolic blood pressure 99 mm[Hg] Kaylinn Dokken [facility] 12-26-2022 22:50-0400 Heart rate 94 /min Kaylinn Dokken [facility] 12-26-2022 22:50-0400 Respiratory rate 16 /min ylinn Dokken [facility] 12-26-2022 22:50-0400 SaO2% (BldA) [Mass fraction] 99 % Kaylinn Dokken [facility] 12-26-2022 22:50-0400 Systolic blood pressure 147 mm[Hg] Kaylinn Dokken [facility] Encounters Encounter Date Encounter Type Care Provider Facility Start: 08-05-2024 End: 08-05-2024 ambulatory MD Paolo Ortiz Facility:[facility] [place] [facility] Start: 06-03-2024 End: 06-03-2024 ambulatory MD Paolo Ortiz Facility:[facility] [place] [facility] Start: 05-06-2024 End: 05-06-2024 ambulatory MD Paolo Ortiz Facility:[facility] [place] [facility] Start: 04-29-2024 End: 04-29-2024 ambulatory MD Paolo Ortiz Facility:[facility] [place] [facility] Start: 03-18-2024 End: 03-18-2024 ambulatory MD Paolo Ortiz [facility] [place] [facility] Start: 02-13-2024 End: 02-13-2024 ambulatory Yolanda L Jeremy Facility:[facility] [place] [facility] Start: 02-12-2024 End: 02-12-2024 ambulatory Yolanda L Jeremy Facility:[facility] [place] [facility] Start: 01-05-2024 ambulatory CRISTINO DIAZ Facility :[facility] Start: 12-11-2023 [facility] [place] Comment on above: Smoking Cessation Start: 12-07-2023 End: 12-07-2023 ambulatory CRISTINO DIAZ Facility:[facility] Start: 12-07-2023 End: 12-07-2023 Patient encounter procedure CRISTINO DIAZ [facility] Start: 12-06-2023 End: 12-06-2023 ambulatory HUY ESCOTO Facility:[facility] Start: 11-15-2023 End: 11-16-2023 ambulatory SANGEETA BURRELL Facility:[facility] Start: 11-15-2023 Encounter for other preprocedural examination SANGEETA BURRELL [facility] Start: 11-13-2023 End: 11-13-2023 ambulatory SHERYL LÓPEZ Facility:[facility] Start: 11-06-2023 End: 11-06-2023 ambulatory CRISTINO DIAZ Facility:[facility] Start: 11-06-2023 End: 11-06-2023 Patient encounter procedure CRISTINO DIAZ [facility] Start: 11-01-2023 End: 11-01-2023 Admission to same day surgery center Rick Carpio MD Work Phone: General Surgery Comment on above: Class 3 severe obesi ty without serious comorbidity with body mass index (BMI) of 50.0 to 59.9 in adult, unspecified obesity type (HCC) (Primary Dx) Start: 11-01-2023 End: 11-01-2023 ambulatory RICK CARPIO Facility:[facility] Start: 11-01-2023 End: 11-01-2023 Telemedicine consultation with patient Rick Carpio MD Work Phone: General Surgery Start: 10-30-2023 End: 10-30-2023 ambulatory SANGEETA BURRELL Facility:[facility] Start: 10-30-2023 End: 10-30-2023 Patient encounter procedure Sangeeta Burrell MD Work Phone: Endocrinology BMI Comment on above: Preop testing (Prima ry Dx); Morbid obesity with BMI of 50.0-59.9, adult (HCC); Snoring; Fatigue, unspecified type Start: 10-30-2023 End: 10-30-2023 Patient encounter status Sangeeta Burrell MD Work Phone: [facility] Work Phone: Start: 10-30-2023 End: 10-30-2023 Telemedicine consultation with patient Sangeeta Burrell MD Work Phone: Endocrinology BMI Start: 10-27-2023 End: 10-27-2023 ambulatory CRISTINO DIAZ Facility:[facility] Start: 10-27-2023 End: 10-27-2023 Patient encounter procedure CRISTINO DIAZ [facility] Start: 10-23-2023 End: 10-23-2023 ambulatory MD Paolo Ortiz Facility:[facility] Start: 10-12-2023 End: 10-12-2023 ambulatory CRISTINO DIAZ Facility:[facility] Start: 10-12-2023 End: 10-12-2023 Patient encounter procedure CRISTINO DIAZ [facility] Start: 09-29-2023 ambulatory CRISTINO DIAZ Facility :[facility] Start: 09-19-2023 ambulatory MD Paolo Ortiz Facility :[facility] Start: 09-11-2023 End: 09-11-2023 ambulatory MD Paolo Ortiz Facility:[facility] Luz santos Start: 12-26-2022 End: 12-27-2022 Emergency department patient visit Dinesh Whatley [facility] Start: 08-20-2021 End: 08-20-[address] CHAD STRONG Facility:[facility] Start: 04-06-2021 End: 04-06-[address] CHAD STRONG Facility: Procedures Date Procedure Procedure Detail Performing Clinician None (qualifier value) Yamilka [facility] Surgery (qualifier value) ROXANA DIAZ Comment on above: left foot Plan of Treatment Date Care Activity Detail Author Start: 03-03-2024 Influenza vaccination Influenz a Vaccine (Season Ended) [facility] Start: 01-22-2024 End: 01-22-2024 Admission to same day surgery center 01/22/2024 8:00 AM EDT [facility] [address] [place], [place] [id number] D[address] [place], [place] [id number] Red/Gutnick/6mon/Buckey e General Surgery Comment on above: Red/Gutnick/6mon/Buc keye Start: 01-17-2024 End: 01-17-2024 ambulatory 01/17/2024 3:00 PM EDT [facility] [address] [place] [address] Britt Villalobos MD [address] [place] [address] Preop testing [Z01.818] Neurology Comment on above: Preop testing [Z01.8 18] Start: 12-29-2023 End: 12-29-2023 Patient encounter procedure Radiology Comment on above: Preop testing [Z01.8 18] no spl, chkd jmg Pre op testing [Z01.818] Start: 12-26-2023 End: 12-26-2023 Nursing evaluation of patient and report 12/26/2023 10:00 AM EDT Nurse Visit Cardiology [address] [place] [address] Ana, Nurse Card [facility] [address] [place] [address] Preop testing [Z01.818] Cardiology Comment on above: Preop testing [Z01.8 18] Start: 12-13-2023 End: 12-13-2023 Admission to same day surgery center 12/13/2023 9:30 AM EDT [facility] [address] [place] [address] Eloisa Fam, CORNELIA [address] [facility] [address] [place] [address] Red/Gutnick/6mon/Buckey e General Surgery Comment on above: Red/Gutnick/6mon/Buc keye Start: 11-30-2023 End: 11-30-2023 Patient encounter procedure 11/30/2023 12:30 PM EDT [facility] BMI [address] [place] [address] [place] [address] Red/Gutnick/6mon/Buckey e Endocrinology BMI Comment on above: Red/Gutnick/6mon/Buc keye Start: 11-16-2023 End: 11-16-2023 Patient encounter procedure 11/16/2023 10:00 AM EDT Office Visit Neurology [address] [place] [address] Preop testing [Z01.818] Neurology Comment on above: Preop testing [Z01.8 18] Start: 11-03-2023 End: 11-03-2023 ambulatory 11/03/2023 11:30 AM EDT Results Only [facility] [address] [place] [address] [place] [address] [facility] Start: 11-01-2023 End: 11-01-2023 Admission to same day surgery center 11/01/2023 12:40 PM EDT [facility] [address] [place] [address] [place] [address] [place] [address] Red/Carlos/6mon/Gauri e General Surgery Comment on above: Red/Carlos/6mon/Buc keye Start: 10-30-2023 End: 10-29-2024 25-hydroxyvitamin D3 [Mass/volume] in Serum or Plasma VITAMIN D 25 HYDROXY Lab Routine Preop testing Snoring Fatigue, unspecified type Morbid obesity with BMI of 50.0-59.9, adult (HCC) Expected: 10/30/2023, Expires: 10/29/2024 [facility] Comment on above: Expected: 10/30/2023 , Expires: 10/29/2024 Start: 10-30-2023 End: 10-29-2024 CBC panel - Blood by Automated count COMPLETE BLOOD COUNT Lab Routine Preop testing Snoring Fatigue, unspecified type Morbid obesity with BMI of 50.0-59.9, adult (HCC) Expected: 10/30/2023, Expires: 10/29/2024 [facility] Comment on above: Expected: 10/30/2023 , Expires: 10/29/2024 Start: 10-30-2023 End: 10-29-2024 Cobalamin (Vitamin B12) [Mass/volume] in Serum or Plasma VITAMIN B12 Lab Routine Preop testing Snoring Fatigue, unspecified type Morbid obesity with BMI of 50.0-59.9, adult (HCC) Expected: 10/30/2023, Expires: 10/29/2024 [facility] Comment on above: Expected: 10/30/2023 , Expires: 10/29/2024 Start: 10-30-2023 End: 10-29-2024 Comprehensive metabolic 2000 panel - Serum or Plasma COMPREHENSIVE METABOLIC PANEL Lab Routine Preop testing Snoring Fatigue, unspecified type Morbid obesity with BMI of 50.0-59.9, adult (HCC) Expected: 10/30/2023, Expires: 10/29/2024 [facility] Comment on above: Expected: 10/30/2023 , Expires: 10/29/2024 Start: 10-30-2023 End: 10-29-2024 Folate [Mass/volume] in Serum or Plasma FOLATE, SERUM Lab Routine Preop testing Snoring Fatigue, unspecified type Morbid obesity with BMI of 50.0-59.9, adult ([facility]) Expected: 10/30/2023, Expires: 10/29/2024 [facility] Comment on above: Expected: 10/30/2023 , Expires: 10/29/2024 Start: 10-30-2023 End: 10-29-2024 Hemoglobin A1c in Blood HEMOGLOBIN A1C Lab Routine Preop testing Snoring Fatigue, unspecified type Morbid obesity with BMI of 50.0-59.9, adult (HCC) Expected: 10/30/2023, Expires: 10/29/2024 [facility] Comment on above: Expected: 10/30/2023 , Expires: 10/29/2024 Start: 10-30-2023 End: 10-29-2024 Iron and Iron binding capacity panel - Serum or Plasma IRON AND TIBC Lab Routine Preop testing Snoring Fatigue, unspecified type Morbid obesity with BMI of 50.0-59.9, adult (HCC) Expected: 10/30/2023, Expires: 10/29/2024 [facility] Comment on above: Expected: 10/30/2023 , Expires: 10/29/2024 Start: 10-30-2023 End: 10-29-2024 Lipid 1996 panel - Serum or Plasma LIPID PANEL BASIC Lab Routine Preop testing Snoring Fatigue, unspecified type Morbid obesity with BMI of 50.0-59.9, adult (HCC) Expected: 10/30/2023, Expires: 10/29/2024 [facility] Comment on above: Expected: 10/30/2023 , Expires: 10/29/2024 Start: 10-30-2023 End: 10-29-2024 Parathyrin.intact [Mass/volume] in Serum or Plasma PTH INTACT Lab Routine Preop testing Snoring Fatigue, unspecified type Morbid obesity with BMI of 50.0-59.9, adult (HCC) Expected: 10/30/2023, Expires: 10/29/2024 [facility] Comment on above: Expected: 10/30/2023 , Expires: 10/29/2024 Start: 10-30-2023 End: 10-29-2024 Thyrotropin [Units/volume] in Serum or Plasma THYROID STIMULATING HORMONE Lab Routine Preop testing Snoring Fatigue, unspecified type Morbid obesity with BMI of 50.0-59.9, adult (HCC) Expected: 10/30/2023, Expires: 10/29/2024 [facility] Comment on above: Expected: 10/30/2023 , Expires: 10/29/2024 Start: 10-30-2023 End: 01-29-2024 VITAMIN B1 (THIAMINE), WHOLE BLOOD VITAMIN B1 (THIAMINE), WHOLE BLOOD Lab Routine Preop testing Snoring Fatigue, unspecified type Morbid obesity with BMI of 50.0-59.9, adult (HCC) Expected: 10/30/2023, Expires: 01/29/2024 [facility] Comment on above: Expected: 10/30/2023 , Expires: 01/29/2024 Start: 07-03-2023 Behavioral Health Screening Behavioral Health Screening [facility] Start: 03-03-2023 Covid-19 Vaccine () Covid-19 Vaccine () [facility] Start: 04-14-2021 Urine microalbumin profile DTaP,Tdap,Td Vaccine (7 - Td or Tdap) [facility] Start: 02-19-2020 Screening for malign ant neoplasm of cervix [facility] Start: 2017 Hepatitis C screening Hepatitis C Sc reening [facility] Start: 2017 HIV screening HIV Screening [facility] Start: 2013 Peds To Adult Transition Annual Assessment Peds To Adult Transition Annual Assessment [facility] Start: 2011 Peds To Adult Transition Initial Discussion Peds To Adult Transition Initial Discussion [facility] End: 10-29-2024 ECG COMPLETE ECG COMPLETE ECG Routine Preop testing Snoring Fatigue, unspecified type Morbid obesity with BMI of 50.0-59.9, adult (HCC) 1 Occurrences starting 10/30/2023 until 10/29/2024 [facility] Comment on above: 1 Occurrences starti ng 10/30/2023 until 10/29/2024 End: 10-29-2024 HOME SLEEP APNEA TEST (HSAT) HOME SLEEP APNEA TEST (HSAT) Procedures Routine Preop testing Snoring Fatigue, unspecified type Morbid obesity with BMI of 50.0-59.9, adult (HCC) 1 Occurrences starting 10/30/2023 until 10/29/2024 [facility] Work Phone: Comment on above: 1 Occurrences starti ng 10/30/2023 until 10/29/2024 End: 11-28-2024 US Abdomen RUQ US ABD RIGHT UPPER QUADRANT Radiology Routine Preop testing Snoring Fatigue, unspecified type Morbid obesity with BMI of 50.0-59.9, adult (HCC) 1 Occurrences starting 10/30/2023 until 11/28/2024 [facility] Comment on above: 1 Occurrences starti ng 10/30/2023 until 11/28/2024 End: 11-28-2024 XR Chest PA and Lateral XR CHEST 2V FRONTAL/LAT Radiology Routine Preop testing Snoring Fatigue, unspecified type Morbid obesity with BMI of 50.0-59.9, adult (HCC) 1 Occurrences starting 10/30/2023 until 11/28/2024 [facility] Comment on above: 1 Occurrences starti ng 10/30/2023 until 11/28/2024 Immunizations Immunization Date Immunization Notes Care Provider Paulino garcía 06-02-2015 influenza virus vacc ine, unspecified formulation Sangeeta Burrell MD Work Phone: [facility] Payers Date Payer Category Payer Medicaid [id number] 1999 Unknown [id number] 2.16.84 0.1.168757.3.579.2.593 1999 Unknown [id number] 2.16.84 0.1.641584.3.579.2.593 1999 Unknown [id number] 2.16.8 40.1.812680.3.579.2.727 1999 Unknown [id number] 2.16.8 40.1.313503.3.579.2.727 1999 Unknown [id number] 2.16.8 40.1.676463.3.579.2.727 1999 Unknown [id number] 2.16.8 40.1.697298.3.579.2.727 1999 Unknown [id number] 2.16.8 40.1.039604.3.579.2.727 1999 Unknown [id number] 2.16.8 40.1.895463.3.579.2.727 1999 Unknown [id number] 2.16.8 40.1.097014.3.579.2.727 1999 Unknown [id number] 2.16.8 40.1.381451.3.579.2.727 1999 Unknown [id number] 2.16.8 40.1.535210.3.579.2.727 1999 Unknown [id number] 2.16.8 40.1.438231.3.579.2.727 1999 Unknown [id number] 2.16.8 40.1.815628.3.579.2.727 1999 Unknown [id number] 2.16.8 40.1.714503.3.579.2.727 1999 Unknown [id number] 2.16.8 40.1.510250.3.579.2.727 1999 Unknown [id number] 2.16.8 40.1.802591.3.579.2.727 1999 Unknown [id number] 2.16.8 40.1.453219.3.579.2.727 1999 Unknown [id number] 2.16.8 40.1.902118.3.579.2.727 1959 Unknown [id number] Social History Date Type Detail Facility Tobacco smoking status No Smokin g Status Entered [facility] Start: 10-24-2023 End: 12-05-2023 Sex Assigned At Female [facility] Start: 09-11-2023 Tobacco smoking status Ex-smoker (fi nding) [facility] Tobacco smoking status Never [facility] Tobacco smoking stat [facility] Tobacco smoking consumption unknown [facility] Start: 10-24-2023 End: 12-05-2023 History of Social function [facility] Start: 1999 Sex Assigned At Female [facility] Start: 10-23-2023 Gender identity Identifies as female gender (finding) [facility] Start: 10-23-2023 Sexual orientation Bisexual (finding ) [facility] Functional Status Date Assessment Result Facility 12-26-2022 Functional Status N/A [facility] Clinical Notes 12-27-2022 to 06-03-2024 [facility] - 12/11/2023 8:08 AM EDTTelephone Encounter - tobiasbrittnee Keene [facility] ED - 12/11/2023 8:08 AM EDTPatient Instructions [...] for Disease Control and Prevention: cdc.gov ??? [place] Heart Association: heart.org ??? National Heart, Lung, and Blood [place]: nhlbi.nih.gov This information is not intended to replace advice given to you by your health care provider. Make sure you discuss any questions you have with your health care provider. Document Revised: 03/09/2023 Document Reviewed: 03/02/2023 [employer] Patient Education ? 2023 General Blood. [facility] 05-06-2024 Note Patient Education Nutrition [...] quickly find your BMI, go to: ??? [facility] Disease Control and Prevention: cdc.gov ??? [place] Heart Association: heart.org ??? National Heart, Lung, and Blood [place]: nhlbi.nih.gov This information is not intended to replace advice given to you by your health care provider. Make sure you discuss any questions you have with your health care provider. Document Revised: 03/09/2023 Document Reviewed: 03/02/2023 [employer] Patient Education ? 2023 General Blood. [facility] 03-18-2024 Note Patient Education Nutrition [...] for Disease Control and Prevention: cdc.gov ? [place] Heart Association: heart.org ? National Heart, Lung, and Blood [place]: nhlbi.nih.gov This information is not intended to replace advice given to you by your health care provider. Make sure you discuss any questions you have with your health care provider. Document Revised: 03/09/2023 Document Reviewed: 03/02/2023 [employer] Patient Education ? 2023 [employer] [facility] 12-11-2023 Telephone encounter Note Smoking Cessation Navigation Outcome of contact: Left Message Comments: A voicemail has been left for this patient regarding Tobacco Cessation support options. If this patient has any further questions they can email us at [email or web address] or call us at [phone]. [employer] Supervisor/Smoking Cessation Navigator: Maddiese [facility] 12-11-2023 Miscellaneous Notes Smoking Cessation Navigation Outcome of contact: Left Message Comments: A voicemail has been left for this patient regarding Tobacco Cessation support options. If this patient has any further questions they can email us at [email or web address] or call us at [phone]. [facility] [employer] Supervisor/Smoking Cessation Navigator: Maddiese [facility] documented in this encounter [facility] 12-06-2023 Note HNO ID: [id number] Author: HUY ESCOOT PSYD Service: ? Author Type: Psychologist Type: Progress Notes Filed: 12/07/2023 09:53 Note Text: [facility] BARIATRIC SURGERY BEHAVIORAL HEALTH EVALUATION DATE OF SERVICE: 12/06/2023 TIME OF SERVICE: 3:00PM to 4:20PM COST CENTER: 3BO CPT CODE: - 26965 Brief Emotional/Behavioral Assessment with scoring/documentation [id number] Virtual Psych Diagnostic Eval BILLING CODE: ENDO PSYL MAIN Fink BMI Surgical Pathway Visit type: Psychology Visit SESSION #: 1 The patient signed the Informed Consent for Psychological Evaluation AND Care Form via Littlecast (see consent dated 12/05/23), and the [facility] health care insurance benefits, fees for service, emergency procedures, and the limits of confidentiality that may pertain with any given case were discussed with the patient. The patient was given a copy of the consent form via Littlecast. I have communicated my name and active licensure. The patient's identity and physical location were verified at the time of this visit. Either the patient or their legal business services sales representative has been informed of the [...] technology to benefit from virtual format. Platform: [employer] Address of Patient During Time of Virtual Visit: Pt home at [address] [place] [address] Emergency Contact: Cari Escamilla (Grandparent) at IDENTIFYING [...] with any previou (more content not included)... [facility] 11-13-2023 Note HNO ID: [id number] Author: SHERYL LÓPEZ, PhD Service: ? Author Type: Psychologist Type: Progress Notes Filed: 11/13/2023 15:38 Note Text: [facility] Bariatric Behavioral Services Progress Note November 13, 2023 Patient did not check in for scheduled appointment. This visit will be marked as a no-show. Sheryl López, Ph.D. Clinical Psychologist [facility] 11-01-2023 History of Presen t illness Narrative RICK CARPIO MD, FACS, [facility] CELL: [phone] OFFICE: [phone] FAX: [phone] NEW PATIENT VIRTUAL CONSULT VISIT Consultation requested by Dr. Paolo Ortiz for an opinion regarding obesity therpay. My final recommendations will be communicated back to the requesting physician by way of shared Medical record or letter to requesting physician via US mail. This is a virtual visit using Littlecast video visit. It required patient-provider interaction for the medical decision making as documented below. I have communicated my name and active licensure. The patient's identity and physical location were verified at the time of this visit. Either the patient or their legal business services sales representative has been informed of the [...] RICK CARPIO MD documented in this encounter [facility] 11-01-2023 Note HNO ID: [id number] Author: RICK CARPIO MD Service: ? Author Type: Physician Type: Progress Notes Filed: 11/01/2023 12:54 Note Text: RICK CARPIO MD, [facility], [facility] CELL: [phone] OFFICE: [phone] FAX: [phone] NEW PATIENT VIRTUAL CONSULT VISIT Consultation requested by Dr. Paolo Ortiz for an opinion regarding obesity therpay. My final recommendations will be communicated back to the requesting physician by way of shared Medical record or letter to requesting physician via US mail. This is a virtual visit using Littlecast video visit. It required patient-provider interaction for the medical decision making as documented below. I have communicated my name and active licensure. The patient's identity and physical location were verified at the time of this visit. Either the patient or their legal business services sales representative has been informed of the [...] type: Bariatric Surgeon Visit RICK CARPIO MD [facility] 10-30-2023 Sangeeta Franco MD - 10/30/2023 11:01 AM EDT INSTRUCTIONS: 1) Please contact me (Dr. Burrell) if you have not heard about your test results within a few days after you had them done. Thank you: Contact information: [facility] [place] M61/Attention: Dr. Burrell [address] [place] [address] 2) Please check with your insurance company regarding cost/coverage of any tests ordered prior to having them completed. Sher Escamilla , Thank you for completing your visit today and we welcome you to the surgical program. We are sure that you will still have some additional questions and encourage you to reach out to your care provider via Zeb[employer] OR your Patient Navigator. The contact information for each Navigator is listed below: Sharita Dudley and Marce: Sil Sharita Jimenez, Michelle, and Edy: Shona Sharita López, Frank, and Nathan: Mary Sharita Tavera and [...] free to ask for a hard copy. [email or web address] Once you complete all of the requirements (testing, consultations, diet, etc) from each provider, please call [phone] and select option #5 to initiate insurance approval. Also, if you have any questions along the way, we encourage you to join our weekly Navigation webinar every Monday from 12:00 pm - 1:00 pm. This webinar will give you an opportunity to chat with your patient navigator and learn about your specific program requirements. The link for this webinar is below: [email or web address] Please note scheduling information It is important to keep track of your scheduled appointments to ensure successful completion of our surgical program. Any missed appointments can further delay your pre-surgical work-up. [facility] does offer an opt-in option for getting text message appointment reminders. Please follow the link below if you would like to opt into this service. [email or web address] As part of [...] these tests. You may call your local [facility] to get an appointment. - Lab work- No appointment is needed for this, you may complete at any [facility]. These are usually fasting labs, please be sure to fast (only water permitted) for 10-12 hours prior to the test. -Sleep Study- Please call [phone] or [phone] to get this appointment set up. -Sleep Medicine Consult- (Only needed if sleep study confirms sleep apnea) Please call [phone] or [phone] to schedule an appointment. Any testing that is completed outside of [facility] will need faxed to [phone]. We look forward to working with you on this journey, Sangeeta Burrell MD documented in this encounter [facility] 10-30-2023 Note HNO ID: [id number] Author: SANGEETA BURRELL MD Service: ? Author Type: Physician Type: Progress Notes Filed: 10/30/2023 17:03 Note Text: I have communicated my name and active licensure. The patient's identity and physical location were verified at the time of this visit. Either the patient or their legal business services sales representative has been informed of the [...] or clotting disorder, (more content not included)... [facility] 10-30-2023 History of Presen t illness Narrative I have communicated my name and active licensure. The patient's identity and physical location were verified at the time of this visit. Either the patient or their legal business services sales representative has been informed of the [...] vape-has been talking her doctor; ALL: See [facility] LABS: IMAGING: PROC: CARDIAC: MEDS: See Epic [...] other psychiatric problems Other providers: -PCP -Ob-gyne -clutch specialist occasionally (had her surgery on her [...] which included preparing to see the patient, vovx-tc-ktfi patient care, completing clinical documentation, obtaining and/or reviewing separately obtained history, counseling and educating the patient/family/caregiver, ordering medications, tests, or procedures, and care coordination (not separately reported). documented in this encounter [facility] 12-27-2022 Evaluation + Plan note Extrac [...] Date:03/02/2023 09:40:00 AM Scheduled Provider:Paolo Ortiz MD Location:[facility] Appointment Type:FM New Patient - Adult [facility]06[facility]27-2023 Hospital Discharge instructions Patient Education 12/27/2022 00:14:24 [...] may be recommended to support your foot. Emoe-esi-eygipia anti-inflammatory medicines may also be recommended for [...] sitting or lying down. General instructions Take ryqv-sta-uqwnmsn and prescription medicines only as told by [...] provider. Document Revised: 09/22/2021 Document Reviewed: 09/22/2021 [facility] Patient Education 2022 General Blood. Follow Up Care 12/26/2022 22:46:10 With:XXXX NONE [...] you develop any new or worsening symptoms. [facility] Future Appointments Appointment Date:10/23/2023 09:30:00 AM Scheduled Provider:Paolo Ortiz MD Location:[facility] Appointment Type:[facility] Behavioral Health evaluation + Plan note Future Appointments Appointment Date:11/23/2023 01:00:00 PM Scheduled Provider:CRISTINO VARELA Location:[facility] Behavioral Health Peds Appointment Type: Video Visit Therapy 60 [facility] Behavioral Health evaluation note* Diagnosis Preop testing- Primary Preoperative examination, unspecified Morbid obesity with BMI of 50.0-59.9, adult (HCC) Morbid obesity Snoring Other dyspnea and respiratory abnormality Fatigue, unspecified type [facility] Diagnosis Class 3 severe obesity without serious comorbidity with body mass index (BMI) of 50.0 to 59.9 in adult, unspecified obesity type (HCC)- Primary [facility] Narrative No data available for this section [facility] No data available for this section [facility] Behavioral Health progress note No data available for this section [facility] Outpatient Procedure (Routine) - Pending Review Specialty Diagnoses / Procedures Referred By Terrance carter [facility] Diagnoses Preop testing Snoring Fatigue, unspecified type Morbid obesity with BMI of 50.0-59.9, adult (HCC) Procedures ECG COMPLETE ECG ROUTINE ECG W/LEAST 12 LDS W/I&R Sangeeta Burrell MD [address] [place] [address] [facility] [address] [address] Referral ID Status Reason Start Date Expiration Date Visits Requested Visits Authorized [id number] Pending Review Auto-Generat ed Referral 10/30/2023 10/29/2024 1 1 * Diagnostic Procedure Only (Routine) - Pending Review Specialty Diagnoses / Procedures Referred By Terrance carter Referred To Contact [facility] Diagnoses Preop testing Snoring Fatigue, unspecified type Morbid obesity with BMI of 50.0-59.9, adult (HCC) Procedures US ABD RIGHT UPPER QUADRANT US ABDOMINAL REAL TIME W/IMAGE LIMITED Sangeeta Burrell MD [address] [place] [address] [place] [phone] Referral ID Status Reason Start Date Expiration Date Visits Requested Visits Authorized [id number] Pending Review Auto-Generat ed Referral 10/30/2023 11/28/2024 1 1 * Consult, Test, Treat (Routine) - Authorized Specialty Diagnoses / Procedures Referred By Terrance carter Referred To Contact Diagnoses Preop testing Snoring Fatigue, unspecified type Morbid obesity with BMI of 50.0-59.9, adult (HCC) Procedures CONSULT TO SLEEP MEDICINE - ADULT OFFICE/OUTPATIENT [facility] 60 MINUTES Sangeeta Burrell MD [address] [place] [address] Referral ID Status Reason Start Date Expiration Date Visits Requested Visits Authorized [id number] Authorized PCP Requested Referral 10/30/2023 10/29/2024 1 1 * Diagnostic Procedure Only (Routine) - Pending Review Specialty Diagnoses / Procedures Referred By Terrance carter Referred To [facility] Diagnoses Preop testing Snoring Fatigue, unspecified type Morbid obesity with BMI of 50.0-59.9, adult (HCC) Procedures HOME SLEEP APNEA TEST (HSAT) SLEEP STD AIRFLOW HRT RATE&O2 SAT EFFORT UNATT Sangeeta Burrell MD [address] [place] [address] [place] [address] Referral ID Status Reason Start Date Expiration Date Visits Requested Visits Authorized [id number] Pending Review Auto-Generat ed Referral 10/30/2023 10/29/2024 1 1 [facility] Summary Purpose Family History No Family [...] section and content) DATE CREATED AUTHOR 07/22/2021 [facility] DATE CREATED AUTHOR AUTHOR'S ORGANIZ ATION 08/26/2021 [facility] DATE CREATED AUTHOR AUTHOR'S ORGANIZ ATION 12/11/2023 [facility] DATE CREATED AUTHOR AUTHOR'S ORGANIZ ATION 08/06/2024 [facility] Patient Care team informatio n (unrecognized section and content) 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 Address: Address: [address] [place] [address]- Source Comments (unrecognize d section and content) In the event this informatio n is protected by the Federal Confidentiality of Alcohol and Drug Abuse Patient Records regulations: The Federal rules restrict any use of the information to criminally investigate or prosecute any alcohol or drug abuse patient.[facility] the event this information is protected by the Federal Confidentiality of Alcohol and Drug Abuse Patient Records regulations: The Federal rules restrict any use of the information to criminally investigate or prosecute any alcohol or drug abuse patient.[facility] the event this information is protected by the Federal Confidentiality of Alcohol and Drug Abuse Patient Records regulations: The Federal rules restrict any use of the information to criminally investigate or prosecute any alcohol or drug abuse patient.[facility] Reason for Visit (unrecogniz ed section [...] BE BASED ON THE PRIMARY CLINICAL RECORDS. [facility] [employer] [facility]. provides no warranty or guarantee of the accuracy or completeness of information in this document.
--- NOTE | 2024-09-12 20:45 | ED.NAVMDI1 ---
HPI - Nausea/Vomiting/Diarrhea General Chief complaint: Nausea/Vomiting/Diarrhea Stated complaint: NAUSEA Time Seen by Provider: 09/12/24 20:36 Source: patient Mode of arrival: walk-in Limitations: no limitations History of Present Illness HPI Narrative: Patient is a 24-year-old female who presents to the emergency department for a 1 day history of nausea and vomiting. She reports associated diarrhea. She states she has had a migraine headache today. She denies abdominal pain, fevers. She has not had any significant upper respiratory symptoms. She has no concern for . She has been urinating without difficulty today. She states she has no energy and does not feel well. Related Data Home Medications ?Medication ?Instructions ?Recorded ?Confirmed bupropion HCl 150 mg 24 hr tablet, 150 mg PO DAILY 11/12/23 12/26/23 extended release albuterol sulfate 90 mcg/actuation 2 puff inhalation Q6H PRN 06/14/24 06/14/24 aerosol inhaler shortness of breath or wheezing escitalopram oxalate 20 mg tablet 20 mg PO DAILY 06/14/24 06/14/24 Previous Rx's ?Medication ?Instructions ?Recorded benzonatate 200 mg capsule 200 mg PO TID PRN cough #10 caps 06/05/24 methylprednisolone 4 mg tablets in 4 mg PO DAILY #21 ea 06/05/24 a dose pack (BabyListrol (Anish)) amoxicillin 500 mg capsule 500 mg PO TID 10 days #30 caps 06/14/24 nrhefxwlvniiqlv-cukpmqcqyqyzqls-GU 10 ml PO Q6H PRN cold symptoms 06/14/24 2 mg-30 mg-10 mg/5 mL oral syrup #200 mL (Bromfed DM) dexamethasone 4 mg tablet 4 mg PO BID 5 days #10 tabs 06/14/24 ondansetron 4 mg disintegrating 4 mg PO Q6H PRN nausea and 06/14/24 tablet vomiting #12 tabs promethazine-DM 6.25 mg-15 mg/5 mL 5 ml PO Q6H PRN cough #118 mL 06/14/24 oral syrup ondansetron 4 mg disintegrating 4 mg PO Q6H PRN nausea and 09/12/24 tablet vomiting #12 tabs Allergies Allergy/AdvReac Type Severity Reaction Status Date / Time Sulfa (Sulfonamide Allergy Hives Verified 12/04/24 15:53 Antibiotics) Review of Systems ROS Constitutional Denies: fever or chills Eyes Denies: change in vision Ears, nose, mouth, and throat Denies: throat pain or nasal congestion Cardiovascular Denies: chest pain Respiratory Denies: shortness of breath or cough Gastrointestinal Reports: nausea, vomiting and diarrhea; Denies: abdominal pain Musculoskeletal Denies: back pain Integumentary/Breast Denies: rash Neurological Denies: numbness in extremities or weakness in extremities Hematologic/Lymphatic Denies: easy bruising or easy bleeding PFSH PFS Social History Little interest or pleasure in doing things: not at all Feeling down, depressed, or hopeless: not at all Exam Narrative Exam Narrative: Gen.: Awake, alert, in no distress Head: Normocephalic, atraumatic ENT: Moist mucous membranes Respiratory: No respiratory distress, lungs clear bilaterally Cardio: Regular rate and rhythm Gastrointestinal: Abdomen is soft, nondistended and nontender to palpation Extremities: Moves extremities equally Psych: Normal mood and affect Neuro: No focal neuro deficit Skin: Warm, dry, intact Constitutional Vital Signs, click to edit/add: Last Vital Signs Temp 98.1 F 09/12/24 20:37 Pulse 91 H 09/12/24 20:37 Resp 18 09/12/24 20:37 BP 158/106 H 09/12/24 20:37 Pulse Ox 99 09/12/24 20:37 O2 Del Method Room Air 09/12/24 20:37 Course Vital Signs Vital signs: Vital Signs Temperature 98.1 F 09/12/24 20:37 Pulse Rate 91 H 09/12/24 20:37 Respiratory Rate 18 09/12/24 20:37 Blood Pressure 158/106 H 09/12/24 20:37 Pulse Oximetry 99 09/12/24 20:37 Oxygen Delivery Method Room Air 09/12/24 20:37 Temperature 98.1 F 09/12/24 20:37 Pulse Rate 91 H 09/12/24 20:37 Respiratory Rate 18 09/12/24 20:37 Blood Pressure 158/106 H 09/12/24 20:37 Pulse Oximetry 99 09/12/24 20:37 Oxygen Delivery Method Room Air 09/12/24 20:37 MDM - Nausea/Vomiting/Diarrhea MDM Narrative Medical decision making narrative: Patient appears nontoxic in the ER, no abdominal pain and abdomen is soft and benign. Labs show mild dehydration, no significant infection noted on urine specimen so we will wait for culture. Patient was treated with IV fluids, Reglan, Benadryl, Toradol. She is hemodynamically stable in the ER with no episodes of emesis. She will be discharged home with nausea medication. Follow-up with PCP and return to the ER if symptoms change or worsen SUPERVISED APC VISIT, PHYSICIAN ATTESTATION: Based on the medical record the care appears appropriate. ? Medical Records Attestation: I reviewed the patient's medical records. Lab Data Attestation: I reviewed the patient's lab results. Labs: Lab Results 09/12/24 09/12/24 Range/Units 20:50 20:55 WBC 7.9 (4.0-11.0) 10^3/uL RBC 4.75 (4.20-5.40) 10^6/uL Hgb 14.4 (12.0-16.0) g/dL Hct 44.8 (36.0-48.0) % MCV 94.3 (81.0-99.0) fL MCH 30.3 (26.7-34.0) pg MCHC 32.1 (29.9-35.2) g/dL RDW 18.1 H (11.0-15.0) % Plt Count 278 (150-450) 10^3/uL MPV 9.5 (9.5-13.5) fL Neut % (Auto) 43.3 (43.0-75.0) % Lymph % (Auto) 42.6 (20.5-60.0) % Antelope % (Auto) 10.2 (1.7-12.0) % Eos % (Auto) 2.5 (0.9-7.0) % Baso % (Auto) 1.1 (0.2-2.0) % Neut # (Auto) 3.4 (1.4-6.5) 10^3/uL Lymph # (Auto) 3.4 (1.2-3.8) 10^3/uL Antelope # (Auto) 0.8 (0.3-0.8) 10^3/uL Eos # (Auto) 0.2 (0.0-0.7) 10^3/uL Baso # (Auto) 0.1 (0.0-0.1) 10^3/uL Abs Immat Gran (auto) 0.02 (0.00-0.03) 10^3/uL Imm/Tot Granulo (auto) 0.3 (0.0-0.5) % Sodium 141 (136-145) mmol/L Potassium 3.9 (3.5-5.1) mmol/L Chloride 103 (98-107) mmol/L Carbon Dioxide 28.2 (21.0-32.0) mmol/L Anion Gap 13.7 BUN 10.0 (7.0-18.0) mg/dL Creatinine 1.32 H (0.55-1.02) mg/dL Est GFR ( Amer) 59 L (>=60 mL/min/1.73m^2) Est GFR (Non-Af Amer) 49 L (>=60 mL/min/1.73m^2) BUN/Creatinine Ratio 7.6 Glucose 76 (74-106) mg/dL Calcium 8.9 (8.5-10.1) mg/dL Total Bilirubin 0.5 (0.2-1.0) mg/dL AST 41 H (15-37) U/L ALT 81 H (14-59) U/L Alkaline Phosphatase 86 (46-116) U/L Total Protein 7.5 (6.4-8.2) g/dL Albumin 3.4 (3.4-5.0) g/dL Globulin 4.1 g/dL Albumin/Globulin Ratio 0.8 Urine Color Yellow (YELLOW) Urine Clarity Clear (CLEAR) Urine pH 6.0 (5.0-9.0) Ur Specific [place] 1.025 (1.005-1.025) Urine Protein 30 A (NEG/TRACE) mg/dL Urine Glucose (UA) Negative (NEGATIVE) mg/dL Urine Ketones Trace A (NEGATIVE) mg/dL Urine Occult Blood Negative (NEGATIVE) Urine Nitrite Negative (NEGATIVE) Urine Bilirubin Negative (NEGATIVE) Urine Urobilinogen 1.0 (0.2-1.0) EU/dL Ur Leukocyte Esterase Trace A (NEGATIVE) Urine RBC 0-2 (0-2) #/HPF Urine WBC 2-5 A (NONE SEEN) #/HPF Ur Squamous Epith Cells Few A (NONE/RARE) #/LPF Urine Crystals None seen (None Seen) #/HPF Urine Bacteria Small A (NONE SEEN) #/HPF Urine Casts None seen (NONE SEEN) #/LPF Urine Mucus Moderate A (NONE SEEN) Ur Culture Indicated? Yes-[facility] [place] Urine HCG, Qual Negative (NEGATIVE) Discharge Plan Discharge Chief Complaint: Nausea/Vomiting/Diarrhea Clinical Impression: Nausea, vomiting and diarrhea, Headache, Mild dehydration Patient Disposition: Home, Self-Care Time of Disposition Decision: 21:42 Condition: Good Prescriptions / Home Meds: New ondansetron 4 mg tablet,disintegrating 4 mg PO Q6H PRN (Reason: nausea and vomiting) Qty: 12 0RF No Action methylprednisolone [Medrol (Anish)] 4 mg tablets,dose pack 4 mg PO DAILY Qty: 21 0RF benzonatate 200 mg capsule 200 mg PO TID PRN (Reason: cough) Qty: 10 0RF escitalopram oxalate 20 mg tablet 20 mg PO DAILY albuterol sulfate 90 mcg/actuation HFA aerosol inhaler 2 puff INHALATION Q6H PRN (Reason: shortness of breath or wheezing) amoxicillin 500 mg capsule 500 mg PO TID 10 Days Qty: 30 0RF dexamethasone 4 mg tablet 4 mg PO BID 5 Days Qty: 10 0RF fobsiltvkgidhzd-kxaswzebe-JY [Bromfed DM] 2-30-10 mg/5 mL syrup 10 ml PO Q6H PRN (Reason: cold symptoms) Qty: 200 0RF ondansetron 4 mg tablet,disintegrating 4 mg PO Q6H PRN (Reason: nausea and vomiting) Qty: 12 0RF promethazine-DM 6.25-15 mg/5 mL syrup 5 ml PO Q6H PRN (Reason: cough) Qty: 118 0RF bupropion HCl 150 mg tablet extended release 24 hr 150 mg PO DAILY Print Language: [place] Instructions: Dehydration (ED) Referrals: PAOLO ORTIZ [Primary Care Provider] - 1 week
[2024-09-12 21:05] LABS: Bilirubin Urine NEGATIVE (NEGATIVE); Blood Urine NEGATIVE (NEGATIVE); Clarity Urine CLEAR (CLEAR); Color Urine YELLOW (YELLOW); Glucose Urine UA NEGATIVE (NEGATIVE); Ketones Urine TRACE mg/dL (NEGATIVE); Leukocyte Esterase Urine TRACE (NEGATIVE); Nitrite Urine NEGATIVE (NEGATIVE); Protein Urine 30 mg/dL (NEG/TRACE); Specific Gravity Urine 1.025 (1.005-1.025)
[2024-09-12] MEDS: METOCLOPRAMIDE HCL 10 MG/2 ML VIAL IVP (21:06)
[2024-09-12] MEDS: DIPHENHYDRAMINE HCL 50 MG/ML VIAL 25 MG IVP (21:06)
[2024-09-12] MEDS: KETOROLAC TROMETHAMINE 30 MG/ML VIAL IVP (21:07)
[2024-09-12] MEDS: 0.9 % SODIUM CHLORIDE 1,000 ML 999 ML IV (21:07)
[2024-09-12 21:08] LABS: HCG Qualitative Urine* NEGATIVE (NEGATIVE); Internal Control Within Normal Limits
[2024-09-12 21:10] LABS: Basophils Absolute Auto 0.1 10^3/uL (0.0-0.1); Basophils Percent Auto 1.1 % (0.2-2.0); Eosinophils Absolute Auto 0.2 10^3/uL (0.0-0.7); Eosinophils Percent Auto 2.5 % (0.9-7.0); Hematocrit 44.8 % (36.0-48.0); Hemoglobin 14.4 g/dL (12.0-16.0); Immature Granulocytes Abs Auto 0.02 10^3/uL (0.00-0.03); Immature Granulocytes Pct Auto 0.3 % (0.0-0.5); Lymphocytes Absolute Auto 3.4 10^3/uL (1.2-3.8); Lymphocytes Percent Auto 42.6 % (20.5-60.0); Mean Corpuscular HGB Conc 32.1 g/dL (29.9-35.2); Mean Corpuscular Hemoglobin 30.3 pg (26.7-34.0); Mean Corpuscular Volume 94.3 fL (81.0-99.0); Mean Platelet Volume 9.5 fL (9.5-13.5); Monocytes Absolute Auto 0.8 10^3/uL (0.3-0.8); Monocytes Percent Auto 10.2 % (1.7-12.0); Neutrophils Absolute Auto 3.4 10^3/uL (1.4-6.5); Neutrophils Percent Auto 43.3 % (43.0-75.0); Platelet Count 278 10^3/uL (150-450); Red Blood Count 4.75 10^6/uL (4.20-5.40); Red Cell Distribution Width 18.1 % (11.0-15.0); White Blood Count 7.9 10^3/uL (4.0-11.0)
[2024-09-12 21:18] LABS: Alanine Aminotransferase 81 U/L (14-59); Albumin Globulin Ratio 0.8; Albumin Level 3.4 g/dL (3.4-5.0); Alkaline Phosphatase 86 U/L (46-116); Anion Gap 13.7; Aspartate Amino Transferase 41 U/L (15-37); BUN Creatinine Ratio 7.6; Bilirubin Total 0.5 mg/dL (0.2-1.0); Calcium 8.9 mg/dL (8.5-10.1); Carbon Dioxide 28.2 mmol/L (21.0-32.0); Chloride 103 mmol/L (98-107); Estimated GFR (African America 59 (>=60 mL/min/1.73m^2); Estimated GFR (Non-African Ame 49 (>=60 mL/min/1.73m^2); Globulin 4.1 g/dL; Glucose 76 mg/dL (74-106); Potassium 3.9 mmol/L (3.5-5.1); Sodium 141 mmol/L (136-145); Total Protein 7.5 g/dL (6.4-8.2)
[2024-09-12 21:20] LABS: Bacteria Urine SMALL #/HPF (NONE SEEN); Mucus Urine MODERATE (NONE SEEN); RBC Urine 0-2 #/HPF (0-2); Squamous Epithelial Cell Urine FEW #/LPF (NONE/RARE)
[2024-09-12 21:21] LABS: Cast Seen? NONE SEEN #/LPF (NONE SEEN); Crystals Seen? None Seen #/HPF (None Seen); Urine Culture Indicated YES-FRMC
--- NOTE | 2024-09-12 22:13 | PC.NURSE ---
this patient voices no question about her discharge or work note (Mahogany gave these to patient). at time of discharge this patient voices no concerns and shows no signs of distress
== END 2024-09-12 22:14 | disposition home or self-care (01) ==
PROVIDERS: Physician Assistant; Emergency Provider Emergency Medicine; PCP Family Medicine
DX: E86.0 Dehydration (principal); R11.2 Nausea with vomiting, unspecified; R19.7 Diarrhea, unspecified; R51.9 Headache, unspecified
CPT/HCPCS: 36415; 80053; 81001; 84703; 85025; 87086; 96361; 96374; 96375; 99285; J1200; J1885; J2765

== ENCOUNTER 2024-10-10 19:59 | Emergency (ER) | payer OTHER, SELFPAY ==
--- OUTSIDE RECORDS SUMMARY | 2024-10-10 20:03 | XMS_ITS | CCD ---
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 Name Role Phone DR CHAD STRONG Primary [...] Unavailable PAOLO ORTIZ Primary Care Unavailable SHERYL WU Attending Unavailable PAOLO ORTIZ Primary Care Unavailable RICK CARPIO Attending Unavailable MD Paolo Ortiz Attending Unavailable [...] Attending Unavailable MD Paolo Ortiz Attending Unavailable Sil Fairchild PA-C Attending Provider Sil Fairchild Attending Unavailable Sil Fairchild Admitting Unavailable Allergies Allergy Classification Reported Allergen(s) Allergy Type Date of Onset Reaction(s) Facility (1 source) Sulfonamides (Antibiotic) Drug allergy (disorder) 01-10-2014 [facility] Repository (6 sources) Sulfacetamide; Translations: [sodium sulfacetamide ophthalmic] Drug Allergy Rash [facility] (1 source) Sulfonamides (Antibiotic) Drug allergy (disorder) 12-10-2020 [facility] Repository Medications Current Medications Medication Drug Class(es) Dates Sig (Normalized) Sig (Original) Albuterol (Eqv-ProAir HFA) 90 mcg/inh inhalation aerosol (4 sources) Start: 08-18-2023 Albuterol (Eqv-ProAir HFA) 90 mcg/inh inhalation aerosol See Instructions, 8.5 EA, Refill(s) 0, INHALE 2 PUFFS BY MOUTH EVERY 6 HOURS, [facility], 168, cm, 07/27/23 7:24:00 EST, Height/Length Dosing, 139.9, kg, 07/27/23 7:24:00 EST, Weight Dosing Start Date: 08/18/23 Status: Ordered 24 hr buPROPion hydrochloride 300 mg extended release oral tablet (4 sources) Aminoketone Start: 09-11-2023 take 1 tablet by mouth every twenty-four hours buPROPion 300 mg/24 hours ER Tab 300 mg = 1 tab(s), Oral, q24hr, # 90 tab(s), Refills(s) 1, Pharmacy: [facility]/pharmacy #[id number], 168, cm, 09/11/23 8:16:00 EDT, Height/Length Dosing, 142.5, kg, 09/11/23 8:16:00 EDT, Weight Dosing Start Date: 09/11/23 Status: Ordered ibuprofen 600 mg oral tablet (1 source) Nonsteroidal Anti-inflammatory Drug Start: 12-10-2020 take 1 tablet by mouth every eight hours as needed for pain Ibuprofen 600 mg tablet Active 600 MG PO Q8H as needed for pain December 10, 2020 12:00am Problems Active Problems Problem Classification Problem Date [...] obesity with BMI of 50.0-59.9, adult ([facility])] Onset: 11-15-2023 Chronic Other nutritional; endocrine; and [...] sources) Acute upper respiratory infection 07-27-2023 Episodic Sprains and strains (1 source) Sprain of left ankle; Translations: [Sprain of unspecified ligament of left ankle, initial encounter] 06-14-2023 Episodic Comment on above: Problem List clean-u p per request of Phys. EHR Cmte Superficial injury; contusion (1 source) Contusion of [...] Test Name Value Interpretation Reference Range Facility Urine Cultureon 09-12-2024 Bacteria identified Cx Nom (U) >100,000 colonies/ml mixed bacterial skin contaminants 2 Days PERFORMED BY: [place] [address] PATHOLOGIST SURGICAL GARMENT ASSEMBLER ANGELIC Laurent [facility] Comment on above: Performed By: #### C UU #### [address] Ambulatory Visit Summaryon 1 08-04-2023 Ambulatory Visit Summary Ambulatory Visit Summary ANDIDIONTE Howell :2000 Visit Date:06/03/2024 Ambulatory Visit Instructions Your [...] PM EST With: Paolo Ortiz MD Where: [place] [address]- Medications What How Much When Instructions Unchanged [...] for choosing us for your care. Normal [facility] Family Medicine Office/Clini c Noteon 06-03-2024 Family Medicine [...] do. Patient understands. Gave the number to manager psychiatry that may be able to help with [...] malignant neoplasm of female breast: Grandparent. Normal [facility] Comment on above: Result Comment: Elec tronically Signed By: Derik PRADHAN, Paolo Beltran\.br\Date and Time Signed: 06/03/24 16:05 EST Family [...] documented 300 (more content not included)... Normal [facility] Comment on above: Result Comment: Elec tronically Signed By: Derik PRADHAN, Paolo Beltran\.br\Date and Time Signed: 05/06/24 16:59 EST Family Medicine Office/Clini c Noteon 03-18-2024 Family Medicine Office/Clinic Note Family Medicine Office/Clinic Note HPI Staff Corinne is a 24 year old female presenting for paperwork update for legal administrative secretary animal Dr Strong was the last to fill this out, she's had her emotional support animal for a while Forgot the paperwork at home will need to drop off LORI: 11 phq9: 9 History of Present Illness Patient is here for follow-up. Patient has not been taking her medication. Patient wants to try something else. 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 Ordered: [facility] External Ambulatory Referral 2. Anxiety (F41.9: Anxiety disorder, unspecified) As above Ordered: [facility] External Ambulatory Referral 3. Excessive dietary caloric intake (R63.2: Polyphagia) Will refer back to bariatric surgery. Ordered: [facility] External Ambulatory Referral 4. BMI 50.0-59.9, adult (Z68.43: Body mass index [BMI] 50.0-59.9, adult) BMI education added Ordered: Body Mass Index (BMI) documented 3008F Current tobacco smoker 1034F Depression Screening Negative 3352F [facility] External Ambulatory Referral Most recent diastolic blood [...] smoker 1034F Depression Screening Negative 3352F [facility] External Ambulatory Referral Most recent diastolic blood [...] q24hr, # 90 tab(s), Refills(s) 1, Pharmacy: [facility]/pharmacy #[id number], 168, cm, 09/11/23 8:16:00 EDT, Height/Length Dosing, 142.5, kg, 09/11/23 8:16:00 EDT, Weight Dosing escitalopram, 10 mg = 1 tab(s), Oral, Daily, # 90 tab(s), Refills(s) 0, Pharmacy: [facility]/pharmacy #[id number], 168, cm, 03/18/24 17:33:00 EDT, Height/Length [...] Primary malignant neoplasm of female breast: Grandparent. [facility] Comment on above: Result Comment: Elec tronically Signed By: Derik PRADHAN, Paolo Beltran\.br\Date and Time Signed: 03/18/24 17:51 EDT ED Note-Physicianon 12-27-19 ED Note-Physician [id number] .00TIFF [facility] Video Visit - Telehealtho n 12-12-2023 Video [...] Discussed health issues Explore Family Dynamics Discuss advanced analytics associate issues Timeline of Significant Life Events THEME OF SESSION/TOPIC/TREATME NT GOALS: Exploration of Thoughts/Feelings Relationship Issues/Problems Work Issues/Problems Relationship with sisters fusion operator experiences NOTES/SUMMARY OF SESSION: Patient was last seen for counseling services one month ago. Patient remains uncomfortable with her current psychotropic medication, but her PCP recommended that she have a psychiatric evaluation. Patient has decided to undergo gastric bypass surgery, and needs to complete a sleep apnea test, blood work, and remain alcohol and nicotine free. 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 We began reviewing her Timeline of Significant Life Events. She talked about growing up with her mother who had significant drug issues (heroin and meth). Her mother currently has a warrant out for her arrest due to child support. 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 TREATMENT PLAN: GOAL: Patient [...] 1 tab(s), (more content not included)... Normal [facility] Comment on above: Result Comment: Elec tronically Signed By: EMILY [facility] Zimmerman\.gisel\Date and Time Signed: 12/12/23 12:42 EDT Guillermina 12-11-2023 GINNA Telephone (WIQ) DIONTE ESCAMILLA ([id number]) 2000 F Date Time Provider Department 12/11/23 REYMANN VIOLA, MADDIE WIQ During your visit today, we recorded the following information about you: [facility] 12/11/2023 8:08 AM Signed Smoking Cessation Navigation Outcome of contact: Left Message Comments: A voicemail has been left for this patient regarding Tobacco Cessation support options. If this patient has any further questions they can email us at [email or web address] or call us at [phone]. eHealth Assistant Director Of Financial Aid/Smoking Cessation Navigator: Maddie [facility] ED Allergies As of Date: 12/11/2023 (Not on File) Date Reviewed: 12/07/2023 Reviewed by: Huy Escoto PSYD - Fully Assessed Reason for Visit: Smoking Cessation [1387] Problem List As Of Date: 12/11/2023 (None) Encounter Status:Closed by MADDIE DSOUZA on 12/11/23 Normal [facility] ED Note-Physicianon 11-16-19 ED Note-Physician [id number]. 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 Patient did have a medical appointment about gastric bypass surgery, and she is considering her options. 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 Reviewed Fair Fighting Rules and out with [...] GERD (ga (more content not included)... Normal [facility] Comment on above: Result Comment: Elec tronically Signed By: EMILY [facility]\.gisel\Date and Time Signed: 11/06/23 15:03 EDT Video [...] disorder (F39: Unspecified mood [affective] disorder) Ordered: [facility] Psych Diagnostic Eval W/O Med Mgmt 30307 Assessment and Plan No qualifying data available. 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 Reviewed relevant social history information. When asked [...] Surgery. Me (more content not included)... Normal [facility] Comment on above: Result Comment: Elec tronically Signed By: [facility] Riddle\.gisel\Date and Time Signed: 11/01/23 12:39 EDT Video [...] No qualifying data available. Therapeutic Survey Comments: Mu-Ism Needs No qualifying data available. Mu-Ism/Spiritual/C ultural Comments: Financial Situation No qualifying data [...] of Anxiety: (Most responses were Sometimes/Often) 1. [place] concerned about things other people consider unimportant. 2. Have difficulty controlling worries. 3. Feel restless or on-edge. 4. Feel irritable, most of the time. 5. Feel extremely tense or unable to relax. 8. [place] fearful of things, or situations (animals, heights, storms, insects, etc.). 12. Make unusual movements for no apparent reason (blinking, head jerking, etc.) 13. Make unusual sounds/noises (coughing, throat clearing, sniffling, grunting, etc.) 14. Try to avoid contact with strangers; abnormally shy. 15. Feel excessively shy in social situations. 16. When put in uncomfortable social situations, I fr (more content not included)... Normal [facility] Comment on above: Result Comment: Elec [...] AM EDT With: Paolo Ortiz MD Where: [facility] Normal [facility] Ambulatory Visit Summaryon 0 09-11-2023 Ambulatory [...] AM EDT With: Paolo Ortiz MD Where: [facility] Invalid Interpretation Code Class 3 obesity [facility] Medicine Office/Clini c Noteon 09-11-2023 [...] to Bariatric surgery for consult. Ordered: [facility] External Ambulatory Referral [facility] Internal Ambulatory Referral 2. Depression (F32.A: Depression, unspecified) - Will increase the wellbutrin. - Will send to counseling. - Follow up in 6 weeks. 3. BMI 50.0-59.9, adult (Z68.43: Body mass index [BMI] 50.0-59.9, adult) Discussed BMI and the needs for bariatric surgery at this BMI level. Ordered: Body Mass Index (BMI) documented 3008F Current tobacco smoker 1034F Depression Screening Positive 3354F [facility] External Ambulatory Referral [facility] Internal Ambulatory Referral Influenza immunization status assessed 1030F Most recent diastolic blood pressure 80-89 mm Hg 3079F Systolic BP 130-139 mm Hg (Most Recent) 3075F 4. Class 3 obesity (E66.01: Morbid (severe) obesity due to excess calories) Diet and exercise advised. Ordered: Body Mass Index (BMI) documented 3008F Current tobacco smoker 1034F Depression Screening Positive 3354F [facility] External Ambulatory Referral [facility] Internal Ambulatory Referral Influenza immunization status assessed 1030F Most recent diastolic blood pressure 80-89 mm Hg 3079F Systolic BP 130-139 mm Hg (Most Recent) 3075F 5. Vaping-related disorder (U07.0: Vaping-related disorder) Please stop vaping. Ordered: Body Mass Index (BMI) documented 3008F Current tobacco smoker 1034F Depression Screening Positive 3354F [facility] External Ambulatory Referral [facility] Internal Ambulatory Referral Influenza immunization status assessed 1030F Most recent diastolic blood pressure 80-89 mm Hg 3079F Systolic BP 130-139 mm Hg (Most Recent) 3075F Orders: buPROPion, 300 mg = 1 tab(s), Oral, q24hr, # 90 tab(s), Refills(s) 1, Pharmacy: [facility]/pharmacy #[id number], 168, cm, 09/11/23 8:16:00 EDT, Height/Length [...] malignant neoplasm of female breast: Grandparent. Normal [facility] Comment on above: Result Comment: Elec [...] numbers. This can be done either in [place] ([place] or metric measurements. Note that charts and online BMI calculators are available to help you find your BMI quickly and easily without having to do these calculations yourself. To calculate your BMI in [place] ([place] measurements: 1. Measure your weight in [...] www.heart.org ? National Heart, Lung, and Blood Call: www.nhlbi.nih.gov Summary ? Body mass index (BMI) is a number that is calculated from a person's weight and height. ? BMI may help estimate how much of a person's weight is composed of fat. BMI can help identify those who may be at higher risk for certain medical problems. ? BMI can be measured using Lebanese measurements or metric measurements. ? BMI charts are used to identify whether you are underweight, normal weight, overweight, or obese. This information is not intended to replace advice given to you by your health care provider. Make sure you discuss any questions you have with your health care provider. Document Revised: 03/11/2020 Document Reviewed: 01/17/2020 [employer] Patient Education ? 2022 [employer]. Normal [facility] Physician Referralon 024 Physician Referral [id number] .00TIFF Normal [facility] PAP ACOG PANEL 2: 21 to 29on 08-25-2021 . . Normal [facility] Comment on above: Performed By: #### 4 [id number] #### [facility] [address] [place] [address] Dr. Mariah Garcia Age Gdln ACOG Testing 21-29 Normal [facility] Comment on above: Performed By: #### [id number] #### [facility] [address] [place] [address] Dr. Mariah Garcia DIAGNOSIS: Comment [facility] Comment on above: Result Comment: NEGA TIVE FOR INTRAEPITHELIAL LESION OR MALIGNANCY. Performed By: #### 4 [id number] #### [facility] [address] [place] [address] Dr. Mariah Garcia Methodology: Comment [facility] Comment on above: Result Comment: This liquid based ThinPrep(R) pap test was screened with the use of an image guided system. Performed By: #### 4 [id number] #### [facility] [address] [place] [address] Dr. Mariah Garcia Note: Comment [facility] Comment on above: Result Comment: The Pap smear is a screening test designed to aid in the detection of premalignant and malignant conditions of the uterine cervix. It is not a diagnostic procedure and should not be used as the sole means of detecting cervical cancer. Both false-positive and false-negative reports do occur. . Performed By: #### 4 [id number] #### [facility] [address] [place] [address] Dr. Mariah Garcia Performed by: Comment Normal [facility] Comment on above: Result Comment: Jesse Burrell, Sod Farmer (ASCP) Performed By: #### 4 [id number] #### [facility] [address] [place] [address] Dr. Mariah Garcia Reflex Criteria: Comment Normal [facility] Comment on above: Result Comment: The HPV DNA reflex criteria were not met with this specimen result therefore, no HPV testing was performed. . Performed By: #### 4 [id number] #### [facility] [address] [place] [address] Dr. Mariah Garcia Specimen adequacy: Comment [facility] Comment on above: Result Comment: Sati sfactory for evaluation. Endocervical and/or squamous metaplastic cells (endocervical component) are present. Performed By: #### 4 [id number] #### [facility] [address] [place] [address] Dr. Mariah Garcia CHLAMYDIA/GONOCOCCUS BIRGIT (SW AB/URINE/PAPon 08-23-2021 Chlamydia trachomatis, BIRGIT Negative Normal Negative [facility] Comment on above: Performed By: #### C T/NGNA #### [facility] [address] [place] [address] Dr. Mariah Garcia Neisseria gonorrhoeae, BIRGIT Negative Normal Negative [facility] Comment on above: Performed By: #### C T/NGNA #### [facility] [address] [place] [address] Dr. Mariah Garcia VAGINITIS/VAGINOSIS DNA PROB Bin 08-22-2021 Emily species Negative Normal Negative [facility] Comment on above: Performed By: #### V AGINT #### [facility] [address] [place] [address] Dr. Mariah Garcia Gardnerella vaginalis Negative Normal Negative [facility] Comment on above: Performed By: #### V AGINT #### [facility] [address] [place] [address] Dr. Mariah Garcia Trichomonas vaginalis Negative Normal Negative [facility] Comment on above: Performed By: #### V AGINT #### [facility] [address] [place] [address] Dr. Mariah Garcia Covid-19 PCR (CVDTB)on SARS-CoV-2 (COVID-19) RNA BIRGIT+probe Ql (Unsp spec) Not detected Normal NOT DETECTED [facility] Comment on above: Result Comment: This test is not yet approved or cleared by the [place] FDA. When there are no FDA-approved or cleared tests available, and other criteria are met, FDA can make tests available under an emergency access mechanism called an Emergency Use Authorization (EUA). The EUA for this test is supported by the Power Screwdriver Operator of Health and Human Service's (HHS's) declaration [...] consistent with SARS-CoV-2. Performed By: #### C [facility] #### [facility] [address] [place] [address] Dr. Mariah Garcia Vital Signs Date Time Vital Sign Value Performing Clinician Facility 10-30-2023 10:43-0400 Body height 167.6 cm Sangeeta Burrell MD Work Phone: [facility] 10-30-2023 10:43-0400 Body mass index (BMI) [Ratio] 51.17 kg/m2 Sangeeta Burrell MD Work Phone: [facility] 10-30-2023 10:43-0400 Body weight 143.79 kg Sangeeta Burrell MD Work Phone: [facility] 12-26-2022 22:50-0400 Body temperature 98.06 [degF] [place] [facility] 12-26-2022 22:50-0400 Diastolic blood pressure 99 mm[Hg] [place] [facility]ity[facility]arez[facility] Labsn [facility] 12-26-2022 22:50-0400 Heart rate 94 /min juarezMill River Labsdante [facility] 12-26-2022 22:50-0400 Respiratory rate 16 /min Im[employer] [facility] 12-26-2022 22:50-0400 SaO2% (BldA) [Mass fraction] 99 % [place] [facility] [employer] 12-26-2022 22:50-0400 Systolic blood pressure 147 mm[Hg] [employer] [facility] Encounters Encounter Date Encounter Type Care Provider Facility Start: 09-12-2024 End: 09-12-2024 ambulatory Sil Fairchild [facility] Work Phone: Start: 09-12-2024 End: 09-12-2024 Departed Referred Sil Fairchild PA-C Work Phone: [facility] Start: 08-05-2024 End: 08-05-2024 ambulatory MD Paolo Ortiz Facility:[facility] Start: 06-03-2024 End: 06-03-2024 ambulatory MD Paolo Ortiz Facility:[facility] Start: 05-06-2024 End: 05-06-2024 ambulatory MD Paolo Ortiz Facility:[facility] Start: 04-29-2024 End: 04-29-2024 ambulatory MD Paolo Ortiz Facility:[facility] Start: 03-18-2024 End: 03-18-2024 ambulatory MD Paolo Ortiz Facility:[facility] Start: 02-13-2024 End: 02-13-2024 ambulatory Yolanda L Jeremy Facility:[facility] Start: 02-12-2024 End: 02-12-2024 ambulatory Yolanda L Jeremy Facility:[facility] Start: 01-05-2024 ambulatory CRISTINO DIAZ Facility :[facility] Start: 12-11-[facility] Comment on above: Smoking Cessation Start: 12-07-2023 End: 12-07-2023 ambulatory CRISTINO DIAZ Facility:[facility] Start: 12-07-2023 End: 12-07-2023 Patient encounter procedure CRISTINO DIAZ [facility] Start: 12-06-2023 End: 12-06-2023 ambulatory HUY ESCOTO Facility:[facility] Start: 11-15-2023 End: 11-16-2023 ambulatory SANGEETA BURRELL Facility:[facility] Start: 11-15-2023 Encounter for other preprocedural examination SANGEETA BURRELL [facility] Start: 11-13-2023 End: 11-13-2023 ambulatory SHERYL LANGLEYENS Facility:[facility] Start: 11-06-2023 End: 11-06-2023 ambulatory CRISTINO DIAZ Facility:[facility] Start: 11-06-2023 End: 11-06-2023 Patient encounter procedure CRISTINO DIAZ [facility] Start: 11-01-2023 End: 11-01-2023 Admission to same day surgery center Rick Carpio MD Work Phone: General Surgery Comment on above: Class 3 severe obesi ty without serious comorbidity with body mass index (BMI) of 50.0 to 59.9 in adult, unspecified obesity type (HCC) (Primary Dx) Start: 11-01-2023 End: 11-01-2023 ambulatory RICK CARPIO Facility:[facility] Start: 11-01-2023 End: 11-01-2023 Telemedicine consultation with patient Rick Carpio MD Work Phone: General Surgery Start: 10-30-2023 End: 10-30-2023 ambulatory SANGEETA BURRELL Facility:[facility] Start: 10-30-2023 End: 10-30-2023 Patient encounter procedure Sangeeta Burrell MD Work Phone: Endocrinology BMI Comment on above: Preop testing (Prima ry Dx); Morbid obesity with BMI of 50.0-59.9, adult (HCC); Snoring; Fatigue, unspecified type Start: 10-30-2023 End: 10-30-2023 Patient encounter status Sangeeta Burrell MD Work Phone: [facility] Work Phone: Start: 10-30-2023 End: 10-30-2023 Telemedicine consultation with patient Sangeeta Burrell MD Work Phone: Endocrinology BMI Start: 10-27-2023 End: 10-27-2023 ambulatory CRISTINO DIAZ Facility:Behavioral [facility] Start: 10-27-2023 End: 10-27-2023 Patient encounter procedure CRISTINO DIAZ [facility] Start: 10-23-2023 End: 10-23-2023 ambulatory MD Paolo Ortiz Facility:[facility] Start: 10-12-2023 End: 10-12-2023 ambulatory CRISTINO DIAZ Facility:Behavioral Health Start: 10-12-2023 End: 10-12-2023 Patient encounter procedure CRISTINO DIAZ [facility] Start: 09-29-2023 ambulatory CRISTINO DIAZ Facility :Behavioral Health Start: 09-19-2023 ambulatory MD Paolo Ortiz Facility :Behavioral Health Start: 09-11-2023 End: 09-11-2023 ambulatory MD Paolo Ortiz Facility:[facility] Start: 12-26-2022 End: 12-27-2022 Emergency department patient visit Dinesh Whatley [facility] Start: 08-20-2021 End: 08-20-[address] CHAD STRONG Facility:H1 Start: 04-06-2021 End: 04-06-[address] CHAD STRONG Facility:[facility]1 Procedures Date Procedure Procedure Detail Performing Clinician None (qualifier value) Yamilka Whatley Surgery (qualifier value) ROXANA DIAZ Comment on above: left foot Plan of Treatment Date Care Activity Detail Author Start: 09-12-2024 Urine culture [facility] Start: 09-12-2024 Bacteria identified in Urine by Culture Urine Culture [facility] Start: 03-03-2024 Influenza vaccination Influenz a Vaccine (Season Ended) [facility] Start: 01-22-2024 End: 01-22-2024 Admission to same day surgery center 01/22/2024 8:00 AM EDT [facility] Surgery [address] [place] [address] [place] [address] Red/Gutnick/6mon/Buckey e General Surgery Comment on above: Red/Gutnick/6mon/Buc keye Start: 01-17-2024 End: 01-17-2024 ambulatory 01/17/2024 3:00 PM EDT [facility] Neurology [address] [place] [address] Britt Villalobos MD [address] [place] [address] Preop testing [Z01.818] Neurology Comment on above: Preop testing [Z01.8 18] Start: 12-29-2023 End: 12-29-2023 Patient encounter procedure Radiology Comment on above: Preop testing [Z01.8 18] no spl, chkd jmg Pre op testing [Z01.818] Start: 12-26-2023 End: 12-26-2023 Nursing evaluation of patient and report 12/26/2023 10:00 AM EDT Nurse Visit Cardiology [address] [place] [address] Ana, Nurse Card [facility] [address] [place] [address] Preop testing [Z01.818] Cardiology Comment on above: Preop testing [Z01.8 18] Start: 12-13-2023 End: 12-13-2023 Admission to same day surgery center 12/13/2023 9:30 AM EDT [facility] General Surgery [address] [place] [address] Eloisa Fam, [facility] [address] [place] [id number] Red/Gutnick/6mon/Buckey e General Surgery Comment on above: Red/Gutnick/6mon/Buc keye Start: 11-30-2023 End: 11-30-2023 Patient encounter procedure 11/30/2023 12:30 PM EDT [facility] Endocrinology BMI [address] [place] [address] Domenica Dent, CORNELIA [address] [place] [address] Red/Gutnick/6mon/Buckey e Endocrinology BMI Comment on above: Red/Gutnick/6mon/Buc keye Start: 11-16-2023 End: 11-16-2023 Patient encounter procedure 11/16/2023 10:00 AM EDT Office Visit Neurology [address] [place] [address] Preop testing [Z01.818] Neurology Comment on above: Preop testing [Z01.8 18] Start: 11-03-2023 End: 11-03-2023 ambulatory 11/03/2023 11:30 AM EDT Results Only [facility] [address] [place] [address] [place] [address] [facility] Start: 11-01-2023 End: 11-01-2023 Admission to same day surgery center 11/01/2023 12:40 PM EDT [facility] General Surgery [address] [place] [address] [place] [address] [place], [place] [id number] Red/Gutnick/6mon/Buckey e General Surgery Comment on above: Red/Gutnick/6mon/Buc keye Start: 10-30-2023 End: 10-29-2024 25-hydroxyvitamin D3 [Mass/volume] in Serum or Plasma VITAMIN D 25 HYDROXY Lab Routine Preop testing Snoring Fatigue, unspecified type Morbid obesity with BMI of 50.0-59.9, adult (HCC) Expected: 10/30/2023, Expires: 10/29/2024 [facility] Comment on above: Expected: 10/30/2023 , Expires: 10/29/2024 Start: 10-30-2023 End: 10-29-2024 CBC panel - Blood by Automated count COMPLETE BLOOD COUNT Lab Routine Preop testing Snoring Fatigue, unspecified type Morbid obesity with BMI of 50.0-59.9, adult (HCC) Expected: 10/30/2023, Expires: 10/29/2024 [facility] Comment on above: Expected: 10/30/2023 , Expires: 10/29/2024 Start: 10-30-2023 End: 10-29-2024 Cobalamin (Vitamin B12) [Mass/volume] in Serum or Plasma VITAMIN B12 Lab Routine Preop testing Snoring Fatigue, unspecified type Morbid obesity with BMI of 50.0-59.9, adult (HCC) Expected: 10/30/2023, Expires: 10/29/2024 [facility] Comment on above: Expected: 10/30/2023 , Expires: 10/29/2024 Start: 10-30-2023 End: 10-29-2024 Comprehensive metabolic 2000 panel - Serum or Plasma COMPREHENSIVE METABOLIC PANEL Lab Routine Preop testing Snoring Fatigue, unspecified type Morbid obesity with BMI of 50.0-59.9, adult (HCC) Expected: 10/30/2023, Expires: 10/29/2024 [facility] Comment on above: Expected: 10/30/2023 , Expires: 10/29/2024 Start: 10-30-2023 End: 10-29-2024 Folate [Mass/volume] in Serum or Plasma FOLATE, SERUM Lab Routine Preop testing Snoring Fatigue, unspecified type Morbid obesity with BMI of 50.0-59.9, adult (HCC) Expected: 10/30/2023, Expires: 10/29/2024 [facility] Comment on above: Expected: 10/30/2023 , Expires: 10/29/2024 Start: 10-30-2023 End: 10-29-2024 Hemoglobin A1c in Blood HEMOGLOBIN A1C Lab Routine Preop testing Snoring Fatigue, unspecified type Morbid obesity with BMI of 50.0-59.9, adult (HCC) Expected: 10/30/2023, Expires: 10/29/2024 [facility] Comment on above: Expected: 10/30/2023 , Expires: 10/29/2024 Start: 10-30-2023 End: 10-29-2024 Iron and Iron binding capacity panel - Serum or Plasma IRON AND TIBC Lab Routine Preop testing Snoring Fatigue, unspecified type Morbid obesity with BMI of 50.0-59.9, adult (HCC) Expected: 10/30/2023, Expires: 10/29/2024 [facility] Comment on above: Expected: 10/30/2023 , Expires: 10/29/2024 Start: 10-30-2023 End: 10-29-2024 Lipid 1996 panel - Serum or Plasma LIPID PANEL BASIC Lab Routine Preop testing Snoring Fatigue, unspecified type Morbid obesity with BMI of 50.0-59.9, adult (HCC) Expected: 10/30/2023, Expires: 10/29/2024 [facility] Comment on above: Expected: 10/30/2023 , Expires: 10/29/2024 Start: 10-30-2023 End: 10-29-2024 Parathyrin.intact [Mass/volume] in Serum or Plasma PTH INTACT Lab Routine Preop testing Snoring Fatigue, unspecified type Morbid obesity with BMI of 50.0-59.9, adult (HCC) Expected: 10/30/2023, Expires: 10/29/2024 [facility] Comment on above: Expected: 10/30/2023 , Expires: 10/29/2024 Start: 10-30-2023 End: 10-29-2024 Thyrotropin [Units/volume] in Serum or Plasma THYROID STIMULATING HORMONE Lab Routine Preop testing Snoring Fatigue, unspecified type Morbid obesity with BMI of 50.0-59.9, adult (HCC) Expected: 10/30/2023, Expires: 10/29/2024 [facility] Comment on above: Expected: 10/30/2023 , Expires: 10/29/2024 Start: 10-30-2023 End: 01-29-2024 VITAMIN B1 (THIAMINE), WHOLE BLOOD VITAMIN B1 (THIAMINE), WHOLE BLOOD Lab Routine Preop testing Snoring Fatigue, unspecified type Morbid obesity with BMI of 50.0-59.9, adult (HCC) Expected: 10/30/2023, Expires: 01/29/2024 [facility] Comment on above: Expected: 10/30/2023 , Expires: 01/29/2024 Start: 07-03-2023 Behavioral Health Screening Behavioral Health Screening [facility] Start: 03-03-2023 Covid-19 Vaccine ( season) Covid-19 Vaccine () [facility] Start: 04-14-2021 Urine microalbumin profile DTaP,Tdap,Td Vaccine (7 - Td or Tdap) [facility] Start: 02-19-2020 Screening for malign ant neoplasm of cervix [facility] Start: 2017 Hepatitis C screening Hepatitis C Sc reening [facility] Start: 2017 HIV screening HIV Screening [facility] Start: 2013 Peds To Adult Transition Annual Assessment Peds To Adult Transition Annual Assessment [facility] Start: 2011 Peds To Adult Transition Initial Discussion Peds To Adult Transition Initial Discussion [facility] End: 10-29-2024 ECG COMPLETE ECG COMPLETE ECG Routine Preop testing Snoring Fatigue, unspecified type Morbid obesity with BMI of 50.0-59.9, adult (HCC) 1 Occurrences starting 10/30/2023 until 10/29/2024 [facility] Comment on above: 1 Occurrences starti ng 10/30/2023 until 10/29/2024 End: 10-29-2024 HOME SLEEP APNEA TEST (HSAT) HOME SLEEP APNEA TEST (HSAT) Procedures Routine Preop testing Snoring Fatigue, unspecified type Morbid obesity with BMI of 50.0-59.9, adult (HCC) 1 Occurrences starting 10/30/2023 until 10/29/2024 [facility] Work Phone: Comment on above: 1 Occurrences starti ng 10/30/2023 until 10/29/2024 End: 11-28-2024 US Abdomen RUQ US ABD RIGHT UPPER QUADRANT Radiology Routine Preop testing Snoring Fatigue, unspecified type Morbid obesity with BMI of 50.0-59.9, adult (HCC) 1 Occurrences starting 10/30/2023 until 11/28/2024 [facility] Comment on above: 1 Occurrences starti ng 10/30/2023 until 11/28/2024 End: 11-28-2024 XR Chest PA and Lateral XR CHEST 2V FRONTAL/LAT Radiology Routine Preop testing Snoring Fatigue, unspecified type Morbid obesity with BMI of 50.0-59.9, adult (HCC) 1 Occurrences starting 10/30/2023 until 11/28/2024 [facility] Comment on above: 1 Occurrences starti ng 10/30/2023 until 11/28/2024 Immunizations Immunization Date Immunization Notes Care Provider Paulino garcía 06-02-2015 influenza virus vacc ine, unspecified formulation Sangeeta Burrell MD Work Phone: [facility] Payers Date Payer Category Payer Self-pay 2018 Medicaid [id number] 1999 Unknown [id number] 2.16.84 [id number] 1999 Unknown [id number] 2.16.84 0.1.997549.3.579.2.593 1999 Unknown [id number] 2.16.8 40.1.423190.3.579.2.727 1999 Unknown [id number] 2.16.8 40.1.842589.3.579.2.727 1999 Unknown [id number] 2.16.8 40.1.847294.3.579.2.727 1999 Unknown [id number] 2.16.8 40.1.449334.3.579.2.727 1999 Unknown [id number] 2.16.8 40.1.043685.3.579.2.727 1999 Unknown [id number] 2.16.8 40.1.384610.3.579.2.727 1999 Unknown [id number] 2.16.8 40.1.239276.3.579.2.727 1999 Unknown [id number] 2.16.8 40.1.875788.3.579.2.727 1999 Unknown [id number] 2.16.8 40.1.080120.3.579.2.727 1999 Unknown [id number] 2.16.8 40.1.836170.3.579.2.727 1999 Unknown [id number] 2.16.8 40.1.821624.3.579.2.727 1999 Unknown [id number] 2.16.8 40.1.430611.3.579.2.727 1999 Unknown [id number] 2.16.8 40.1.331981.3.579.2.727 1999 Unknown [id number] 2.16.8 40.1.294756.3.579.2.727 1999 Unknown [id number] 2.16.8 40.1.610623.3.579.2.727 1999 Unknown [id number] 2.16.8 40.1.341858.3.579.2.727 1959 Unknown [id number] Social History Date Type Detail Facility Tobacco smoking status [facility] Start: 10-24-2023 End: 12-05-2023 Sex Assigned At Female [facility] Start: 09-11-2023 Tobacco smoking status Ex-smoker (fi nding) [facility] Tobacco smoking status Never [facility] Tobacco smoking stat [facility] Tobacco smoking consumption unknown [facility] Start: 10-24-2023 End: 12-05-2023 History of Social function [facility] Start: 1999 Sex Assigned At Female C [facility] Start: 10-23-2023 Gender identity Identifies as female gender (finding) [facility] Start: 10-23-2023 Sexual orientation Bisexual (finding ) [facility] Start: 12-10-2020 Tobacco smoking stat us UTIS Smoker (finding) [facility] Start: 09-14-2024 Sex Female (finding) [facility] Functional Status Date Assessment Result Facility 12-26-2022 Functional Status N/A [facility] Clinical Notes 12-27-2022 to 06-03-2024 Telephone Encounter - Shweta Keene [facility] ED - 12/11/2023 8:08 AM EDTTelephone Encounter - Maddie DsouzaRewalon [facility] ED - 12/11/2023 8:08 AM EDTPatient Instructions [...] heart.org ??? National Heart, Lung, and Blood Call: nhlbi.nih.gov This information is not intended to replace advice given to you by your health care provider. Make sure you discuss any questions you have with your health care provider. Document Revised: 03/09/2023 Document Reviewed: 03/02/2023 Elsevier Patient Education ? 2023 [employer] [facility] 05-06-2024 Note Patient Education Nutrition BMI [...] heart.org ??? National Heart, Lung, and Blood Call: nhlbi.nih.gov This information is not intended to replace advice given to you by your health care provider. Make sure you discuss any questions you have with your health care provider. Document Revised: 03/09/2023 Document Reviewed: 03/02/2023 [employer] Patient Education ? 2023 [employer] [facility] 03-18-2024 Note Patient Education Nutrition BMI [...] heart.org ? National Heart, Lung, and Blood Call: nhlbi.nih.gov This information is not intended to replace advice given to you by your health care provider. Make sure you discuss any questions you have with your health care provider. Document Revised: 03/09/2023 Document Reviewed: 03/02/2023 ElsePo[employer] Patient Education ? 2023 [employer] [facility] 12-11-2023 Telephone encounter Note Smoking Cessation Navigation Outcome of contact: Left Message Comments: A voicemail has been left for this patient regarding Tobacco Cessation support options. If this patient has any further questions they can email us at [email or web address] or call us at [phone]. eHealth Assistant Director Of Financial Aid/Smoking Cessation Navigator: [facility] 12-11-2023 Miscellaneous Notes Smoking Cessation Navigation Outcome of contact: Left Message Comments: A voicemail has been left for this patient regarding Tobacco Cessation support options. If this patient has any further questions they can email us at [email or web address] or call us at [phone]. eHealth Assistant Director Of Financial Aid/Smoking Cessation Navigator: Maddiese [facility] documented in this encounter [facility] 12-06-2023 Note HNO ID: [id number] Author: HUY ESCOTO PSYD Service: ? Author Type: Psychologist Type: Progress Notes Filed: 12/07/2023 09:53 Note Text: [facility] BARIATRIC SURGERY BEHAVIORAL HEALTH EVALUATION DATE OF SERVICE: 12/06/2023 TIME OF SERVICE: 3:00PM to 4:20PM COST CENTER: [facility] CPT CODE: - 02963 Brief Emotional/Behavioral Assessment with scoring/documentation [id number] Virtual Psych Diagnostic Eval BILLING CODE: ENDO PSYL MAIN Tigist BMI Surgical Pathway Visit type: Psychology Visit SESSION #: 1 The patient signed the Informed Consent for Psychological Evaluation AND Care Form via [facility] (see consent dated 12/05/23), and the behavioral health care insurance benefits, fees for service, emergency procedures, and the limits of confidentiality that may pertain with any given case were discussed with the patient. The patient was given a copy of the consent form via [facility]. I have communicated my name and active licensure. The patient's identity and physical location were verified at the time of this visit. Either the patient or their legal phlebotomy services representative has been informed of the risks [...] technology to benefit from virtual format. Platform: Chatty for [employer] Address of Patient During Time of Virtual Visit: Pt home at [address] [place] [address] Emergency Contact: Cari Escamilla (Grandparent) at IDENTIFYING [...] with any previou (more content not included)... [facility] 11-13-2023 Note HNO ID: [id number] Author: SHERYL WU, PhD Service: ? Author Type: Psychologist Type: Progress Notes Filed: 11/13/2023 15:38 Note Text: [facility] Bariatric Behavioral Services Progress Note November 13, 2023 Patient did not check in for scheduled appointment. This visit will be marked as a no-show. Sheryl Wu, Ph.D. Clinical Psychologist [facility] 11-01-2023 History of Presen t illness Narrative RICK CARPIO MD, FACS, [facility] CELL: [phone] OFFICE: [phone] FAX: [phone] NEW PATIENT VIRTUAL CONSULT VISIT Consultation requested by Dr. Paolo Ortiz for an opinion regarding obesity therpay. My final recommendations will be communicated back to the requesting physician by way of shared Medical record or letter to requesting physician via US mail. This is a virtual visit using [facility] video visit. It required patient-provider interaction for the medical decision making as documented below. I have communicated my name and active licensure. The patient's identity and physical location were verified at the time of this visit. Either the patient or their legal phlebotomy services representative has been informed of the risks [...] RICK CARPIO MD documented in this encounter [facility] 11-01-2023 Note HNO ID: [id number] Author: RICK CARPIO MD Service: ? Author Type: Physician Type: Progress Notes Filed: 11/01/2023 12:54 Note Text: RICK CARPIO MD, FACS, [facility] CELL: [phone] OFFICE: [phone] FAX: [phone] NEW PATIENT VIRTUAL CONSULT VISIT Consultation requested by Dr. Paolo Ortiz for an opinion regarding obesity therpay. My final recommendations will be communicated back to the requesting physician by way of shared Medical record or letter to requesting physician via US mail. This is a virtual visit using [facility] video visit. It required patient-provider interaction for the medical decision making as documented below. I have communicated my name and active licensure. The patient's identity and physical location were verified at the time of this visit. Either the patient or their legal phlebotomy services representative has been informed of the risks [...] type: Bariatric Surgeon Visit RICK CARPIO MD [facility] 10-30-2023 Instructions Sangeeta Burrell MD - 10/30/2023 11:01 AM EDT INSTRUCTIONS: 1) Please contact me (Dr. Burrell) if you have not heard about your test results within a few days after you had them done. Thank you: Contact information: Bariatric and Metabolic Call M61/Attention: Dr. Burrell [address] [place] [address] 2) Please check with your insurance company regarding cost/coverage of any tests ordered prior to having them completed. Sher Escamilla , Thank you for completing your visit today and we welcome you to the surgical program. We are sure that you will still have some additional questions and encourage you to reach out to your care provider via [employer] OR your Patient Navigator. The contact information [...] free to ask for a hard copy. [email or web address] Once you complete all of the requirements (testing, consultations, diet, etc) from each provider, please call [phone] and select option #5 to initiate insurance approval. Also, if you have any questions along the way, we encourage you to join our weekly Navigation webinar every Monday from 12:00 pm - 1:00 pm. This webinar will give you an opportunity to chat with your patient navigator and learn about your specific program requirements. The link for this webinar is below: [email or web address] Please note scheduling information It is important to keep track of your scheduled appointments to ensure successful completion of our surgical program. Any missed appointments can further delay your pre-surgical work-up. [facility] does offer an opt-in option for getting text message appointment reminders. Please follow the link below if you would like to opt into this service. [email or web address] As part of your [...] these tests. You may call your local [facility] to get an appointment. - Lab work- No appointment is needed for this, you may complete at any [facility]. These are usually fasting labs, please be sure to fast (only water permitted) for 10-12 hours prior to the test. -Sleep Study- Please call [phone] or [phone] to get this appointment set up. -Sleep Medicine Consult- (Only needed if sleep study confirms sleep apnea) Please call [phone] or [phone] to schedule an appointment. Any testing that is completed outside of [facility] will need faxed to [phone]. We look forward to working with you on this journey, Sangeeta Burrell MD documented in this encounter [facility] 10-30-2023 Note HNO ID: [id number] Author: SANGEETA BURRELL MD Service: ? Author Type: Physician Type: Progress Notes Filed: 10/30/2023 17:03 Note Text: I have communicated my name and active licensure. The patient's identity and physical location were verified at the time of this visit. 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 [facility] 10-30-2023 History of Presen t illness Narrative I have communicated my name and active licensure. The patient's identity and physical location were verified at the time of this visit. 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 -tobacco use: vape-has been talking her doctor; ALL: See [facility]uff[facility]CODY LABS: IMAGING: PROC: CARDIAC: MEDS: See Epic [...] cardiac, valvular or vascular issues *No h/o NM, CHF,NM;no cp/palpitations Respiratory: Denies any known h/o lung [...] other psychiatric problems Other providers: -PCP -Ob-gyne -disease intervention specialist occasionally (had her surgery on her [...] which included preparing to see the patient, [id number] patient care, completing clinical documentation, obtaining and/or reviewing separately obtained history, counseling and educating the patient/family/caregiver, ordering medications, tests, or procedures, and care coordination (not separately reported). documented in this encounter [facility] 12-27-2022 Evaluation + Plan note Extrac [...] Date:03/02/2023 09:40:00 AM Scheduled Provider:Paolo Ortiz MD Location:[facility] Appointment Type: New Patient - Adult [facility]06-27-[facility]23 Hospital Discharge instructions Patient Education 12/27/2022 [...] may be recommended to support your foot. Nzzi-kaz-gyivexs anti-inflammatory medicines may also be recommended for [...] sitting or lying down. General instructions Take kzoi-adt-knylyaz and prescription medicines only as told by [...] provider. Document Revised: 09/22/2021 Document Reviewed: 09/22/2021 [employer] Patient Education 2022 [employer]. Follow Up Care 12/26/2022 22:46:10 With:XXXX NONE [...] you develop any new or worsening symptoms. [facility] Future Appointments Appointment Date:10/23/2023 09:30:00 AM Scheduled Provider:Paolo Ortiz MD Location:[facility] [place] Appointment Type: Open [facility] Behavioral Health evaluation + Plan note Future Appointments Appointment Date:11/23/2023 01:00:00 PM Scheduled Provider:CRISTINO VARELA Location:[facility] Behavioral Health Peds Appointment Type: Video Visit Therapy 60 [facility] Behavioral Health evaluation note* Diagnosis Preop testing- Primary Preoperative examination, unspecified Morbid obesity with BMI of 50.0-59.9, adult (HCC) Morbid obesity Snoring Other dyspnea and respiratory abnormality Fatigue, unspecified type documented in this encounter [facility] note* Diagnosis Class 3 severe obesity without serious comorbidity with body mass index (BMI) of 50.0 to 59.9 in adult, unspecified obesity type (HCC)- Primary documented in this encounter [facility] noteNo assessment information availableOhio[facility] Work Phone: Hospital course Narrative No data available for this section [facility] No data available for this section [facility] progress note No data available for this section [facility] Outpatient Procedure (Routine) - Pending Review Specialty Diagnoses / Procedures Referred By Terrance t Referred To [facility] Diagnoses Preop testing Snoring Fatigue, unspecified type Morbid obesity with BMI of 50.0-59.9, adult (HCC) Procedures ECG COMPLETE ECG ROUTINE ECG W/LEAST 12 LDS W/I&R Sangeeta Burrell MD [address] [facility] [id number] [facility] Call [address] [place] [address] Referral ID Status Reason Start Date Expiration Date Visits Requested Visits Authorized [id number] Pending Review Auto-Generat ed Referral 10/30/2023 10/29/2024 1 1 * Diagnostic Procedure Only (Routine) - Pending Review Specialty Diagnoses / Procedures Referred By Terrance carter Referred To Contact [facility] Diagnoses Preop testing Snoring Fatigue, unspecified type Morbid obesity with BMI of 50.0-59.9, adult (HCC) Procedures US ABD RIGHT UPPER QUADRANT US ABDOMINAL REAL TIME W/IMAGE LIMITED Sangeeta Burrell MD [address] [place] [address] [facility] [place] [address] Referral ID Status Reason Start Date Expiration Date Visits Requested Visits Authorized [id number] Pending Review Auto-Generat ed Referral 10/30/2023 11/28/2024 1 1 * Consult, Test, Treat (Routine) - Authorized Specialty Diagnoses / Procedures Referred By Terrance carter Referred To Contact Diagnoses Preop testing Snoring Fatigue, unspecified type Morbid obesity with BMI of 50.0-59.9, adult (HCC) Procedures CONSULT TO SLEEP MEDICINE - ADULT OFFICE/OUTPATIENT [facility] 60 MINUTES Sangeeta Burrell MD [address] [place] [id number] Referral ID Status Reason Start Date Expiration Date Visits Requested Visits Authorized [id number] Authorized PCP Requested Referral 10/30/2023 10/29/2024 1 1 * Diagnostic Procedure Only (Routine) - Pending Review Specialty Diagnoses / Procedures Referred By Terrance carter Referred To Contact [facility] Diagnoses Preop testing Snoring Fatigue, unspecified type Morbid obesity with BMI of 50.0-59.9, adult (HCC) Procedures HOME SLEEP APNEA TEST (HSAT) SLEEP STD AIRFLOW HRT RATE&O2 SAT EFFORT Sangeeta Phan MD [address] [place] [address] [facility] [address] [place] [address] Referral ID Status Reason Start Date Expiration Date Visits Requested Visits Authorized [id number] Pending Review Auto-Generat ed Referral 10/30/2023 10/29/2024 1 1 [facility] Summary Purpose Family History No Family History Records Found No data available for this section No data available for this section No data available for this section No data available for this section No Family History Records FoundNo Family History Records FoundNo Family History Records Found Advance Directives No Advanced Directives Records Found Advance Directive Response Recorded Date/ Time Advance Directives No December 10 3:35am Additional Source Comments INFORMATION SOURCE (unrecogn ized section and content) DATE CREATED AUTHOR 08/26/2021 [facility] DATE CREATED AUTHOR AUTHOR'S ORGANIZ ATION 12/11/2023 [facility] DATE CREATED AUTHOR AUTHOR'S ORGANIZ ATION 08/06/2024 [facility] DATE CREATED AUTHOR AUTHOR'S ORGANIZ ATION 09/16/2024 [facility] Patient Care team informatio n (unrecognized section and content) Team Status: Inactive Member Role Status Dates Sil Fairchild PA-C Attending Provider Active Start: September 12, 2024 End: September 12, 2024 [employer] Relationship Specialty Start Date End Date Paolo Ortiz MD [address] [place] [address] PCP - General Family Medicine 11/01/23 Personnel Name: Paolo Ortiz MD Address: Address: [address] [place] [address]- Source Comments (unrecognize d section and content) In the event this informatio n is protected by the Federal Confidentiality of Alcohol and Drug Abuse Patient Records regulations: The Federal rules restrict any use of the information to criminally investigate or prosecute any alcohol or drug abuse patient.[facility] the event this information is protected by the Federal Confidentiality of Alcohol and Drug Abuse Patient Records regulations: The Federal rules restrict any use of the information to criminally investigate or prosecute any alcohol or drug abuse patient.[facility] the event this information is protected by the Federal Confidentiality of Alcohol and Drug Abuse Patient Records regulations: The Federal rules restrict any use of the information to criminally investigate or prosecute any alcohol or drug abuse patient.[facility] Reason for Visit (unrecogniz ed section and content) Reason Comments New Patient Reason Comments Obesity Reason Comments Smoking Cessation Goals (unrecognized section and content) Goals may be documented in a n alternate section FOR RECORDS PERTAINING TO PATIENTS WHO ARE [...] BE BASED ON THE PRIMARY CLINICAL RECORDS. [facility]. provides no warranty or guarantee of the accuracy or completeness of information in this document.
[2024-10-10 20:11] VITALS: BP 157/109; PULSE 84; TEMP 36.9; O2SAT 99; BMI 51.4
--- NOTE | 2024-10-10 20:15 | PC.NURSE ---
this patient complains of sore throat and abdomen pain onset this morning
--- NOTE | 2024-10-10 20:24 | PC.NURSE ---
this patient informed of the plan of care with throat swab and a urine sample i swab this patient's throat and i sent this to lab dept. this patient was unable to provide a urine sample at this time
--- NOTE | 2024-10-10 20:32 | ED.URI1 ---
Documented by User: TERI Huertas 10/10/24 21:06 HPI - URI/Sore Throat General Chief Complaint: Upper Respiratory Infection Stated Complaint: VOMITING, DIARRHEA Time Seen by Provider: 10/10/24 20:09 Source: patient Limitations: no limitations History of Present Illness HPI Narrative: Patient is a 24-year-old female who is well-known to this emergency department who presents for a 1 day history of sore throat, nasal congestion, nausea, diarrhea and abdominal pain. She has not had any vomiting, she denies fevers. She has no significant abdominal pain at this time. She states she has diffuse occasionally sharp pain throughout the day associated with episodes of diarrhea. No sick contacts in the home. She has no concern for . Related Data Home Medications ?Medication ?Instructions ?Recorded ?Confirmed bupropion HCl 150 mg 24 hr tablet, 150 mg PO DAILY 11/12/23 12/26/23 extended release albuterol sulfate 90 mcg/actuation 2 puff inhalation Q6H PRN 06/14/24 06/14/24 aerosol inhaler shortness of breath or wheezing escitalopram oxalate 20 mg tablet 20 mg PO DAILY 06/14/24 06/14/24 Previous Rx's ?Medication ?Instructions ?Recorded benzonatate 200 mg capsule 200 mg PO TID PRN cough #10 caps 06/05/24 methylprednisolone 4 mg tablets in 4 mg PO DAILY #21 ea 06/05/24 a dose pack (Medrol (Anish)) amoxicillin 500 mg capsule 500 mg PO TID 10 days #30 caps 06/14/24 eqhqwkyaddzlzvq-bdzecqcsuebcrbc-FZ 10 ml PO Q6H PRN cold symptoms 06/14/24 2 mg-30 mg-10 mg/5 mL oral syrup #200 mL (Bromfed DM) dexamethasone 4 mg tablet 4 mg PO BID 5 days #10 tabs 06/14/24 ondansetron 4 mg disintegrating 4 mg PO Q6H PRN nausea and 06/14/24 tablet vomiting #12 tabs promethazine-DM 6.25 mg-15 mg/5 mL 5 ml PO Q6H PRN cough #118 mL 06/14/24 oral syrup ondansetron 4 mg disintegrating 4 mg PO Q6H PRN nausea and 09/12/24 tablet vomiting #12 tabs cephalexin 500 mg capsule 500 mg PO Q8H 7 days #21 caps 10/10/24 hyoscyamine sulfate 0.125 mg 0.125 mg PO Q6H PRN abdominal pain 10/10/24 tablet (Levsin) #12 tabs ondansetron 4 mg disintegrating 4 mg PO Q6H PRN nausea and 10/10/24 tablet vomiting #12 tabs Allergies Allergy/AdvReac Type Severity Reaction Status Date / Time Sulfa (Sulfonamide Allergy Hives Verified 10/10/24 20:11 Antibiotics) Review of Systems ROS Constitutional Denies: fever or chills Ears, nose, mouth, and throat Reports: throat pain and nasal congestion Cardiovascular Denies: chest pain Respiratory Reports: cough; Denies: shortness of breath Gastrointestinal Reports: abdominal pain, nausea and diarrhea; Denies: vomiting Musculoskeletal Denies: back pain Integumentary/Breast Denies: rash Neurological Denies: headache Hematologic/Lymphatic Denies: easy bruising or easy bleeding PFSH PFSH Social History Little interest or pleasure in doing things: not at all Feeling down, depressed, or hopeless: not at all Exam Narrative Exam Narrative: Gen.: Awake, alert, in no distress Head: Normocephalic, atraumatic ENT: Moist mucous membranes, bilateral TMs clear, no pharyngeal erythema or tonsillar edema Respiratory: No respiratory distress, lungs clear bilaterally Cardio: Regular rate and rhythm Gastrointestinal: Abdomen is soft, nondistended and nontender to palpation, no guarding or rebound. No McBurney's point tenderness Extremities: Moves extremities equally Psych: Normal mood and affect Neuro: No focal neuro deficit Skin: Warm, dry, intact Constitutional Vital Signs, click to edit/add: Last Vital Signs Temp 98.5 F 10/10/24 21:10 Pulse 75 10/10/24 21:10 Resp 17 10/10/24 21:10 BP 154/103 H 10/10/24 21:10 Pulse Ox 99 10/10/24 21:10 O2 Del Method Room Air 10/10/24 20:11 Course Vital Signs Vital signs: Vital Signs Temperature 98.4 F 10/10/24 20:11 Pulse Rate 84 10/10/24 20:11 Respiratory Rate 18 10/10/24 20:11 Blood Pressure 157/109 H 10/10/24 20:11 Pulse Oximetry 99 10/10/24 20:11 Oxygen Delivery Method Room Air 10/10/24 20:11 Temperature 98.5 F 10/10/24 21:10 Pulse Rate 75 10/10/24 21:10 Respiratory Rate 17 10/10/24 21:10 Blood Pressure 154/103 H 10/10/24 21:10 Pulse Oximetry 99 10/10/24 21:10 Oxygen Delivery Method Room Air 10/10/24 20:11 MDM - URI/Sore Throat MDM Narrative Medical decision making narrative: Patient given Zofran and Decadron for sore throat. Abdomen is soft and benign. Patient tolerated drinking fluids with no difficulty even before medication with Zofran. She had no episodes of emesis or diarrhea in the ER. Her urine specimen is consistent with UTI and strep screen is negative. She is placed on Keflex, Zofran, Levsin for diarrhea for home. Follow-up with PCP and return to the ER if symptoms change or worsen SUPERVISED APC VISIT, PHYSICIAN ATTESTATION: Based on the medical record the care appears appropriate. ? Medical Records Attestation: I reviewed the patient's medical records. Lab Data Attestation: I reviewed the patient's lab results. Labs: Lab Results 10/10/24 10/10/24 Range/Units 20:19 20:43 Urine Color Brown A (YELLOW) Urine Clarity Slightly cloudy A (CLEAR) Urine pH 6.5 (5.0-9.0) Ur Specific [place] 1.025 (1.005-1.025) Urine Protein 100 A (NEG/TRACE) mg/dL Urine Glucose (UA) Negative (NEGATIVE) mg/dL Urine Ketones Trace A (NEGATIVE) mg/dL Urine Occult Blood Large A (NEGATIVE) Urine Nitrite Negative (NEGATIVE) Urine Bilirubin Small A (NEGATIVE) Urine Urobilinogen 1.0 (0.2-1.0) EU/dL Ur Leukocyte Esterase Trace A (NEGATIVE) Urine RBC 20-50 A (0-2) #/HPF Urine WBC 0-2 A (NONE SEEN) #/HPF Ur Squamous Epith Cells Moderate A (NONE/RARE) #/LPF Urine Crystals None seen (None Seen) #/HPF Urine Bacteria Trace A (NONE SEEN) #/HPF Urine Casts None seen (NONE SEEN) #/LPF Urine Mucus Moderate A (NONE SEEN) Ur Culture Indicated? No Streptococcus Screen Negative Discharge Plan Discharge Chief Complaint: Upper Respiratory Infection Clinical Impression: UTI (urinary tract infection), Pharyngitis, Abdominal pain Patient Disposition: Home, Self-Care Time of Disposition Decision: 21:01 Condition: Good Prescriptions / Home Meds: New cephalexin 500 mg capsule 500 mg PO Q8H 7 Days Qty: 21 0RF hyoscyamine sulfate [Levsin] 0.125 mg tablet 0.125 mg PO Q6H PRN (Reason: abdominal pain) Qty: 12 0RF ondansetron 4 mg tablet,disintegrating 4 mg PO Q6H PRN (Reason: nausea and vomiting) Qty: 12 0RF No Action methylprednisolone [Medrol (Anish)] 4 mg tablets,dose pack 4 mg PO DAILY Qty: 21 0RF benzonatate 200 mg capsule 200 mg PO TID PRN (Reason: cough) Qty: 10 0RF escitalopram oxalate 20 mg tablet 20 mg PO DAILY albuterol sulfate 90 mcg/actuation HFA aerosol inhaler 2 puff INHALATION Q6H PRN (Reason: shortness of breath or wheezing) amoxicillin 500 mg capsule 500 mg PO TID 10 Days Qty: 30 0RF dexamethasone 4 mg tablet 4 mg PO BID 5 Days Qty: 10 0RF iynywgipnwtjxuu-raayfirik-EM [Bromfed DM] 2-30-10 mg/5 mL syrup 10 ml PO Q6H PRN (Reason: cold symptoms) Qty: 200 0RF ondansetron 4 mg tablet,disintegrating 4 mg PO Q6H PRN (Reason: nausea and vomiting) Qty: 12 0RF promethazine-DM 6.25-15 mg/5 mL syrup 5 ml PO Q6H PRN (Reason: cough) Qty: 118 0RF bupropion HCl 150 mg tablet extended release 24 hr 150 mg PO DAILY ondansetron 4 mg tablet,disintegrating 4 mg PO Q6H PRN (Reason: nausea and vomiting) Qty: 12 0RF Print Language: Citizen Of [place] Instructions: Urinary Tract Infection in Women (ED), Pharyngitis (ED) Referrals: PAOLO ORTIZ [Primary Care Provider] - 1 week Discharge Date/Time: 10/10/24 21:18 Documented by User: Jj Shelton MD 10/10/24 23:28 HPI - URI/Sore Throat General Chief Complaint: Upper Respiratory Infection Stated Complaint: VOMITING, DIARRHEA Time Seen by Provider: 10/10/24 20:09 Related Data Home Medications ?Medication ?Instructions ?Recorded ?Confirmed bupropion HCl 150 mg 24 hr tablet, 150 mg PO DAILY 11/12/23 12/26/23 extended release albuterol sulfate 90 mcg/actuation 2 puff inhalation Q6H PRN 06/14/24 06/14/24 aerosol inhaler shortness of breath or wheezing escitalopram oxalate 20 mg tablet 20 mg PO DAILY 06/14/24 06/14/24 Previous Rx's ?Medication ?Instructions ?Recorded benzonatate 200 mg capsule 200 mg PO TID PRN cough #10 caps 06/05/24 methylprednisolone 4 mg tablets in 4 mg PO DAILY #21 ea 06/05/24 a dose pack ([employer] (Anish)) amoxicillin 500 mg capsule 500 mg PO TID 10 days #30 caps 06/14/24 ohvwptwenqryiqy-zhpumbczymyfewf-SJ 10 ml PO Q6H PRN cold symptoms 06/14/24 2 mg-30 mg-10 mg/5 mL oral syrup #200 mL (Bromfed DM) dexamethasone 4 mg tablet 4 mg PO BID 5 days #10 tabs 06/14/24 ondansetron 4 mg disintegrating 4 mg PO Q6H PRN nausea and 06/14/24 tablet vomiting #12 tabs promethazine-DM 6.25 mg-15 mg/5 mL 5 ml PO Q6H PRN cough #118 mL 06/14/24 oral syrup ondansetron 4 mg disintegrating 4 mg PO Q6H PRN nausea and 09/12/24 tablet vomiting #12 tabs cephalexin 500 mg capsule 500 mg PO Q8H 7 days #21 caps 10/10/24 hyoscyamine sulfate 0.125 mg 0.125 mg PO Q6H PRN abdominal pain 10/10/24 tablet (Levsin) #12 tabs ondansetron 4 mg disintegrating 4 mg PO Q6H PRN nausea and 10/10/24 tablet vomiting #12 tabs Allergies Allergy/AdvReac Type Severity Reaction Status Date / Time Sulfa (Sulfonamide Allergy Hives Verified 10/10/24 20:11 Antibiotics) PFSH PFSH Social History Little interest or pleasure in doing things: not at all Feeling down, depressed, or hopeless: not at all Exam Constitutional Vital Signs, click to edit/add: Last Vital Signs Temp 98.5 F 10/10/24 21:10 Pulse 75 10/10/24 21:10 Resp 17 10/10/24 21:10 BP 154/103 H 10/10/24 21:10 Pulse Ox 99 10/10/24 21:10 O2 Del Method Room Air 10/10/24 20:11 Course Vital Signs Vital signs: Vital Signs Temperature 98.4 F 10/10/24 20:11 Pulse Rate 84 10/10/24 20:11 Respiratory Rate 18 10/10/24 20:11 Blood Pressure 157/109 H 10/10/24 20:11 Pulse Oximetry 99 10/10/24 20:11 Oxygen Delivery Method Room Air 10/10/24 20:11 Temperature 98.5 F 10/10/24 21:10 Pulse Rate 75 10/10/24 21:10 Respiratory Rate 17 10/10/24 21:10 Blood Pressure 154/103 H 10/10/24 21:10 Pulse Oximetry 99 10/10/24 21:10 Oxygen Delivery Method Room Air 10/10/24 20:11 MDM - URI/Sore Throat MDM Narrative Medical decision making narrative: Patient given Zofran and Decadron for sore throat. Abdomen is soft and benign. Patient tolerated drinking fluids with no difficulty even before medication with Zofran. She had no episodes of emesis or diarrhea in the ER. Her urine specimen is consistent with UTI and strep screen is negative. She is placed on Keflex, Zofran, Levsin for diarrhea for home. Follow-up with PCP and return to the ER if symptoms change or worsen SUPERVISED APC VISIT, PHYSICIAN ATTESTATION: Based on the medical record the care appears appropriate. I, Dr Shelton, have reviewed the above progress note and course of action in the ER; agree with the above. I have personally gone over history and physical, and discussed disposition and treatment plan with the PA. ? Lab Data Labs: Lab Results 10/10/24 10/10/24 Range/Units 20:19 20:43 Urine Color Brown A (YELLOW) Urine Clarity Slightly cloudy A (CLEAR) Urine pH 6.5 (5.0-9.0) Ur Specific [place] 1.025 (1.005-1.025) Urine Protein 100 A (NEG/TRACE) mg/dL Urine Glucose (UA) Negative (NEGATIVE) mg/dL Urine Ketones Trace A (NEGATIVE) mg/dL Urine Occult Blood Large A (NEGATIVE) Urine Nitrite Negative (NEGATIVE) Urine Bilirubin Small A (NEGATIVE) Urine Urobilinogen 1.0 (0.2-1.0) EU/dL Ur Leukocyte Esterase Trace A (NEGATIVE) Urine RBC 20-50 A (0-2) #/HPF Urine WBC 0-2 A (NONE SEEN) #/HPF Ur Squamous Epith Cells Moderate A (NONE/RARE) #/LPF Urine Crystals None seen (None Seen) #/HPF Urine Bacteria Trace A (NONE SEEN) #/HPF Urine Casts None seen (NONE SEEN) #/LPF Urine Mucus Moderate A (NONE SEEN) Ur Culture Indicated? No Streptococcus Screen Negative Discharge Plan Discharge Chief Complaint: Upper Respiratory Infection Clinical Impression: UTI (urinary tract infection), Pharyngitis, Abdominal pain Patient Disposition: Home, Self-Care Time of Disposition Decision: 21:01 Condition: Good Prescriptions / Home Meds: New cephalexin 500 mg capsule 500 mg PO Q8H 7 Days Qty: 21 0RF hyoscyamine sulfate [Levsin] 0.125 mg tablet 0.125 mg PO Q6H PRN (Reason: abdominal pain) Qty: 12 0RF ondansetron 4 mg tablet,disintegrating 4 mg PO Q6H PRN (Reason: nausea and vomiting) Qty: 12 0RF No Action methylprednisolone [Medrol (Anish)] 4 mg tablets,dose pack 4 mg PO DAILY Qty: 21 0RF benzonatate 200 mg capsule 200 mg PO TID PRN (Reason: cough) Qty: 10 0RF escitalopram oxalate 20 mg tablet 20 mg PO DAILY albuterol sulfate 90 mcg/actuation HFA aerosol inhaler 2 puff INHALATION Q6H PRN (Reason: shortness of breath or wheezing) amoxicillin 500 mg capsule 500 mg PO TID 10 Days Qty: 30 0RF dexamethasone 4 mg tablet 4 mg PO BID 5 Days Qty: 10 0RF gienziisuuxnliy-wyvhhlkls-UQ [Bromfed DM] 2-30-10 mg/5 mL syrup 10 ml PO Q6H PRN (Reason: cold symptoms) Qty: 200 0RF ondansetron 4 mg tablet,disintegrating 4 mg PO Q6H PRN (Reason: nausea and vomiting) Qty: 12 0RF promethazine-DM 6.25-15 mg/5 mL syrup 5 ml PO Q6H PRN (Reason: cough) Qty: 118 0RF bupropion HCl 150 mg tablet extended release 24 hr 150 mg PO DAILY ondansetron 4 mg tablet,disintegrating 4 mg PO Q6H PRN (Reason: nausea and vomiting) Qty: 12 0RF Print Language: Citizen Of [place] Instructions: Urinary Tract Infection in Women (ED), Pharyngitis (ED) Referrals: PAOLO ORTIZ [Primary Care Provider] - 1 week Discharge Date/Time: 10/10/24 21:18
[2024-10-10] MEDS: DEXAMETHASONE SOD PHOS 10 MG/ML VIAL PO (20:36)
[2024-10-10] MEDS: ONDANSETRON 4 MG RAPDIS TABLET SL (20:36)
--- NOTE | 2024-10-10 20:47 | PC.NURSE ---
this patient did provide a urine sample and i walked this urine sample down to lab dept this patient is aware that now waiting on all of the results to come back this patient voices no concerns and show no signs of distress
[2024-10-10 20:49] LABS: Bilirubin Urine SMALL (NEGATIVE); Blood Urine LARGE (NEGATIVE); Color Urine BROWN (YELLOW); Glucose Urine UA NEGATIVE (NEGATIVE); Ketones Urine TRACE mg/dL (NEGATIVE); Leukocyte Esterase Urine TRACE (NEGATIVE); Nitrite Urine NEGATIVE (NEGATIVE); Protein Urine 100 mg/dL (NEG/TRACE); Specific Gravity Urine 1.025 (1.005-1.025); pH Urine 6.5 (5.0-9.0)
[2024-10-10 20:52] LABS: Bacteria Urine TRACE #/HPF (NONE SEEN); Clarity Urine SLIGHTLY CLOUDY (CLEAR); Mucus Urine MODERATE (NONE SEEN); RBC Urine 20-50 #/HPF (0-2); WBC Urine 0-2 #/HPF (NONE SEEN)
[2024-10-10 20:53] LABS: Cast Seen? NONE SEEN #/LPF (NONE SEEN); Crystals Seen? None Seen #/HPF (None Seen); Squamous Epithelial Cell Urine MODERATE #/LPF (NONE/RARE); Urine Culture Indicated NO
[2024-10-10 20:54] LABS: Internal Control Within Normal Limits; Strep A Antigen Screen Negative
[2024-10-10 21:10] VITALS: BP 154/103; PULSE 75; TEMP 36.9; O2SAT 99
[2024-10-10] MEDS: CEPHALEXIN 500 MG CAPSULE PO (21:13)
--- NOTE | 2024-10-10 21:17 | PC.NURSE ---
i gave this patient verbal and written discharge orders along with 3 e-scripts and 1 work note and this patient voices yes to understanding these. at time of discharge this patient voices no concerns and shows no signs of distress
== END 2024-10-10 21:18 | disposition home or self-care (01) ==
PROVIDERS: Physician Assistant; Emergency Provider Emergency Medicine; PCP Family Medicine
DX: R10.9 Unspecified abdominal pain (principal); N39.0 Urinary tract infection, site not specified; J02.9 Acute pharyngitis, unspecified; R19.7 Diarrhea, unspecified
CPT/HCPCS: 81001; 87070; 87880; 99285; J1100; Q0162

== ENCOUNTER 2025-04-09 21:03 | Emergency (ER) | payer OTHER, SELFPAY ==
[2025-04-09 21:10] VITALS: BP 186/124; PULSE 124; TEMP 36.7; O2SAT 98; BMI 51.5
--- OUTSIDE RECORDS SUMMARY | 2025-04-09 21:15 | XMS_ITS | CCD ---
Author Organization [facility] Informat ion Partnership [facility] Care Team Providers Care Scientist Immunology Name Role Phone LOS, DR CHAD Roberts Primary Care Unavailable YANELIS, DR HOLLINS Attending Unavailable YANELIS, DR HOLLINS Consulting Unavailable YANELIS, DR HOLLINS Admitting Unavailable LOS, DR CHAD Roberts Primary Care Unavailable LOS, DR CHAD Roberts Admitting Unavailable LOS, DR CHAD Roberts Attending Unavailable LOS, DR CHAD Roberts Consulting Unavailable NONE, XXXX Primary Care Physician Unavailab Paolo Wilks Primary Care Physician [phone] Unavailable Primary Care Provider UnavailPaolo Villavicencio MD Primary Care Provider SANGEETA BURRELL Attending Unavailable HUY ESCOTO Attending Unavailable PAOLO ORTIZ Primary Care Unavailable SANGEETA BURRELL Referring Unavailable PAOLO ORTIZ Primary Care Unavailable SHERYL WU Attending Unavailable PAOLO ORTIZ Primary Care Unavailable RICK CARPIO Attending Unavailable Sil Fairchild PA-C Attending Provider Sil Fairchild Attending Unavailable Sil Fairchild Admitting Unavailable YESSENIA TURNER Attending Unavailable Paolo Ortiz Attending Unavailable YESSENIA TURNER Admitting Unavailable YESSENIA TURNER Attending Unavailable Paolo Ortiz Attending Unavailable Paolo Ortiz Attending Unavailable Paolo Ortiz Attending Unavailable Allergies Allergy Classification Reported Allergen(s) Allergy Type Date of Onset Reaction(s) Facility (1 source) Sulfonamides (Antibiotic) Drug allergy (disorder) 07-12-2013 [facility] Repository (6 sources) Sulfacetamide; Translations: [sodium sulfacetamide ophthalmic] Drug Allergy Rash [facility] (1 source) Sulfonamides (Antibiotic) Drug allergy (disorder) 12-10-2020 [facility] Repository Medications Current Medications Medication Drug Class(es) Dates Sig (Normalized) Sig (Original) Albuterol (Eqv-ProAir HFA) 90 mcg/inh inhalation aerosol (4 sources) Start: 08-18-2023 Albuterol (Eqv-ProAir HFA) 90 mcg/inh inhalation aerosol See Instructions, 8.5 EA, Refill(s) 0, INHALE 2 PUFFS BY MOUTH EVERY 6 HOURS, [id number], 168, cm, 07/27/23 7:24:00 EST, Height/Length Dosing, 139.9, kg, 07/27/23 7:24:00 EST, Weight Dosing Start Date: 08/18/23 Status: Ordered 24 hr buPROPion hydrochloride 300 mg extended release oral tablet (4 sources) Aminoketone Start: 09-11-2023 take 1 tablet by mouth every twenty-four hours buPROPion 300 mg/24 hours ER Tab 300 mg = 1 tab(s), Oral, q24hr, # 90 tab(s), Refills(s) 1, Pharmacy: [facility]/pharmacy #[id number], 168, cm, 09/11/23 8:16:00 EDT, Height/Length [...] Test Name Value Interpretation Reference Range Facil william Family Medicine Office/Clini c Noteon 04-03-2025 Family Medicine Office/Clinic Note Family Medicine Office/Clinic Note Chief Complaint Discuss Weight The patient presents with concerns regarding weight management and establishing care with a new provider. HPI Staff Former Dr Ortiz pt. Presenting today to discuss weight loss. Did have consult with weight loss center 08/05/24 to discuss surgical options. Gastric Bypass was recommended at that time. Pt states she does not want to take the surgical approach. Has tried adipex in the past, did not help with weight loss. Follow up for Mental Status: Medication adherence- Yes, takes medication as prescribed Medication refill needed: _ Suicidal thoughts-Not at this time Most recent LORI: 14 Most recent PHQ: 5 Is requesting refill of albuterol & lexapro History of Present Illness 25-year-old female presenting with weight management concerns and to establish care with a new provider. She has a history of excessive dietary caloric intake, particularly snacking when bored, which she identifies as a contributing factor to her weight gain. The patient has previously attempted weight loss using Adipex, which was unsuccessful despite regular exercise and meal portioning. The patient reports a weight loss of 7 pounds since her last visit in June, indicating some success in her efforts. Her goal is to reach a weight of 200 pounds, a weight she last maintained six years ago before her . Post-, her weight increased to 243 pounds, and she has struggled to lose weight since then. Her weight today in the office is 323.859 pounds. The patient has a family history of diabetes mellitus, with her mother and both grandmothers affected by the condition. She has not been diagnosed with diabetes but acknowledges the potential risk due to her family history. Her blood pressure was noted to be elevated at 132/84 mmHg, which she attributes to her weight. The patient was previously referred to a bariatric program but decided against surgery after further research and personal considerations. She expresses concerns about the long-term commitment and potential complications associated with bariatric surgery. The patient is currently not on any weight loss medications due to insurance limitations and previous lack of success with Adipex. Review of Systems PHQ Score Initial Depression Screen Score: 2 SCORE - General: Reports weight gain post-, denies recent illness. - Cardiovascular: Reports elevated blood pressure, denies chest pain or palpitations. - Endocrine: Denies diabetes mellitus, acknowledges family history of diabetes. Physical Exam Vitals & Measurements T: 36.8 ???C(Oral) HR: 84(Peripheral) RR: 18 BP: 132/84 SpO2: 98% HT: 168 cm HT: 66 in WT: 323.859 lb WT: 146.9 kg BMI: 52.05 General: alert, no acute distress Skin: warm, dry Head: no trauma, normocephalic Neck: Trachea midline, no adenopathy, no tenderness Eye: normal conjunctiva, sclera clear ENMT: TM's clear, oral mucosa moist, no pharyngeal erythema or exudate Cardiovascular: regular rate and rhythm, normal peripheral perfusion Respiratory: Lungs CTA, respirations non labored Extremities: no deformity, no trauma Neurological: oriented x 4, LOC appropriate for age, CN II-XII intact, motor strength equal & normal bilaterally, sensation equal & normal bilaterally, speech normal Psychiatric: cooperative, affect appropriate for age, normal judgement, normal psychiatric thoughts. Assessment/Plan 1. Encounter for weight management, (Z76.89: Persons encountering health services in other specified circumstances)Encounte r to establish care with new provider - Plan to conduct laboratory tests to assess for diabetes mellitus and other metabolic conditions. - Discussed potential use of compound pharmacy for weight loss medications if insurance does not cover. - Encouraged continuation of healthy lifestyle changes including diet and exercise. - f/u in 2 weeks Ordered: CBC w/ Auto Diff Comprehensive Metabolic Panel HgbA1c Lipid Panel TSH With T4fr Reflex 2. Excessive dietary caloric intake (R63.2: Polyphagia) - Encouraged portion control - Advised to continue meal portioning and healthy snacking habits. - Recommended monitoring caloric intake and reducing snacking when bored. Ordered: CBC w/ Auto Diff Comprehensive Metabolic Panel HgbA1c Lipid Panel TSH With T4fr Reflex Orders: albuterol, See Instructions, 8.5 EA, Refill(s) 0, INHALE 2 PUFFS BY MOUTH EVERY 6 HOURS, [id number], 168, cm, 04/03/25 14:22:00 EDT, Height/Length Dosing, 146.9, kg, 04/03/25 14:22:00 EDT, Weight Dosing escitalopram, 20 mg = 1 tab(s), Oral, Daily, # 90 tab(s), Refills(s) 0, Pharmacy: [facility]/pharmacy #[id number], 168, cm, 04/03/25 14:22:00 EDT, Height/Length Dosing, 146.9, kg, 04/03/25 14:22:00 EDT, Weight Dosing Total time spent preparing the chart, conducting of the encounter with the patient and family and time spent documenting, reviewing, and ordering tests was 30 minutes. Follow-up (more content not included)... Normal [facility] Comment on above: Result Comment: Elec tronically Signed By: YESSENIA TURNER CNP\.br\Date and Time Signed: 04/03/25 15:00 EDT Urine Cultureon 09-12-2024 Bacteria identified Cx Nom (U) >100,000 colonies/ml mixed bacterial skin contaminants 2 Days PERFORMED BY: [place] [address] PATHOLOGIST AUDIO VISUAL SPECIALIST ANGELIC HANKINS M.D. Normal [facility] Comment on above: Performed By: #### C UU #### [address] Ambulatory Visit Summaryon 1 08-04-2023 Ambulatory [...] Follow-Up Appointments Monday 5:15 PM EST With: Derik PRADHAN, Paolo Beltran Where: [place] [id number]- Medications What How Much When Instructions Unchanged [...] for choosing us for your care. Normal [facility] Family Medicine Office/Clini c Noteon 06-03-2024 [...] do. Patient understands. Gave the number to adolescent psychiatrist that may be able to help with [...] malignant neoplasm of female breast: Grandparent. Normal [facility] Comment on above: Result Comment: Elec [...] documented 300 (more content not included)... Normal [facility] Comment on above: Result Comment: Elec tronically Signed By: Derik PRADHAN, Paolo Macario.br\Date and Time Signed: 05/06/24 16:59 EST Guillermina 12-11-2023 [facility] Telephone (WIQ) DIONTE ESCAMILLA ([id number]) 2000 F Date Time Provider Department 12/11/23 MADDIE DSOUZA WIQ During your visit today, we recorded the following information about you[facility]23 8:08 AM Signed Smoking Cessation Navigation Outcome of contact: Left Message Comments: A voicemail has been left for this patient regarding Tobacco Cessation support options. If this patient has any further questions they can email us at or call us at [phone]. [employer] Senior Network Security Engineer/Smoking Cessation Navigator: [facility] Allergies As of Date: 12/11/2023 (Not on File) Date Reviewed: 12/07/2023 Reviewed by: Huy Escoto PSYD - Fully Assessed Reason for Visit: Smoking Cessation [1387] Problem List As Of Date: 12/11/2023 (None) Encounter Status:Closed by JEVONCOLE RODMADDIE on 12/11/23 Normal [facility] PAP ACOG PANEL 2: 21 to 29on 08-25-2021 . . Normal [facility] Comment on above: Performed By: #### 4 [id number] #### [facility] [address] [place] [address] Dr. Mariah Garcia Age Gdln ACOG Testing 20- [facility] Comment on above: Performed By: #### 4 [id number] #### [facility] [address] [place] [address] Dr. Mariah Garcia DIAGNOSIS: Comment [facility] Comment on above: Result Comment: NEGA TIVE FOR INTRAEPITHELIAL LESION OR MALIGNANCY. Performed By: #### 4 [id number] #### [facility] [address] [place] [address] [address] Mariah Garcia Methodology: Comment [facility] Comment on above: Result Comment: This liquid based ThinPrep(R) pap test was screened with the use of an image guided system. Performed By: #### 4 [id number] #### [facility] [address] [place] [address] Dr. Mariah Garcia Note: Comment [facility] Comment on above: Result Comment: The Pap smear is a screening test designed to aid in the detection of premalignant and malignant conditions of the uterine cervix. It is not a diagnostic procedure and should not be used as the sole means of detecting cervical cancer. Both false-positive and false-negative reports do occur. . Performed By: #### 4 [id number] #### [facility] [address] [place] [address] Dr. Mariah Garcia Performed by: Comment Normal [facility] Comment on above: Result Comment: Jesse Burrell, Heel Lining Paster (ASCP) Performed By: #### 4 [id number] #### [facility] [address] [place] [address] Dr. Mariah Garcia Reflex Criteria: Comment Normal [facility] Comment on above: Result Comment: The HPV DNA reflex criteria were not met with this specimen result therefore, no HPV testing was performed. . Performed By: #### 4 [id number] #### [facility] [address] [place] [address] Dr. Mariah Garcia Specimen adequacy: Comment Normal [facility] Comment on above: Result Comment: Sati sfactory for evaluation. Endocervical and/or squamous metaplastic cells (endocervical component) are present. Performed By: #### 4 [id number] #### [facility] [address] [place] [address] Dr. Mariah Garcia CHLAMYDIA/GONOCOCCUS BIRGIT (SW AB/URINE/PAPon 08-23-2021 Chlamydia trachomatis, BIRGIT Negative Normal Negative [facility] Comment on above: Performed By: #### C T/NGNA #### [facility] [address] [place] [address] Dr. Mariah Garcia Neisseria gonorrhoeae, BIRGIT Negative Normal Negative [facility] Comment on above: Performed By: #### C T/NGNA #### [facility] [address] [place] [address] Dr. Mariah Garcia VAGINITIS/VAGINOSIS DNA PROB Bin 08-22-2021 Emily species Negative Normal Negative [facility] Comment on above: Performed By: #### V AGINT #### [facility] [address] [place] [address] Dr. Mariah Garcia Gardnerella vaginalis Negative Normal Negative [facility] Comment on above: Performed By: #### V AGINT #### [facility] [address] [place] [address] [address] [address] Mariah Garcia Trichomonas vaginalis Negative Normal Negative [facility] Comment on above: Performed By: #### V AGINT #### [facility] [address] [place], [place] [id number] Dr. Mariah Garcia [facility]on SARS-CoV-2 (COVID-19) RNA BIRGIT+probe Ql (Unsp spec) Not detected Normal NOT DETECTED [facility] Comment on above: Result Comment: This test is not yet approved or cleared by the [place] FDA. When there are no FDA-approved or cleared tests available, and other criteria are met, FDA can make tests available under an emergency access mechanism called an Emergency Use Authorization (EUA). The EUA for this test is supported by the [place] of Health and Human Service's (HHS's) declaration [...] SARS-CoV-2. Performed By: #### C VDTBH #### [facility] [address] [place], [place] [id number] Dr. Mariah Garcia Vital Signs Date Time Vital Sign Value Performing Clinician Facility 10-30-2023 10:43040 Body height 167.6 cm Sangeeta Burrell MD Work Phone: [facility] 10-30-2023 10:43-0400 Body mass index (BMI) [Ratio] 51.17 kg/m2 Sangeeta Burrell MD Work Phone: [facility] 10-30-2023 10:43-0400 Body weight 143.79 kg Sangeeta Burrell MD Work Phone: [facility] 12-26-2022 22:50-0400 Body temperature 98.06 [degF] Dinesh Whatley [facility] 12-26-2022 22:50-0400 Diastolic blood pressure 99 mm[Hg] Ashlyn Dokken [facility] 12-26-2022 22:50-0400 Heart rate 94 /min Dinesh Barajaskkamor [facility] 12-26-2022 22:50-0400 Respiratory rate 16 /min Dinesh Whatley [facility] 12-26-2022 22:50-0400 SaO2% (BldA) [Mass fraction] 99 % Adriennejoyce Barajaskkamor [facility] 12-26-2022 22:50-0400 Systolic blood pressure 147 mm[Hg] rachel Whatley [facility] Encounters Encounter Date Encounter Type Care Provider Facility Start: 04-03-2025 End: 04-03-2025 ambulatory YESSENIA TURNER Facility:[facility] Start: 09-12-2024 End: 09-12-2024 ambulatory Sil Fairchild [facility] Work Phone: Start: 09-12-2024 End: 09-12-2024 Departed Referred Sil Fairchild PA-C Work Phone: [facility] Start: 08-05-2024 End: 08-05-2024 ambulatory Paolo Ortiz Facility:[facility] Start: 06-03-2024 End: 06-03-2024 ambulatory Paolo Ortiz Facility:[facility] Start: 05-06-2024 End: 05-06-2024 ambulatory Paolo Ortiz Facility:[facility] Start: 04-29-2024 End: 04-29-2024 ambulatory Paolo Ortiz Facility:[facility] Luz santos Start: 12-11-2023 [facility] on above: Smoking Cessation Start: 12-07-2023 End: 12-07-2023 Patient encounter procedure CRISTINO DIAZ [facility] Start: 12-06-2023 End: 12-06-2023 ambulatory HUY ESCOTO Facility:[facility] Start: 11-15-2023 End: 11-16-2023 ambulatory SANGEETA BURRELL Facility:[facility] Start: 11-15-2023 Encounter for other preprocedural examination SANGEETA BURRELL [facility] Start: 11-13-2023 End: 11-13-2023 ambulatory SHERYLQUETA WU Facility:[facility] Start: 11-06-2023 End: 11-06-2023 Patient encounter procedure CRISTINO DIAZ [facility] Start: 11-01-2023 End: 11-01-2023 Admission to same day surgery center Rick Carpio MD Work Phone: General Surgery Comment on above: Class 3 severe obesi ty without serious comorbidity with body mass index (BMI) of 50.0 to 59.9 in adult, unspecified obesity type (HCC) (Primary Dx) Start: 11-01-2023 End: 11-01-2023 ambulatory RICK CARPIO Facility:[facility] Start: 11-01-2023 End: 11-01-2023 Telemedicine consultation with patient Rick Carpio MD Work Phone: General Surgery Start: 10-30-2023 End: 10-30-2023 ambulatory SANGEETA BURRELL Facility:[facility] Start: 10-30-2023 End: 10-30-2023 Patient encounter procedure Sangeeta Burrell MD Work Phone: Endocrinology BMI Comment on above: Preop testing (Prima ry Dx); Morbid obesity with BMI of 50.0-59.9, adult (HCC); Snoring; Fatigue, unspecified type Start: 10-30-2023 End: 10-30-2023 Patient encounter status Sangeeta Burrell MD Work Phone: [facility] Work Phone: Start: 10-30-2023 End: 10-30-2023 Telemedicine consultation with patient Sangeeta Burrell MD Work Phone: Endocrinology BMI Start: 10-27-2023 End: 10-27-2023 Patient encounter procedure CRISTINO DIAZ [facility] [employer] Start: 10-12-2023 End: 10-12-2023 Patient encounter procedure CRISTINO DIAZ [facility] [employer] [facility] Start: 12-26-2022 End: 12-27-2022 Emergency department patient visit Dinesh Whatley [facility] Start: 08-20-2021 End: 08-20-[address] CHAD MADISON Facility:[facility] Start: 04-06-2021 End: 04-06-[address] CHAD MADISON Facility:[facility] Procedures Date Procedure Procedure Detail Performing Clinician None (qualifier value) Yamilka [facility] Surgery (qualifier value) ROXANA DIAZ Comment on above: left foot Plan of Treatment Date Care Activity Detail Author Start: 09-12-2024 Urine culture [facility] Start: 09-12-2024 Bacteria identified in Urine by Culture Urine Culture [facility] Start: 03-03-2024 Influenza vaccination Influenz a Vaccine (Season Ended) [facility] Start: 01-22-2024 End: 01-22-2024 Admission to same day surgery center 01/22/2024 8:00 AM EDT [facility] [address] [place] [address] [place] [address] [facility]Gutnick/6mon/Buc[facility] e General Surgery Comment on above: Red/Gutnick/6mon/Buc keye Start: 01-17-2024 End: 01-17-2024 ambulatory 01/17/2024 3:00 PM EDT [facility] Neurology [address] [place] [address] Britt Villalobos MD [address] [place] [address] Preop testing [Z01.818] Neurology Comment on above: Preop testing [Z01.8 18] Start: 12-29-2023 End: 12-29-2023 Patient encounter procedure Radiology Comment on above: Preop testing [Z01.8 18] no spl, chkd jmg Pre op testing [Z01.818] Start: 12-26-2023 End: 12-26-2023 Nursing evaluation of patient and report 12/26/2023 10:00 AM EDT Nurse Visit Cardiology [address] [place] [address] Ana, Nurse Card [facility] [address] [place] [address] Preop testing [Z01.818] Cardiology Comment on above: Preop testing [Z01.8 18] Start: 12-13-2023 End: 12-13-2023 Admission to same day surgery center 12/13/2023 9:30 AM EDT [facility] General Surgery [address] [place] [address] Eloisa Fam, [facility] [address] [place] [address] [facility]nick/6mon/[facility]uc[facility] General Surgery Comment on above: Red/Gutnick/6mon/Buc keye Start: 11-30-2023 End: 11-30-2023 Patient encounter procedure 11/30/2023 12:30 PM EDT [facility] Endocrinology BMI [address] [place] [address] Domenica Dent, RD [address] [place] [address] Red/Gutnick/6mon/Buckey e Endocrinology BMI Comment on above: Red/Gutnick/6mon/Buc keye Start: 11-16-2023 End: 11-16-2023 Patient encounter procedure 11/16/2023 10:00 AM EDT Office Visit Neurology [address] [place] [address] Preop testing [Z01.818] Neurology Comment on above: Preop testing [Z01.8 18] Start: 11-03-2023 End: 11-03-2023 ambulatory 11/03/2023 11:30 AM EDT Results Only [facility] [address] [place] [address] [place] [address] [facility] Start: 11-01-2023 End: 11-01-2023 Admission to same day surgery center 11/01/2023 12:40 PM EDT [facility] General Surgery [address] [place] [address] [place] [address] [place], [place] [id number] Red/Gutnick/6mon/Buckey e General Surgery Comment on above: Red/Gutnick/6mon/Buc keye Start: 10-30-2023 End: 10-29-2024 25-hydroxyvitamin D3 [Mass/volume] in Serum or Plasma VITAMIN D 25 HYDROXY Lab Routine Preop testing Snoring Fatigue, unspecified type Morbid obesity with BMI of 50.0-59.9, adult ([facility]) Expected: 10/30/2023, Expires: 10/29/2024 [facility] Comment on above: Expected: 10/30/2023 , Expires: 10/29/2024 Start: 10-30-2023 End: 10-29-2024 CBC panel - Blood by Automated count COMPLETE BLOOD COUNT Lab Routine Preop testing Snoring Fatigue, unspecified type Morbid obesity with BMI of 50.0-59.9, adult ([facility]) Expected: 10/30/2023, Expires: 10/29/2024 [facility] Comment on above: Expected: 10/30/2023 , Expires: 10/29/2024 Start: 10-30-2023 End: 10-29-2024 Cobalamin (Vitamin B12) [Mass/volume] in Serum or Plasma VITAMIN B12 Lab Routine Preop testing Snoring Fatigue, unspecified type Morbid obesity with BMI of 50.0-59.9, adult (HCC) Expected: 10/30/2023, Expires: 10/29/2024 [facility] Comment on above: Expected: 10/30/2023 , Expires: 10/29/2024 Start: 10-30-2023 End: 10-29-2024 Comprehensive metabolic 2000 panel - Serum or Plasma COMPREHENSIVE METABOLIC PANEL Lab Routine Preop testing Snoring Fatigue, unspecified type Morbid obesity with BMI of 50.0-59.9, adult (HCC) Expected: 10/30/2023, Expires: 10/29/2024 [facility] Comment on above: Expected: 10/30/2023 , Expires: 10/29/2024 Start: 10-30-2023 End: 10-29-2024 Folate [Mass/volume] in Serum or Plasma FOLATE, SERUM Lab Routine Preop testing Snoring Fatigue, unspecified type Morbid obesity with BMI of 50.0-59.9, adult (HCC) Expected: 10/30/2023, Expires: 10/29/2024 [facility] Comment on above: Expected: 10/30/2023 , Expires: 10/29/2024 Start: 10-30-2023 End: 10-29-2024 Hemoglobin A1c in Blood HEMOGLOBIN A1C Lab Routine Preop testing Snoring Fatigue, unspecified type Morbid obesity with BMI of 50.0-59.9, adult (HCC) Expected: 10/30/2023, Expires: 10/29/2024 [facility] Comment on above: Expected: 10/30/2023 , Expires: 10/29/2024 Start: 10-30-2023 End: 10-29-2024 Iron and Iron binding capacity panel - Serum or Plasma IRON AND TIBC Lab Routine Preop testing Snoring Fatigue, unspecified type Morbid obesity with BMI of 50.0-59.9, adult (HCC) Expected: 10/30/2023, Expires: 10/29/2024 [facility] Comment on above: Expected: 10/30/2023 , Expires: 10/29/2024 Start: 10-30-2023 End: 10-29-2024 Lipid 1996 panel - Serum or Plasma LIPID PANEL BASIC Lab Routine Preop testing Snoring Fatigue, unspecified type Morbid obesity with BMI of 50.0-59.9, adult (HCC) Expected: 10/30/2023, Expires: 10/29/2024 [facility] Comment on above: Expected: 10/30/2023 , Expires: 10/29/2024 Start: 10-30-2023 End: 10-29-2024 Parathyrin.intact [Mass/volume] in Serum or Plasma PTH INTACT Lab Routine Preop testing Snoring Fatigue, unspecified type Morbid obesity with BMI of 50.0-59.9, adult (HCC) Expected: 10/30/2023, Expires: 10/29/2024 [facility] Comment on above: Expected: 10/30/2023 , Expires: 10/29/2024 Start: 10-30-2023 End: 10-29-2024 Thyrotropin [Units/volume] in Serum or Plasma THYROID STIMULATING HORMONE Lab Routine Preop testing Snoring Fatigue, unspecified type Morbid obesity with BMI of 50.0-59.9, adult (HCC) Expected: 10/30/2023, Expires: 10/29/2024 [facility] Comment on above: Expected: 10/30/2023 , Expires: 10/29/2024 Start: 10-30-2023 End: 01-29-2024 VITAMIN B1 (THIAMINE), WHOLE BLOOD VITAMIN B1 (THIAMINE), WHOLE BLOOD Lab Routine Preop testing Snoring Fatigue, unspecified type Morbid obesity with BMI of 50.0-59.9, adult (HCC) Expected: 10/30/2023, Expires: 01/29/2024 [facility] Comment on above: Expected: 10/30/2023 , Expires: 01/29/2024 Start: 07-03-2023 Behavioral Health Screening Behavioral Health Screening [facility] Start: 03-03-2023 Covid-19 Vaccine (2022-) Covid-19 Vaccine (2022- season) [facility] Start: 04-14-2021 Urine microalbumin profile DTaP,Tdap,Td Vaccine (7 - Td or Tdap) [facility] Start: 02-19-2020 Screening for malign ant neoplasm of cervix [facility] Start: 2017 Hepatitis C screening Hepatitis C Sc heriberto [facility] Start: 2017 HIV screening HIV Screening [facility] Start: 2013 Peds To Adult Transition Annual Assessment Peds To Adult Transition Annual Assessment [facility] Start: 2011 Peds To Adult Transition Initial Discussion Peds To Adult Transition Initial Discussion [facility] End: 10-29-2024 ECG COMPLETE ECG COMPLETE ECG Routine Preop testing Snoring Fatigue, unspecified type Morbid obesity with BMI of 50.0-59.9, adult (HCC) 1 Occurrences starting 10/30/2023 until 10/29/2024 [facility] Comment on above: 1 Occurrences starti ng 10/30/2023 until 10/29/2024 End: 10-29-2024 HOME SLEEP APNEA TEST (HSAT) HOME SLEEP APNEA TEST (HSAT) Procedures Routine Preop testing Snoring Fatigue, unspecified type Morbid obesity with BMI of 50.0-59.9, adult (HCC) 1 Occurrences starting 10/30/2023 until 10/29/2024 [facility] Work Phone: Comment on above: 1 Occurrences starti ng 10/30/2023 until 10/29/2024 End: 11-28-2024 US Abdomen RUQ US ABD RIGHT UPPER QUADRANT Radiology Routine Preop testing Snoring Fatigue, unspecified type Morbid obesity with BMI of 50.0-59.9, adult (HCC) 1 Occurrences starting 10/30/2023 until 11/28/2024 [facility] Comment on above: 1 Occurrences starti ng 10/30/2023 until 11/28/2024 End: 11-28-2024 XR Chest PA and Lateral XR CHEST 2V FRONTAL/LAT Radiology Routine Preop testing Snoring Fatigue, unspecified type Morbid obesity with BMI of 50.0-59.9, adult (HCC) 1 Occurrences starting 10/30/2023 until 11/28/2024 [facility] Comment on above: 1 Occurrences starti ng 10/30/2023 until 11/28/2024 Immunizations Immunization Date Immunization Notes Care Provider Paulino garcía 06-02-2015 influenza virus vacc ine, unspecified formulation Sangeeta Burrell MD Work Phone: [facility] Payers Date Payer Category Payer Self-pay 2018 Medicaid [id number] 1999 Unknown [id number] 2.16.84 [id number] 1999 Unknown [id number] 2.16.84 [id number] 1999 Unknown [id number] 2.16.8 [id number] 1999 Unknown [id number] 2.16.8 [id number] 1999 Unknown [id number] 2.16.8 [id number] 1999 Unknown [id number] 2.16.8 [id number] 1999 Unknown [id number] 2.16.8 [id number] 1999 Unknown [id number] 2.16.8 [id number] 1959 Unknown [id number] Social History Date Type Detail Facility Tobacco smoking status [facility] Start: 10-24-2023 End: 12-05-2023 Sex Assigned At Female [facility] Start: 09-11-2023 Tobacco smoking status Ex-smoker (fi nding) [facility] Tobacco smoking status [facility] Start: 10-24-2023 End: 12-05-2023 History of Social function [facility] Start: 1999 Sex Assigned At Female [facility] Start: 10-23-2023 Gender identity Identifies as female gender (finding) [facility] Start: 10-23-2023 Sexual orientation Bisexual (finding ) [facility] Start: 12-10-2020 Tobacco smoking stat us NHIS Smoker (finding) [facility] Start: 09-14-2024 Sex Female (finding) [facility] Functional Status Date Assessment Result Facility 12-26-2022 Functional Status N/A [facility] Clinical Notes 12-27-2022 to 04-03-2025 Telephone Encounter - Maddie Dsouza, [facility] ED - 12/11/2023 8:08 AM EDTTelephone Encounter - Maddie Dsouza, [facility] ED - 12/11/2023 8:08 AM EDTPatient Instructions Note Date & Type Note Facility 04-03-2025 Note Patient Education Mental and Behavioral Health Eating Disorders An eating disorder is a medical and mental health condition. Over time, eating disorders damage the body and have an impact on mood and mental health. Eating disorders can be life-threatening. The most common eating disorders are: ??? Bulimia nervosa. This type involves eating large amounts of food in a short period of time (binge). This is often followed by getting rid of the calories that were eaten (purging) by vomiting, exercising too much, or taking laxative medicines. Bulimia may start as a way to control weight. Later, it may be triggered by stress or an emotional crisis. ??? Anorexia nervosa. This type involves having extremely low body weight from severe dieting, too much exercising, or both. Losing weight or preventing weight gain becomes an obsession. Anorexia is often used as a way to cope with emotional problems. ??? Binge eating disorder (BED). This type involves eating a large amount of food in 2 hours or less and feeling out of control overeating. People who have BED eat too quickly, feel very full, eat when they are not hungry, and usually eat alone. Typically, a binge happens three or more times a week. ??? Other specified feeding or eating disorder. This is when a person has some symptoms of BED, bulimia nervosa, or anorexia nervosa, but not enough symptoms to diagnose a specific disorder. Problems caused by eating disorders Eating disorders can lead to serious medical problems. These may include: ??? Not having enough food or nutrients (malnutrition). ??? Hormone imbalance. ??? Not having enough vitamins and minerals in the body. ??? Damage to organs. ??? Being very underweight or overweight. ??? Damage to the teeth, jaw, and esophagus. What causes eating disorders? The cause of an eating disorder is not known. However, an eating disorder may be influenced by: ??? Having a family history of eating disorders. ??? Experiencing trauma. ??? Frequently dieting. ??? Having a lot of stress. ??? Having other mental health issues. ??? Focusing on messages from society about beauty and body image. What are the symptoms of an eating disorder? Symptoms of an eating disorder include being obsessed with food, eating, body weight, and appearance. People with eating disorders may also have other medical problems due to eating behavior or the behaviors used to lose weight. Symptoms of anorexia include: ??? Severely restricting food intake. ??? Purging calories through exercise, vomiting, or the use of medicines. ??? Having a distorted view of one's weight or size. Symptoms of bulimia include: ??? Binge eating. People who binge eat consume an extreme amount of food in 2 hours or less. Following a binge, bulimia involves getting rid of the food by vomiting, exercising, or using medicines. ??? Feeling a lot of shame about eating and purging behavior. ??? Being very concerned with weight. Symptoms of BED include: ??? Binge eating, which involves eating large amounts of food in 2 hours or less. ??? Frequently eating more than intended and feeling out of control. ??? Feeling disgusted and embarrassed about one's eating habits. How are eating disorders treated? Treatment for an eating disorder may include: ??? Therapy or counseling sessions with specialists in eating disorders. ??? Seeing a diet and nutrition expert (dietitian). ??? Getting the right amount of exercise. ??? Taking medicines for anxiety or depression. ??? Staying in the hospital or going to an eating disorders program. Follow these instructions at home: Lifestyle ??? Learn about eating disorders. ??? Know what situations trigger your symptoms. Make a plan to help you deal with these situations. ??? Resist weighing yourself or checking yourself in the mirror often. ??? Find programs or resources for people with eating disorders. ??? Talk with an credit collections specialist, therapist, or counselor about your eating behavior. General instructions ??? Follow instructions from your health care provider about eating and exercising. ??? Return to your normal activities as told by your health care provider. Ask your health care provider what activities are safe for you. ??? Get regular dental care every 6 months. ??? Keep all follow-up visits. This is important. ??? Take herbal remedies or btik-xrt-hbazaij and prescription medicines only as told by your health care provider. Where to find support ??? National Eating Disorders: www.nationaleatingdisorders.org ??? National Eating Disorders Helpline: ??? National [place] of Mental Health: www.[facility].nih.gov/eating-disorde rs Summary ??? Eating disorders are medical and mental health conditions. ??? Eating disorders can be life-threatening. ??? Treatment may include therapy or medicines. ??? Talk with an credit collections specialist, therapist, or counselor about yo (more content not included)... [facility] 06-03-2024 Note Patient Education Nutrition BMI for [...] for Disease Control and Prevention: cdc.gov ??? [place] Heart Association: heart.org ??? National Heart, Lung, and Blood [place]: nhlbi.nih.gov This information is not intended to replace advice given to you by your health care provider. Make sure you discuss any questions you have with your health care provider. Document Revised: 03/09/2023 Document Reviewed: 03/02/2023 Smart Plate Patient Education ? 2023 [employer]. [facility] 05-06-2024 Note Patient Education Nutrition BMI [...] for Disease Control and Prevention: cdc.gov ??? [place] Heart Association: heart.org ??? National Heart, Lung, and Blood [place]: nhlbi.nih.gov This information is not intended to replace advice given to you by your health care provider. Make sure you discuss any questions you have with your health care provider. Document Revised: 03/09/2023 Document Reviewed: 03/02/2023 ElseElectronic Payment and Services (EPS) Patient Education ? 2023 Smart Plate [employer] [facility] 12-11-2023 Telephone encounter Note Smoking Cessation Navigation Outcome of contact: Left Message Comments: A voicemail has been left for this patient regarding Tobacco Cessation support options. If this patient has any further questions they can email us at [email or web address] or call us at [phone]. [employer] Senior Network Security Engineer/Smoking Cessation Navigator: [facility] 12-11-2023 Miscellaneous Notes Smoking Cessation Navigation Outcome of contact: Left Message Comments: A voicemail has been left for this patient regarding Tobacco Cessation support options. If this patient has any further questions they can email us at [email or web address] or call us at [phone]. [employer] Senior Network Security Engineer/Smoking Cessation Navigator: [facility] documented in this encounter [facility] 12-06-2023 Note HNO ID: [id number] Author: HUY ESCOTO PSYD Service: ? Author Type: Psychologist Type: Progress Notes Filed: 12/07/2023 09:53 Note Text: [facility] BARIATRIC SURGERY BEHAVIORAL HEALTH EVALUATION DATE OF SERVICE: 12/06/2023 TIME OF SERVICE: 3:00PM to 4:20PM COST CENTER: 3[facility] CPT CODE: - 84858 Brief Emotional/Behavioral Assessment with scoring/documentation [id number] Virtual Psych Diagnostic Eval BILLING CODE: ENDO PSYL MAIN Tigist BMI Surgical Pathway Visit type: Psychology Visit SESSION #: 1 The patient signed the Informed Consent for Psychological Evaluation AND Care Form via dermSearch (see consent dated 12/05/23), and the [facility] health care insurance benefits, fees for service, emergency procedures, and the limits of confidentiality that may pertain with any given case were discussed with the patient. The patient was given a copy of the consent form via dermSearch. I have communicated my name and active licensure. The patient's identity and physical location were verified at the time of this visit. Either the patient or their legal client services representative has been informed of the [...] technology to benefit from virtual format. Platform: [employer]cent[employer] Address of Patient During Time of Virtual Visit: Pt home at [address] [place] [address] Emergency Contact: Cari Escamilla (Grandparent) at IDENTIFYING [...] with any previou (more content not included)... [facility] 11-13-2023 Note HNO ID: [id number] Author: SHERYL WU, PhD Service: ? Author Type: Psychologist Type: Progress Notes Filed: 11/13/2023 15:38 Note Text: [facility] Bariatric Behavioral Services Progress Note November 13, 2023 Patient did not check in for scheduled appointment. This visit will be marked as a no-show. Sheryl Wu, Ph.D. Clinical Psychologist [facility] 11-01-2023 History of Presen t illness Narrative RICK CARPIO MD, FACS, [facility] CELL: [phone] OFFICE: [phone] FAX: [phone] NEW PATIENT VIRTUAL CONSULT VISIT Consultation requested by Dr. Paolo Ortiz for an opinion regarding obesity therpay. My final recommendations will be communicated back to the requesting physician by way of shared Medical record or letter to requesting physician via US mail. This is a virtual visit using dermSearch video visit. It required patient-provider interaction for the medical decision making as documented below. I have communicated my name and active licensure. The patient's identity and physical location were verified at the time of this visit. Either the patient or their legal client services representative has been informed of the [...] Pathway Visit type: Bariatric Surgeon Visit RICK CARIPO MD documented in this encounter [facility] 11-01-2023 Note HNO ID: [id number] Author: RICK CARPIO MD Service: ? Author Type: Physician Type: Progress Notes Filed: 11/01/2023 12:54 Note Text: RICK CARPIO MD, [facility], [facility] CELL: [phone] OFFICE: [phone] FAX: [phone] NEW PATIENT VIRTUAL CONSULT VISIT Consultation requested by Dr. Paolo Ortiz for an opinion regarding obesity therpay. My final recommendations will be communicated back to the requesting physician by way of shared Medical record or letter to requesting physician via US mail. This is a virtual visit using dermSearch video visit. It required patient-provider interaction for the medical decision making as documented below. I have communicated my name and active licensure. The patient's identity and physical location were verified at the time of this visit. Either the patient or their legal client services representative has been informed of the [...] type: Bariatric Surgeon Visit RICK CARPIO MD [facility] 10-30-2023 Instructions Sangeeta Burrell MD - 10/30/2023 11:01 AM EDT INSTRUCTIONS: 1) Please contact me (Dr. Burrell) if you have not heard about your test results within a few days after you had them done. Thank you: Contact information: [facility] [place] M61/Attention: Dr. Burrell [address] [place] [address] 2) Please check with your insurance company regarding cost/coverage of any tests ordered prior to having them completed. Sher Escamilla , Thank you for completing your visit today and we welcome you to the surgical program. We are sure that you will still have some additional questions and encourage you to reach out to your care provider via [place] OR your Patient Navigator. The contact information [...] free to ask for a hard copy. [email or web address] Once you complete all of the requirements (testing, consultations, diet, etc) from each provider, please call [phone] and select option #5 to initiate insurance approval. Also, if you have any questions along the way, we encourage you to join our weekly Navigation webinar every Monday from 12:00 pm - 1:00 pm. This webinar will give you an opportunity to chat with your patient navigator and learn about your specific program requirements. The link for this webinar is below: [email or web address] Please note scheduling information It is important to keep track of your scheduled appointments to ensure successful completion of our surgical program. Any missed appointments can further delay your pre-surgical work-up. [facility] does offer an opt-in option for getting text message appointment reminders. Please follow the link below if you would like to opt into this service. [email or web address] As part of [...] You may call your local [facility] to get an appointment. - Lab work- No appointment is needed for this, you may complete at any [facility] Laboratory. These are usually fasting labs, please be sure to fast (only water permitted) for 10-12 hours prior to the test. -Sleep Study- Please call [phone] or [phone] to get this appointment set up. -Sleep Medicine Consult- (Only needed if sleep study confirms sleep apnea) Please call [phone] or [phone] to schedule an appointment. Any testing that is completed outside of [facility] will need faxed to [phone]. We look forward to working with you on this journey, Sangeeta Burrell MD documented in this encounter [facility] 10-30-2023 Note HNO ID: [id number] Author: SANGEETA BURRELL MD Service: ? Author Type: Physician Type: Progress Notes Filed: 10/30/2023 17:03 Note Text: I have communicated my name and active licensure. The patient's identity and physical location were verified at the time of this visit. 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 [facility] 10-30-2023 History of Presen t illness Narrative I have communicated my name and active licensure. The patient's identity and physical location were verified at the time of this visit. 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 -tobacco use: vape-has been talking her doctor; ALL: See [facility] LABS: IMAGING: PROC: CARDIAC: MEDS: See [...] cardiac, valvular or vascular issues *No h/o [place], CHF,[place];no cp/palpitations Respiratory: Denies any known h/o lung [...] other psychiatric problems Other providers: -PCP -Ob-gyne -assistive technology specialist occasionally (had her surgery on her [...] which included preparing to see the patient, wbtr-sn-nopb patient care, completing clinical documentation, obtaining and/or reviewing separately obtained history, counseling and educating the patient/family/caregiver, ordering medications, tests, or procedures, and care coordination (not separately reported). documented in this encounter [facility] 12-27-2022 Evaluation + Plan note Extrac [...] Date:03/02/2023 09:40:00 AM Scheduled Provider:Paolo Ortiz MD Location:[facility] Appointment Type: New Patient - Adult [facility]06-27-2023 Hospital Discharge instructions Patient Education 12/27/2022 [...] may be recommended to support your foot. Dagz-zej-ajqqlff anti-inflammatory medicines may also be recommended for [...] sitting or lying down. General instructions Take bume-xnx-nsheltp and prescription medicines only as told by [...] provider. Document Revised: 09/22/2021 Document Reviewed: 09/22/2021 Smart Plate Patient Education 2022 [employer]. Follow Up Care 12/26/2022 22:46:10 With:XXXX NONE [...] you develop any new or worsening symptoms. [facility]ments Appointment Date:10/23/2023 09:30:00 AM Scheduled Provider:Paolo Ortiz MD [facility] Appoint[facility] Type:FM Open [facility] Behavioral Health evaluation + Plan note Future Appointments Appointment Date:11/23/2023 01:00:00 PM Scheduled Provider:CRISTINO VARELA Location:[facility] Behavioral Health Peds Appointment Type: Video Visit Therapy [address] [facility] Behavioral Health evaluation note* Diagnosis Preop testing- Primary Preoperative examination, unspecified Morbid obesity with BMI of 50.0-59.9, adult (HCC) Morbid obesity Snoring Other dyspnea and respiratory abnormality Fatigue, unspecified type documented in this encounter [facility] note* Diagnosis Class 3 severe obesity without serious comorbidity with body mass index (BMI) of 50.0 to 59.9 in adult, unspecified obesity type (HCC)- Primary documented in this encounter [facility] noteNo assessment information [facility] Work Phone: Hospital course Narrative No data available for this section [facility] No data available for this section [facility] progress note No data available for this section [facility] Outpatient Procedure (Routine) - Pending Review Specialty Diagnoses / Procedures Referred By Contac t Referred To [facility] Diagnoses Preop testing Snoring Fatigue, unspecified type Morbid obesity with BMI of 50.0-59.9, adult (HCC) Procedures ECG COMPLETE ECG ROUTINE ECG W/LEAST 12 LDS W/I&R Sangeeta Burrell MD [address] [place] [address] [facility] [place] [facility] [place] [address] Referral ID Status Reason Start Date Expiration Date Visits Requested Visits Authorized [id number] Pending Review Auto-Generat ed Referral 10/30/2023 10/29/2024 1 1 * Diagnostic Procedure Only (Routine) - Pending Review Specialty Diagnoses / Procedures Referred By Terrance carter Referred To Contact US IMAGING Diagnoses Preop testing Snoring Fatigue, unspecified type Morbid obesity with BMI of 50.0-59.9, adult (HCC) Procedures US ABD RIGHT UPPER QUADRANT US ABDOMINAL REAL TIME W/IMAGE LIMITED Sangeeta Burrell MD [address] [place] [address] [facility] [place] [id number] Referral ID Status Reason Start Date Expiration Date Visits Requested Visits Authorized [id number] Pending Review Auto-Generat ed Referral 10/30/2023 11/28/2024 1 1 * Consult, Test, Treat (Routine) - Authorized Specialty Diagnoses / Procedures Referred By Terrance carter Referred To Contact Diagnoses Preop testing Snoring Fatigue, unspecified type Morbid obesity with BMI of 50.0-59.9, adult (HCC) Procedures CONSULT TO SLEEP MEDICINE - ADULT OFFICE/OUTPATIENT [facility] 60 MINUTES Sangeeta Burrell MD [address] [place] [address] Referral ID Status Reason Start Date Expiration Date Visits Requested Visits Authorized [id number] Authorized PCP Requested Referral 10/30/2023 10/29/2024 1 1 * Diagnostic Procedure Only (Routine) - Pending Review Specialty Diagnoses / Procedures Referred By Terrance carter Referred To Contact [facility] Diagnoses Preop testing Snoring Fatigue, unspecified type Morbid obesity with BMI of 50.0-59.9, adult (HCC) Procedures HOME SLEEP APNEA TEST (HSAT) SLEEP STD AIRFLOW HRT RATE&O2 SAT EFFORT UNATT Sangeeta Burrell MD [address] [place] [address] Neurological [place] [facility] [place] [address] Referral ID Status Reason Start Date Expiration Date Visits Requested Visits Authorized [id number] Pending Review Auto-Generat ed Referral 10/30/2023 10/29/2024 1 1 [facility] Summary Purpose Family History No Family [...] content) DATE CREATED AUTHOR 08/26/2021 [facility] DATE CREATED AUTHOR AUTHOR'S ORGANIZ ATION 12/11/2023 [facility] DATE CREATED AUTHOR AUTHOR'S ORGANIZ ATION 09/16/2024 [facility] DATE CREATED AUTHOR AUTHOR'S ORGANIZ ATION 04/07/2025 [facility] Patient Care team informatio n (unrecognized section and content) Team Status: Inactive Member Role Status Dates Sil Fairchild PA-C Attending Provider Active Start: September 12, 2024 End: September 12, 2024 Scientist Immunology Relationship Specialty Start Date End Date Paolo Ortiz MD [facility] [place] [address] PCP - General Family Medicine 11/01/23 Personnel Name: Paolo Ortiz MD Address: Address: [facility] [place] [address]- Source Comments (unrecognize d section and content) In the event this informatio n is protected by the Federal Confidentiality of Alcohol and Drug Abuse Patient Records regulations: The Federal rules restrict any use of the information to criminally investigate or prosecute any alcohol or drug abuse patient.[facility] the event this information is protected by the Federal Confidentiality of Alcohol and Drug Abuse Patient Records regulations: The Federal rules restrict any use of the information to criminally investigate or prosecute any alcohol or drug abuse patient.[facility] the event this information is protected by the Federal Confidentiality of Alcohol and Drug Abuse Patient Records regulations: The Federal rules restrict any use of the information to criminally investigate or prosecute any alcohol or drug abuse patient.[facility] Reason for Visit (unrecogniz ed section [...] BE BASED ON THE PRIMARY CLINICAL RECORDS. [employer] provides no warranty or guarantee of the accuracy or completeness of information in this document.
--- NOTE | 2025-04-09 21:17 | ED_ITS ---
HPI - URI/Sore Throat General Chief Complaint: Upper Respiratory Infection Stated Complaint: CONGESTION, VOICE, HEADACHE, SORE THROAT Time Seen by Provider: 04/09/25 21:11 Source: patient Limitations: no limitations History of Present Illness HPI Narrative: 25 year old female presents to the ED for cough, congestion, body aches, sore throat, hoarse voice. Onset was yesterday. Reports one episode of N/V this morning. She took Tylenol around 1245 today. Denies fever, SOB, diarrhea. Denies chance of . Related Data Home Medications ?Medication ?Instructions ?Recorded ?Confirmed bupropion HCl 150 mg 24 hr tablet, 150 mg PO DAILY 06/2512/26/23 extended release albuterol sulfate 90 mcg/actuation 2 puff inhalation Q 6H PRN 06/14/24 06/14/24 aerosol inhaler shortness of breath or wheez ing escitalopram oxalate 20 mg tablet 20 mg PO DAILY 06/1406/14/24 Previous Rx's ?Medication ?Instructions ?Recorded benzonatate 200 mg capsule 200 mg PO TID PRN cough #10 caps 06/05/24 methylprednisolone 4 mg tablets in 4 mg PO DAILY #21 e a 06/05/24 a dose pack ([employer] (Anish)) amoxicillin 500 mg capsule 500 mg PO TID 10 days #30 c aps 06/14/24 eihqdloaskxgnfk-spgjakzrrrajkca-XF 10 ml PO Q6H PRN co ld symptoms 06/14/24 2 mg-30 mg-10 mg/5 mL oral syrup #200 mL (Bromfed DM) dexamethasone 4 mg tablet 4 mg PO BID 5 days #10 tabs 06/14/24 ondansetron 4 mg disintegrating 4 mg PO Q6H PRN nausea and 06/14/24 tablet vomiting #12 tabs promethazine-DM 6.25 mg-15 mg/5 mL 5 ml PO Q6H PRN cou gh #118 mL 06/14/24 oral syrup ondansetron 4 mg disintegrating 4 mg PO Q6H PRN nausea and 09/12/24 tablet vomiting #12 tabs cephalexin 500 mg capsule 500 mg PO Q8H 7 days #21 cap s 10/10/24 hyoscyamine sulfate 0.125 mg 0.125 mg PO Q6H PRN abdom inal pain 10/10/24 tablet (Levsin) #12 tabs ondansetron 4 mg disintegrating 4 mg PO Q6H PRN nausea and 10/10/24 tablet vomiting #12 tabs ondansetron 4 mg disintegrating 4 mg PO Q8H PRN nausea and 04/09/25 tablet vomiting #6 tabs prednisone 20 mg tablet 40 mg (2 x 20 mg) PO DAILY 5 days 04/09/25 #10 tabs Allergies Allergy/AdvReac Type Severity Reaction Status Date / Time Sulfa (Sulfonamide Allergy Hives Verified 04/09/25 21:10 Antibiotics) Review of Systems ROS Constitutional Denies: fever or chills Ears, nose, mouth, and throat Reports: throat pain, nasal discharge and nasal congestion; Denies: ear pain or ear discharge Cardiovascular Denies: chest pain Respiratory Reports: cough; Denies: shortness of breath Gastrointestinal Reports: nausea and vomiting; Denies: abdominal pain or diarrhea Neurological Denies: headache PFSH PFSH Social History Little interest or pleasure in doing things: not at all Feeling down, depressed, or hopeless: not at all Exam Constitutional Vital Signs, click to edit/add: Last Vital Signs Temp 98.0 F 04/09/25 21:10 Pulse 90 04/09/25 22:04 Resp 16 04/09/25 22:04 BP 162/100 H 04/09/25 22:04 Pulse Ox 98 04/09/25 22:04 O2 Del Method Room Air 04/09/25 22:04 Common normals: no apparent distress and oriented x3 General appearance: cooperative HENNJ Common normals: external ears normal and moist oral mucous membranes Throat: uvula midline and posterior oropharynx abnormal erythema; no edema and no exudates Eye Common normals: conjunctivae normal and no scleral icterus Neck & C-Spine Common normals: supple Respiratory Common normals: normal respiratory effort and clear to auscultation bilaterally Effort & inspection: able to speak in complete sentences and symmetric chest movement Cardio Common normals: regular rhythm Rate: tachycardic Neuro Common normals: oriented x3 and moves all extremities Sensorium/orientation: awake and alert Course Vital Signs Vital signs: Vital Signs Temperature 98.0 F 04/09/25 21:10 Pulse Rate 124 H 04/09/25 21:10 Respiratory Rate 19 04/09/25 21:10 Blood Pressure 186/124 H 04/09/25 21:10 Pulse Oximetry 98 04/09/25 21:10 Oxygen Delivery Method Room Air 04/09/25 21:10 Temperature 98.0 F 04/09/25 21:10 Pulse Rate 90 04/09/25 22:04 Respiratory Rate 16 04/09/25 22:04 Blood Pressure 162/100 H 04/09/25 22:04 Pulse Oximetry 98 04/09/25 22:04 Oxygen Delivery Method Room Air 04/09/25 22:04 MDM - URI/Sore Throat MDM Narrative Medical decision making narrative: Covid-19, strep, and influenza were negative. Findings were discussed. Prescriptions were provided for prednisone and Zofran. Follow up with pcp for a recheck, further evaluation and treatment. Return precautions were discussed. Pt was aware her BP was elevated in the ED. It was recommended she follow up with her pcp for a recheck of her BP. Differential Diagnosis Differential diagnosis: Likely upper respiratory infection, viral infection, influenza and pharyngitis Medical Records Attestation: I reviewed the patient's medical records. Lab Data Attestation: I reviewed the patient's lab results. Labs: Lab Results 04/09/25 Range/Units 21:25 Influenza Type A Ag Negative Influenza Type B Ag Negative SARS-CoV-2 Ag (CV2AG) Negative (NEGATIVE) Streptococcus Screen Negative Discharge Plan Discharge Chief Complaint: Upper Respiratory Infection Clinical Impression: Upper respiratory infection, viral Patient Disposition: Home, Self-Care Time of Disposition Decision: 21:57 Condition: Good Mode of Transportation: Private Vehicle Prescriptions / Home Meds: New prednisone 20 mg tablet 40 mg PO DAILY 5 Days Qty: 10 0RF ondansetron 4 mg tablet,disintegrating 4 mg PO Q8H PRN (Reason: nausea and vomiting) Qty: 6 0RF No Action methylprednisolone [Medrol (Anish)] 4 mg tablets,dose pack 4 mg PO DAILY Qty: 21 0RF benzonatate 200 mg capsule 200 mg PO TID PRN (Reason: cough) Qty: 10 0RF escitalopram oxalate 20 mg tablet 20 mg PO DAILY albuterol sulfate 90 mcg/actuation HFA aerosol inhaler 2 puff INHALATION Q6H PRN (Reason: shortness of breath or wheezing) amoxicillin 500 mg capsule 500 mg PO TID 10 Days Qty: 30 0RF dexamethasone 4 mg tablet 4 mg PO BID 5 Days Qty: 10 0RF xarbojqxcgcmnbd-dbknakrbd-YM [Bromfed DM] 2-30-10 mg/5 mL syrup 10 ml PO Q6H PRN (Reason: cold symptoms) Qty: 200 0RF ondansetron 4 mg tablet,disintegrating 4 mg PO Q6H PRN (Reason: nausea and vomiting) Qty: 12 0RF promethazine-DM 6.25-15 mg/5 mL syrup 5 ml PO Q6H PRN (Reason: cough) Qty: 118 0RF bupropion HCl 150 mg tablet extended release 24 hr 150 mg PO DAILY ondansetron 4 mg tablet,disintegrating 4 mg PO Q6H PRN (Reason: nausea and vomiting) Qty: 12 0RF cephalexin 500 mg capsule 500 mg PO Q8H 7 Days Qty: 21 0RF hyoscyamine sulfate [Levsin] 0.125 mg tablet 0.125 mg PO Q6H PRN (Reason: abdominal pain) Qty: 12 0RF ondansetron 4 mg tablet,disintegrating 4 mg PO Q6H PRN (Reason: nausea and vomiting) Qty: 12 0RF Print Language: Swazi Instructions: Upper Respiratory Infection (ED) Additional Instructions: Return to the ED for worsening symptoms. Referrals: PAOLO ORTIZ [Primary Care Provider, Family Practice] - 1 week Discharge Date/Time: 04/09/25 22:06
[2025-04-09] MEDS: ACETAMINOPHEN 500 MG TABLET 1000 MG PO (21:41)
[2025-04-09] MEDS: DEXAMETHASONE SOD PHOS 10 MG/ML VIAL PO (21:42)
[2025-04-09 21:54] LABS: SARS-CoV-2 Ag NEGATIVE (NEGATIVE)
[2025-04-09 22:04] VITALS: BP 162/100; PULSE 90; O2SAT 98
== END 2025-04-09 22:06 | disposition home or self-care (01) ==
PROVIDERS: Nurse Practitioner Family; Emergency Provider Emergency Medicine; PCP Family Medicine
DX: J06.9 Acute upper respiratory infection, unspecified (principal)
CPT/HCPCS: 87070; 87804; 87811; 87880; 99285; J1100